=== PATIENT | female | born 1940 | race Caucasian/White ===

== ENCOUNTER 2019-03-14 08:18 | Inpatient (IN) | payer MEDICARE, OTHER ==
[2019-03-14] MEDS ORDERED: IPRATROPIUM-ALBUTEROL 3 ML NEB INHALATION STA (08:32)
[2019-03-14] MEDS ORDERED: HEPARIN SODIUM,PORCINE 5,000 UNIT/ML 1 ML VIAL IV PRN (08:53)
[2019-03-14] MEDS ORDERED: DILTIAZEM DRIP BOLUS FROM BAG 1 MG SOLN IV ONE (08:53)
[2019-03-14] MEDS ORDERED: HEPARIN SODIUM,PORCINE 5,000 UNIT/ML 1 ML VIAL IV ONE ×2 (08:53→16:54)
[2019-03-14] MEDS: HEPARIN SOD,PORK IN 0.45% NACL 25,000 UNIT in 0.45% NACL 1 250ML.BAG IV SCH (09:18)
--- NOTE | 2019-03-14 09:19 | XR ---
EXAMINATION TYPE: XR chest 2V DATE OF EXAM: 03/14/2019 HISTORY: difficulty breathing. REFERENCE: NONE. FINDINGS: There is a right lower lobe infiltrate. There is a left-sided effusion. Heart size upper li mits of normal. IMPRESSION: 1. RIGHT LOWER LOBE INFILTRATE, LIKELY REPRESENTING PNEUMONIA. 2. LEFT-SIDED EFFUSION. 3. BORDERLINE CARDIOMEGALY.
[2019-03-14 09:27] LABS: Basophils % (A) 1 %; Eosinophils # (A) 0.1 k/uL (0-0.7); Eosinophils % (A) 1 %; HCT 41.4 % (34.0-46.0); HGB 13.3 gm/dL (11.4-16.0); Lymphocytes # (A) 0.9 k/uL (1.0-4.8); Lymphocytes % (A) 10 %; MCH 27.6 pg (25.0-35.0); MCV 86.2 fL (80.0-100.0); Mean Platelet Volume 7.1; Monocytes # (A) 0.4 k/uL (0-1.0); Monocytes % (A) 4 %; Neutrophils # (A) 7.3 k/uL (1.3-7.7); Neutrophils % (A) 83 %; Platelet Count 274 k/uL (150-450); RBC 4.81 m/uL (3.80-5.40); RDW 13.5 % (11.5-15.5); WBC 8.7 k/uL (3.8-10.6)
[2019-03-14] MEDS ORDERED: cefTRIAXone IN SWFI 1,000 MG/10 ML SYRINGE IVP STA (09:32)
--- NOTE | 2019-03-14 09:35 | ED ---
SOB HPI - General Chief Complaint: Shortness of Breath Stated Complaint: SOB/Cough Time Seen by Provider: 03/14/19 08:25 Source: patient Mode of arrival: ambulatory Limitations: no limitations - History of Present Illness Initial Comments: 78-year-old female presents emergency Department chief complaint of increasing dyspnea. Patient states she sits increasing shortness breath over the 3-4 weeks. Patient has no significant cardiac or pulmonary history. Patient denies any current chest pain she does have some chest tightness, some noted wheezing. She denies being a smoker. Patient has no knee. Patient has fever or chills at this time but states that she has had some on-and-off symptoms. Denies any leg swelling out of the usual. Denies any abdominal pain including nausea vomiting diarrhea constipation. Patient does admit that she's been on several long plane flights recently. - Related Data Home Medications Medication Instructions Recorded Confirmed Montelukast [Singulair] 10 mg PO HS 03/14/19 03/14/19 Naproxen Sodium [Aleve] 440 mg PO DAILY PRN 03/14/19 03/14/19 Allergies Allergy/AdvReac Type Severity Reaction Status Date / Time No Known Allergies Allergy Verified 03/14/19 10:57 Review of Systems ROS Statement: Those systems with pertinent positive or pertinent negative responses have been documented in the HPI. ROS Other: All systems not noted in ROS Statement are negative. Past Medical History Past Medical History: No Reported History History of Any Multi-Drug Resistant Organisms: None Reported Past Surgical History: No Surgical Hx Reported Past Psychological History: No Psychological Hx Reported Smoking Status: Never smoker Past Alcohol Use History: None Reported Past Drug Use History: None Reported General Exam Limitations: no limitations General appearance: alert, in no apparent distress Head exam: Present: atraumatic, normocephalic, normal inspection Eye exam: Present: normal appearance, PERRL, EOMI. Absent: scleral icterus, conjunctival injection, periorbital swelling ENT exam: Present: normal exam, normal oropharynx, mucous membranes moist, TM's normal bilaterally Neck exam: Present: normal inspection. Absent: tenderness, meningismus, lymphadenopathy Respiratory exam: Present: respiratory distress (Mild), wheezes (Primarily right-sided), rhonchi. Absent: normal lung sounds bilaterally Cardiovascular Exam: Present: tachycardia, irregular rhythm, normal heart sounds. Absent: regular rate, normal rhythm, systolic murmur, diastolic murmur, rubs, gallop, clicks GI/Abdominal exam: Present: soft, normal bowel sounds. Absent: distended, tenderness, guarding, rebound, rigid Neurological exam: Present: alert, oriented X3 Course Vital Signs 03/14/19 03/14/19 03/14/19 08:19 08:28 08:56 Temperature 98.2 F Pulse Rate 89 137 H Respiratory 18 24 Rate Blood Pressure 164/112 O2 Sat by Pulse 97 Oximetry 03/14/19 03/14/19 09:10 11:44 Temperature Pulse Rate 132 H 102 H Respiratory 18 Rate Blood Pressure 142/92 O2 Sat by Pulse 98 Oximetry Medical Decision Making - Medical Decision Making Patient's found to be in A. fib RVR patient was treated with Cardizem chest x- ray shows evidence of pneumonia in which she has had a persistent cough. Patient given a dose of Rocephin was started on azithromycin edition. Patient will continue treatments. Patient's case discussed with hospitalist - Lab Data Result diagrams: 03/14/19 08:32 03/14/19 08:32 Lab Results 03/14/19 03/14/19 03/14/19 Range/Units 08:32 08:32 08:32 WBC 8.7 (3.8-10.6) k/uL RBC 4.81 (3.80-5.40) m/uL Hgb 13.3 (11.4-16.0) gm/dL Hct 41.4 (34.0-46.0) % MCV 86.2 (80.0-100.0) fL MCH 27.6 (25.0-35.0) pg MCHC 32.0 (31.0-37.0) g/dL RDW 13.5 (11.5-15.5) % Plt Count 274 (150-450) k/uL Neutrophils % 83 % Lymphocytes % 10 % Monocytes % 4 % Eosinophils % 1 % Basophils % 1 % Neutrophils # 7.3 (1.3-7.7) k/uL Lymphocytes # 0.9 L (1.0-4.8) k/uL Monocytes # 0.4 (0-1.0) k/uL Eosinophils # 0.1 (0-0.7) k/uL Basophils # 0.0 (0-0.2) k/uL PT 10.5 (9.0-12.0) sec INR 1.0 (<1.2) APTT 22.2 (22.0-30.0) sec D-Dimer 1.30 H (<0.60) mg/L FEU Sodium 130 L (137-145) mmol/L Potassium 4.4 (3.5-5.1) mmol/L Chloride 95 L (98-107) mmol/L Carbon Dioxide 23 (22-30) mmol/L Anion Gap 12 mmol/L BUN 17 (7-17) mg/dL Creatinine 0.63 (0.52-1.04) mg/dL Est GFR (CKD-EPI)AfAm >90 (>60 ml/min/1.73 sqM) Est GFR (CKD-EPI)NonAf 86 (>60 ml/min/1.73 sqM) Glucose 138 H (74-99) mg/dL Calcium 9.0 (8.4-10.2) mg/dL Magnesium 1.8 (1.6-2.3) mg/dL Total Bilirubin 1.1 (0.2-1.3) mg/dL AST 86 H (14-36) U/L ALT 117 H (4-34) U/L Alkaline Phosphatase 139 H (38-126) U/L Troponin I (0.000-0.034) ng/mL NT-Pro-B Natriuret Pep pg/mL Total Protein 6.6 (6.3-8.2) g/dL Albumin 4.0 (3.5-5.0) g/dL 03/14/19 03/14/19 Range/Units 08:32 08:32 WBC (3.8-10.6) k/uL RBC (3.80-5.40) m/uL Hgb (11.4-16.0) gm/dL Hct (34.0-46.0) % MCV (80.0-100.0) fL MCH (25.0-35.0) pg MCHC (31.0-37.0) g/dL RDW (11.5-15.5) % Plt Count (150-450) k/uL Neutrophils % % Lymphocytes % % Monocytes % % Eosinophils % % Basophils % % Neutrophils # (1.3-7.7) k/uL Lymphocytes # (1.0-4.8) k/uL Monocytes # (0-1.0) k/uL Eosinophils # (0-0.7) k/uL Basophils # (0-0.2) k/uL PT (9.0-12.0) sec INR (<1.2) APTT (22.0-30.0) sec D-Dimer (<0.60) mg/L FEU Sodium (137-145) mmol/L Potassium (3.5-5.1) mmol/L Chloride (98-107) mmol/L Carbon Dioxide (22-30) mmol/L Anion Gap mmol/L BUN (7-17) mg/dL Creatinine (0.52-1.04) mg/dL Est GFR (CKD-EPI)AfAm (>60 ml/min/1.73 sqM) Est GFR (CKD-EPI)NonAf (>60 ml/min/1.73 sqM) Glucose (74-99) mg/dL Calcium (8.4-10.2) mg/dL Magnesium (1.6-2.3) mg/dL Total Bilirubin (0.2-1.3) mg/dL AST (14-36) U/L ALT (4-34) U/L Alkaline Phosphatase (38-126) U/L Troponin I <0.012 (0.000-0.034) ng/mL NT-Pro-B Natriuret Pep 2420 pg/mL Total Protein (6.3-8.2) g/dL Albumin (3.5-5.0) g/dL 03/14/19 11:58 EKG 20:39 DC with RVR rate of 135 QRS 76 QT status QTC 326/49 Critical Care Time Critical Care Time: Yes Total Critical Care Time: 35 Critical Care Time: Total 35 minutes of critical care time were used initially evaluated the patient, reviewed past medical history or labs, EKG and chest x-ray. Patient's EKG shows A. fib RVR with a rate of 135 patient was given a bolus of Cardizem 5, started on drip of 5 per hour, patient's heart rate is improving. Chest x-ray shows evidence of pneumonia started on she required pneumonia antibiotics Rocephin and azithromycin. D-dimer was elevated CT was obtained which shows no evidence of PE. Patient will be admitted to with consult to cardiology Disposition Clinical Impression: Atrial fibrillation with RVR, Pneumonia Disposition: ADMITTED IP TO THIS HOSP Condition: Fair Referrals: Nonstaff,Physician [Primary Care Provider] - 1-2 days Time of Disposition: 11:58
[2019-03-14 09:38] LABS: ALT 117 U/L (4-34); AST 86 U/L (14-36); African American GFR (CKD) >90 (>60 ml/min/1.73 sqM); Alkaline Phosphatase 139 U/L (38-126); Anion Gap 12 mmol/L; Blood Urea Nitrogen 17 mg/dL (7-17); Carbon Dioxide 23 mmol/L (22-30); Chloride 95 mmol/L (98-107); Glucose 138 mg/dL (74-99); Magnesium 1.8 mg/dL (1.6-2.3); Non-African American GFR(CKD) 86 (>60 ml/min/1.73 sqM); Potassium 4.4 mmol/L (3.5-5.1); Sodium 130 mmol/L (137-145); Total Bilirubin 1.1 mg/dL (0.2-1.3); Total Protein 6.6 g/dL (6.3-8.2)
[2019-03-14] MEDS: DILTIAZEM 125 MG in SODIUM CHLORIDE 0.9% 100 ML IV SCH (09:40)
[2019-03-14 10:04] LABS: Partial Thromboplastin Time 22.2 sec (22.0-30.0); Prothrombin Time 10.5 sec (9.0-12.0)
[2019-03-14 10:09] LABS: D-Dimer 1.3 mg/L FEU (<0.60)
--- NOTE | 2019-03-14 11:31 | CT ---
EXAMINATION TYPE: CT chest angio for PE DATE OF EXAM: 03/14/2019 COMPARISON: None. HISTORY: SOB/Cough CT DLP: 588.5 mGycm Automated exposure control for dose reduction was used. CONTRAST: CT Chest for pulmonary embolism performed with with IV Contrast, patient injected with 81 mL of Isovu e 370. FINDINGS: There are bilateral pleural effusions. There are mild, diffuse changes of emphysema. There is no significant axillary, mediastinal or hilar adenopathy. There is no evidence of pulmonary embolus. The aorta is normal in caliber without evidence of dissection. There is no pericardial fluid seen. Th e heart is mildly enlarged. Visualized portions of the upper abdomen are unremarkable. There is hypertrophic spondylosis involving the dorsal spine. IMPRESSION: 1. This examination is negative for pulmonary embolus. 2. COPD. 3. Bilateral effusions.
[2019-03-14] MEDS ORDERED: NALOXONE 0.4 MG/ML 1 ML VIAL IV PRN (11:59)
[2019-03-14] MEDS ORDERED: AZITHROMYCIN 500 MG in SODIUM CHLORIDE 0.9% 250 ML IVPB STA (12:00)
[2019-03-14 12:43] LABS: Appearance,Urine Cloudy (Clear); Bacteria,Urine Occasional /hpf; Bilirubin,Urine Negative (Negative); Blood,Urine Trace (Negative); Color,Urine Light Yellow; Glucose,Urine (UA) Negative (Negative); Hyaline Casts,Urine 1 /lpf (0-2); Ketones,Urine Trace (Negative); Leukocyte Esterase,Urine Large (Negative); Nitrite,Urine Positive (Negative); PH, Urine 6.5 (5.0-8.0); Protein,Urine Negative (Negative); RBC,Urine 3 /hpf (0-5); Specific Gravity,Urine 1.023 (1.001-1.035); Squamous Epithelial Cell,Urine <1 /hpf (0-4); Urobilinogen,Urine <2.0 mg/dL (<2.0); WBC,Urine 42 /hpf (0-5)
--- NOTE | 2019-03-14 14:13 | P.HPIM ---
History of Present Illness H&P Date: 03/14/19 The patient is a 78-year-old female, never smoker with a past medical history of osteoarthritis who presented to the ED with complaints of gradually worsening shortness of breath. The patient reports that her breathing has been giving her trouble for the last 3-4 weeks, but has really worsened since she flew back from [place] yesterday. She reports that during her trip, she gradually became more dyspneic and she had to take a wheelchair to get around the airport. She also reports some chest congestion along with a nonproductive cough ongoing for the past 1-2 weeks. The patient also states that she has had multiple UTIs in the past 1 year and has been on 3 different antibiotics for this. She is currently denying dysuria, hematuria, increased frequency, or urgency. She lives primarily in [place], though travels quite a bit to [place] in [place] since her children live in the states. She denied leg pain, chest pain, nausea, vomiting, dizziness, or diaphoresis. She also denied fever or chills. She underwent an extensive evaluation in the emergency room with an EKG that revealed A. fib with RVR at 1 35 bpm, chest x-ray that revealed a right lower lobe infiltrate suspicious for pneumonia along with a left-sided pleural effusion. Her d-dimer was elevated at 1.3 with a subsequent chest CTA which revealed no PE and showed hyperinflation along with bilateral pleural effusions. Laboratory evaluation revealed a troponin of less than 0.012, alk phos 139, AST 86, ALT 117, BNP 2420, WBC count 8.7, hemoglobin 13.3, platelets 274, sodium 1:30, potassium 4.4, BUN 17, creatinine 0.63, and a glucose of 138. Review of Systems Pertinent positives and negatives as discussed in HPI, a complete review of systems was performed and all other systems are negative. Past Medical History Past Medical History: No Reported History History of Any Multi-Drug Resistant Organisms: None Reported Past Surgical History: No Surgical Hx Reported Past Psychological History: No Psychological Hx Reported Smoking Status: Never smoker Past Alcohol Use History: None Reported Past Drug Use History: None Reported Medications and Allergies Home Medications Medication Instructions Recorded Confirmed Type Montelukast [Singulair] 10 mg PO HS 03/14/19 03/14/19 History Naproxen Sodium [Aleve] 440 mg PO DAILY PRN 03/14/19 03/14/19 History Allergies Allergy/AdvReac Type Severity Reaction Status Date / Time No Known Allergies Allergy Verified 03/14/19 10:57 Physical Exam Vitals: Vital Signs Temp Pulse Resp BP Pulse Ox 03/14/19 12:28 108 H 18 117/82 97 03/14/19 12:00 98.2 F 112 H 18 117/82 97 03/14/19 11:44 102 H 18 142/92 98 03/14/19 11:00 112 H 18 97 03/14/19 10:00 126 H 18 97 03/14/19 09:10 132 H 03/14/19 09:00 120 H 18 114/101 97 03/14/19 08:56 137 H 03/14/19 08:42 123 H 18 97 03/14/19 08:28 24 03/14/19 08:19 98.2 F 89 18 164/112 97 Intake and Output 03/13/19 03/14/19 03/14/19 22:59 06:59 14:59 Other: Weight 108.862 kg General: non toxic, no distress, appears at stated age, obese Derm: no unusual rashes/lesions no unusual ecchymoses, warm, dry Head: atraumatic, normocephalic, symmetric Eyes: EOMI, no lid lag, anicteric sclera, pupils equal round reactive to light ENT: Nose and ears atraumatic, no thrush, no pharyngeal erythema Neck: No thyromegaly, no cervical lymphadenopathy, trachea midline, supple Mouth: no lip lesion, mucus membranes moist Cardiovascular: S1S2 reg, no murmur, positive posterior tibial pulse bilateral, 1+ bilateral lower extremity edema, capillary refill less than 2 seconds Lungs: Mild scattered rhonchi with minimal expiratory wheezing and some bibasilar rales, no accessory muscle use Abdominal: soft, nontender to palpation, no guarding, no appreciable organomega ly, normal bowel sounds Ext: no gross muscle atrophy, muscle strength 5 out of 5 in all 4 extremities grossly, no contractures, no calf tenderness bilaterally Neuro: CN II-XI grossly intact, light touch intact all 4 extremities, finger to nose within normal limits, Psych: Alert, oriented, appropriate affect Results CBC & Chem 7: 03/14/19 08:32 03/14/19 08:32 Labs: Abnormal Lab Results - Last 24 Hours (Table) 03/14/19 03/14/19 03/14/19 Range/Units 08:32 08:32 08:32 Lymphocytes # 0.9 L (1.0-4.8) k/uL D-Dimer 1.30 H (<0.60) mg/L FEU Sodium 130 L (137-145) mmol/L Chloride 95 L (98-107) mmol/L Glucose 138 H (74-99) mg/dL AST 86 H (14-36) U/L ALT 117 H (4-34) U/L Alkaline Phosphatase 139 H (38-126) U/L Urine Appearance (Clear) Urine Ketones (Negative) Urine Blood (Negative) Urine Nitrite (Negative) Ur Leukocyte Esterase (Negative) Urine WBC (0-5) /hpf Urine WBC Clumps (None) /hpf Urine Bacteria (None) /hpf 03/14/19 Range/Units 12:12 Lymphocytes # (1.0-4.8) k/uL D-Dimer (<0.60) mg/L FEU Sodium (137-145) mmol/L Chloride (98-107) mmol/L Glucose (74-99) mg/dL AST (14-36) U/L ALT (4-34) U/L Alkaline Phosphatase (38-126) U/L Urine Appearance Cloudy H (Clear) Urine Ketones Trace H (Negative) Urine Blood Trace H (Negative) Urine Nitrite Positive H (Negative) Ur Leukocyte Esterase Large H (Negative) Urine WBC 42 H (0-5) /hpf Urine WBC Clumps Few H (None) /hpf Urine Bacteria Occasional H (None) /hpf Assessment and Plan Plan: Newly diagnosed A. fib -Echocardiogram -Patient received Cardizem IV push in the emergency room -Continue with Cardizem infusion -Cardiology consult -Heparin infusion for now -Cardiac monitoring Community acquired pneumonia -Continue with azithromycin and ceftriaxone -Supplemental oxygen Abnormal LFTs -Possibly due to acute illness -Monitor for now Hyponatremia -Monitor BMP for now Fluid overload, elevated BNP, LE edema -Obtain Echocardiogram DVT prophylaxis -Heparin The patient is admitted with an anticipated less than 2 midnight stay for evaluation of shortness of breath CODE STATUS: No Code Discussed with: Patient Anticipated discharge date: 1-[address]: Home A total of 40 minutes was spent on the care of this complex patient more than 50% of the time was spent in counseling and care coordination.
[2019-03-14] MEDS: IPRATROPIUM-ALBUTEROL 3 ML NEB INHALATION SCH (19:27)
[2019-03-14] MEDS: MONTELUKAST 10 MG TAB PO SCH (20:33)
[2019-03-15 06:19] LABS: HGB 12.1 gm/dL (11.4-16.0); MCH 27.9 pg (25.0-35.0); MCHC 32.7 g/dL (31.0-37.0); MCV 85.2 fL (80.0-100.0); Mean Platelet Volume 7.1; Platelet Count 235 k/uL (150-450); RBC 4.34 m/uL (3.80-5.40); RDW 13.4 % (11.5-15.5); WBC 8.8 k/uL (3.8-10.6)
[2019-03-15 06:54] LABS: ALT 98 U/L (4-34); AST 69 U/L (14-36); African American GFR (CKD) >90 (>60 ml/min/1.73 sqM); Albumin 3.7 g/dL (3.5-5.0); Alkaline Phosphatase 124 U/L (38-126); Anion Gap 12 mmol/L; Blood Urea Nitrogen 14 mg/dL (7-17); Calcium 8.5 mg/dL (8.4-10.2); Carbon Dioxide 22 mmol/L (22-30); Chloride 97 mmol/L (98-107); Glucose 117 mg/dL (74-99); Non-African American GFR(CKD) 88 (>60 ml/min/1.73 sqM); Potassium 3.8 mmol/L (3.5-5.1); Sodium 131 mmol/L (137-145); Total Bilirubin 1.1 mg/dL (0.2-1.3); Total Protein 6.4 g/dL (6.3-8.2)
[2019-03-15] MEDS: IPRATROPIUM-ALBUTEROL 3 ML NEB INHALATION SCH ×4 (08:32→18:53)
[2019-03-15] MEDS: AZITHROMYCIN 250 MG TAB PO SCH (08:36)
[2019-03-15] MEDS: METOPROLOL TARTRATE 50 MG TAB PO SCH ×2 (10:30→20:20)
--- NOTE | 2019-03-15 14:02 | P.CRDCN ---
History of Present Illness Consult date: 03/15/19 Reason for Consult (text): afib rvr Consult reason: atrial fibrillation Chief complaint: Afib RVR History of present illness: HISTORY OF PRESENT ILLNESS AND PLAN: This is a 78-year-old female with history of stress incontinence, chronic bladder infection x 1 year, RIGHT hip OA and asthma. Patient presents to the emergency room on 03/14/2019 with complaints of increasing shortness of breath and chest tightness over the past 3-4 weeks. Patient states she has been traveling often since January to visit her family. Patient states she went to [place] on for a few weeks in January and then to [place] for a few weeks in February. Patient states she used to work here at [employer] [facility] [employer]. Patient has no smoking history. Patient states her weight is up approximately 20 pounds in the past month or so. Patient states she's had increasing shortness of breath, productive hacking cough and fatigue over the past few weeks. Patient has not had a fever at home. Patient also states she has having palpitations at home the past day or 2 and decided to come to the ER. Patient presents with atrial fibrillation with rapid ventricular rate on monitors heart rate currently 124. BP 159/78. 93% on room air. Afebrile. CBC WNL. BNP 2420. D dimer elevated at 1.30. CTA of chest negative for PE but does show COPD and bilateral effusions. Patient states she is also supposed to go for a bladder stimulator for stress incontinence at the end of the month. She continues with hacking productive cough and audible wheeze. No smoking. No diabetes. No history of significant cardiac or pulmonary history. Patient has never followed cardiology. Pt has had pneumonia vaccines but no influenza shot this season. SIGNIFICANT PAST MEDICAL HISTORY: Stress incontinence, chronic bladder infection x 1 year, RIGHT hip OA and asthma. PAST SURGICAL HISTORY: See list. EKG = Afib RVR, with PVC's HR 135. Troponins negative x 1 SIGNIFICANT LABORATORY VALUES: Chest x-ray 03/14/18 = RIGHT lower lobe possible developing pneumonia. LEFT lower lobe effusion. Borderline cardiomegaly. CTA of chest 03/14/18 = Negative for PE. Positive for COPD with bilateral effusions. REVIEW OF SYSTEMS: CONSTITUTIONAL: Denies fever. Denies chills. EYES: Denies blurred vision. Denies blurred vision or vision changes. Denies eye pain. EARS, NOSE, MOUTH & THROAT: Denies headache. Denies sore throat. Denies ear pain Denies hemoptysis. CARDIOVASCULAR: Denies chest pain. C/O shortness of breath. Denies orthopnea. Denies PND. C/O palpitations. RESPIRATORY: C/O cough, sputum, wheezing and shortness of breath. GASTROINTESTINAL: Denies abdominal pain or distention. Denies diarrhea. Denies constipation. Denies nausea. Denies vomiting. MUSCULOSKELETAL: C/O myalgias. INTEGUMENTARY: Denies pruitis. Denies rash. ENDOCRINE: C/O fatigue. Denies weight change. Denies polydipsia. Denies polyurina Denies heat/cold intolerance. GENITOURINARY: C/O incontinence of urine. Denies burning, hematuria or urgency with micturation. HEMATOLOGIC: Denies history of anemia. Denies bleeding. NEUROLOGIC: Denies numbness. Denies tingling. C/O weakness. PSYCHIATRIC: Denies anxiety. Denies depression. PHYSICAL EXAM: VITAL SIGNS: BP 159/78. 93% on room air. Afebrile. GENERAL: Well developed, in no acute distress. HEENT: Head is atraumatic, normocephalic. Pupils are equal, round. Extra ocular movements intact. Mucous membranes moist. Neck supple. No JVD. No carotid bruit. No thyromegaly. LUNGS: Bilateral wheeze and course rhonchi in upper/lower lung barton. No chest wall tenderness on palpation or with deep breathing. HEART: Tachycardic rate and irregular rhythm, no rubs or gallops. S1 and S2 heard. No murmur. ABDOMEN: Abdominal exam, WNL. Bowel sounds x4 quads. Soft, non-tender, without masses, organomegaly, or abdominal aorta enlargement. EXTREMITIES/VASCULAR: Extremities have easily palpable radial, femoral, dorsalis pedis and posterior tibial pulses. No cyanosis, calf tenderness. Scant BLE edema. NEUROLOGIC: Patient is awake, alert and oriented x3. No focal neurologic abnormalities. FINAL IMPRESSION: 1. Pneumonia 2. Acute Bronchitis 3. Ashtma 4. New onset Atrial fibrillation with RVR 5. Bilateral Pleural effusions. PLAN: Discontinue IV heparin. Discontinue Cardizem drip. START Metoprolol Tartrate 50mg twice daily, first dose NOW. Start Eliquis 5 mg twice daily. Continue same all other medical/medication regime. Continue with antibiotic/updraft treatments. Heart healthy diet. Nurse Practitioner note has been reviewed by the Physician. Signing provider agrees with the documented findings, assessment and plan of care. Past Medical History Past Medical History: No Reported History History of Any Multi-Drug Resistant Organisms: None Reported Past Surgical History: No Surgical Hx Reported Additional Past Surgical History / Comment(s): THBSO, Rhinoplasty Past Anesthesia/Blood Transfusion Reactions: No Reported Reaction Past Psychological History: No Psychological Hx Reported Smoking Status: Never smoker Past Alcohol Use History: None Reported Past Drug Use History: None Reported - Past Family History Father Additional Family Medical History / Comment(s): Alcoholism Mother Family Medical History: CVA/TIA Additional Family Medical History / Comment(s): Questionable CVA Medications and Allergies Home Medications Medication Instructions Recorded Confirmed Type Montelukast [Singulair] 10 mg PO HS 03/14/19 03/14/19 History Naproxen Sodium [Aleve] 440 mg PO DAILY PRN 03/14/19 03/14/19 History Allergies Allergy/AdvReac Type Severity Reaction Status Date / Time No Known Allergies Allergy Verified 03/14/19 10:57 Physical Exam Vitals: Vital Signs Temp Pulse Pulse Resp BP Pulse Ox 03/15/19 12:37 97.8 F 76 16 110/78 94 L 03/15/19 12:05 76 03/15/19 11:56 72 03/15/19 09:00 66 03/15/19 08:47 62 94 L 03/15/19 08:00 98.2 F 124 H 16 159/78 93 L 03/15/19 05:16 97.8 F 108 H 18 111/78 95 03/15/19 00:03 97.9 F 111 H 16 135/79 95 03/14/19 21:24 100 03/14/19 20:30 53 L 18 03/14/19 19:45 98.2 F 52 L 18 132/89 93 L 03/14/19 19:38 109 H 03/14/19 19:27 109 H 03/14/19 16:00 116 H 20 140/89 95 03/14/19 15:46 93 L Intake and Output 03/14/19 03/15/19 03/15/19 22:59 06:59 14:59 Intake Total 610.209 174.333 720 Balance 610.209 174.333 720 Intake: Intake, IV Titration 130.209 174.333 Amount Diltiazem 125 mg In 54.542 Sodium Chloride 0.9% 100 ml @ 5 MG/HR 5 mls/hr IV .Q24H [facility] Rx#:[id number] Heparin Sod,Pork in 0.45% 75.667 174.333 NaCl 25,000 unit In 0.45 % NaCl 1 250ml.bag @ 9. 186 UNITS/KG/HR 10 mls/hr IV .Q24H [facility] Rx#: [id number] Oral 480 720 Other: Voiding Method Toilet Toilet Toilet # Voids 1 Weight 109.3 kg Results 03/15/19 05:58 03/15/19 05:58 Cardiac Enzymes 03/15/19 Range/Units 05:58 AST 69 H (14-36) U/L Coagulation 03/14/19 03/14/19 03/15/19 Range/Units 15:55 22:55 05:58 APTT 28.1 35.5 H 46.8 H (22.0-30.0) sec CBC 03/15/19 Range/Units 05:58 WBC 8.8 (3.8-10.6) k/uL RBC 4.34 (3.80-5.40) m/uL Hgb 12.1 (11.4-16.0) gm/dL Hct 37.0 (34.0-46.0) % Plt Count 235 (150-450) k/uL Comprehensive Metabolic Panel 03/15/19 Range/Units 05:58 Sodium 131 L (137-145) mmol/L Potassium 3.8 (3.5-5.1) mmol/L Chloride 97 L (98-107) mmol/L Carbon Dioxide 22 (22-30) mmol/L BUN 14 (7-17) mg/dL Creatinine 0.59 (0.52-1.04) mg/dL Glucose 117 H (74-99) mg/dL Calcium 8.5 (8.4-10.2) mg/dL AST 69 H (14-36) U/L ALT 98 H (4-34) U/L Alkaline Phosphatase 124 (38-126) U/L Total Protein 6.4 (6.3-8.2) g/dL Albumin 3.7 (3.5-5.0) g/dL Current Medications Generic Name Dose Route Start Last Admin Trade Name Freq PRN Reason Stop Dose Admin Albuterol/Ipratropium 3 ml 03/14/19 20:00 03/15/19 11:55 Duoneb 0.5 Mg-3 Mg/3 Ml Soln INHALATION 3 ml RT-QID [facility] Administration Apixaban 5 mg 03/15/19 13:45 Eliquis PO BID [facility] Azithromycin 250 mg 03/15/19 09:00 03/15/19 08:36 Zithromax PO 250 mg DAILY [facility] Administration Diltiazem HCl 125 mg/ Sodium 125 mls @ 5 mls/hr 03/14/19 09:15 03/14/19 21:23 Chloride IV 5 mg/hr .Q24H [facility] 5 mls/hr Infusion 5 MG/HR Ceftriaxone Sodium 1 gm/ 50 mls @ 100 mls/hr 03/15/19 09:00 03/15/19 09:15 Sodium Chloride IVPB 100 mls/hr Q24HR [facility] Administration Metoprolol Tartrate 50 mg 03/15/19 10:15 03/15/19 10:30 Lopressor PO 50 mg BID [facility] Administration Montelukast Sodium 10 mg 03/14/19 21:00 03/14/19 20:33 Singulair PO 10 mg HS [facility] Administration Naloxone HCl 0.2 mg 03/14/19 11:59 Narcan IV Q2M PRN Opioid Reversal Intake and Output 03/14/19 03/15/19 03/15/19 22:59 06:59 14:59 Intake Total 610.209 174.333 720 Balance 610.209 174.333 720 Intake: Intake, IV Titration 130.209 174.333 Amount Diltiazem 125 mg In 54.542 Sodium Chloride 0.9% 100 ml @ 5 MG/HR 5 mls/hr IV .Q24H [facility] Rx#:[id number] Heparin Sod,Pork in 0.45% 75.667 174.333 NaCl 25,000 unit In 0.45 % NaCl 1 250ml.bag @ 9. 186 UNITS/KG/HR 10 mls/hr IV .Q24H [facility] Rx#: [id number] Oral 480 720 Other: Voiding Method Toilet Toilet Toilet # Voids 1 Weight 109.3 kg 03/15/19 05:58 03/15/19 05:58 - EKG Interpretation EKG shows: atrial fibrillation
[2019-03-15] MEDS: APIXABAN 5 MG TAB PO SCH ×2 (14:14→20:20)
--- NOTE | 2019-03-15 15:17 | P.PN ---
Subjective Progress Note Date: 03/15/19 The patient is a 78-year-old female, never smoker with a PMH of stress incontinence and osteoarthritis who presented to the ED with complaints of gradually worsening shortness of breath. The patient reported that her breathing has been giving her trouble for the previous 3-4 weeks, but had really worsened since she flew back from [place] the day prior. She reported that during her trip, she gradually became more dyspneic and she had to take a wheelchair to get around the airport. She also reported some chest congestion along with a nonproductive cough ongoing for the past 1-2 weeks. The patient a lso stated that she had multiple UTIs in the past 1 year and has been on 3 different antibiotics for this. She denied dysuria, hematuria, increased frequency, or urgency. She lives primarily in [place], though travels quite a bit to [place] in [place] since her children live in the states. She denied leg pain, chest pain, nausea, vomiting, dizziness, or diaphoresis. She also denied fever or chills. She underwent an extensive evaluation in the emergency room with an EKG that revealed A. fib with RVR at 1 35 bpm, chest x-ray that revealed a right lower lobe infiltrate suspicious for pneumonia along with a left-sided pleural effusion. Her d-dimer was elevated at 1.3 with a subsequent chest CTA which revealed no PE and showed hyperinflation along with bilateral pleural effusions. Laboratory evaluation revealed a troponin of less than 0.012, alk phos 139, AST 86, ALT 117, BNP 2420, WBC count 8.7, hemoglobin 13.3, platelets 274, sodium 1:30, potassium 4.4, BUN 17, creatinine 0.63, and a glucose of 138. The patient was admitted for further management of newly diagnosed Afib with RVR. Cardiology evaluated the patient and recommended discontinuing the heparin infusion and start the patient on Eliquis orally. The patient's Cardizem infusion was also discontinued in lieu of metoprolol. Patient was seen and examined at the bedside on 03/15. She reported that her shortness of breath had improved significantly since admission. She denied chest pain, nausea, vomiting, or diaphoresis. She also denied abdominal pain, fever, chills, or neck pain. Objective - Vital Signs Vital signs: Vital Signs Temp 97.8 F 03/15/19 12:37 Pulse 94 03/15/19 15:05 Resp 16 03/15/19 12:37 BP 110/78 03/15/19 12:37 Pulse Ox 92 L 03/15/19 14:55 Intake & Output 03/14/19 03/15/19 03/15/19 18:59 06:59 18:59 Intake Total 75.667 708.875 720 Balance 75.667 708.875 720 Weight 108.862 kg 109.3 kg Intake: Intake, IV Titration 75.667 228.875 Amount Diltiazem 125 mg In 54.542 Sodium Chloride 0.9% 100 ml @ 5 MG/HR 5 mls/hr IV .Q24H [facility] Rx#:[id number] Heparin Sod,Pork in 0.45% 75.667 174.333 NaCl 25,000 unit In 0.45 % NaCl 1 250ml.bag @ 9. 186 UNITS/KG/HR 10 mls/hr IV .Q24H [facility] Rx#: [id number] Oral 480 720 Other: Voiding Method Toilet Toilet # Voids 1 - Exam General: Non-toxic, in no acute distress, appears stated age, obese HEENT: NC/AT, anicteric sclerae, moist conjunctiva, no lid-lag, PERRLA Cardiovascular: S1/S2 wnl, no murmurs, rubs, or gallops Lungs: Clear to auscultation, normal respiratory effort, no accessory muscle use Abdominal: Soft, non-tender, non-distended, no guarding, rebound, or rigidity Skin: Warm, dry Extremities: 1+ bilateral lower extremity edema, no contractures Psychiatric: Alert and oriented to person, place and time, appropriate affect Neuro: CN II-XII grossly intact, Strength 5/5 in all 4 extremities, Speech intact, Sensation to light touch grossly intact throughout - Labs CBC & Chem 7: 03/15/19 05:58 03/15/19 05:58 Labs: Abnormal Lab Results - Last 24 Hours (Table) 03/14/19 03/15/19 03/15/19 Range/Units 22:55 05:58 05:58 APTT 35.5 H 46.8 H (22.0-30.0) sec Sodium 131 L (137-145) mmol/L Chloride 97 L (98-107) mmol/L Glucose 117 H (74-99) mg/dL AST 69 H (14-36) U/L ALT 98 H (4-34) U/L Microbiology - Last 24 Hours (Table) 03/14/19 11:39 Blood Culture - Preliminary Blood No Growth after 24 hours 03/14/19 12:12 Urine Culture - Final Urine,Voided Assessment and Plan Plan: Newly diagnosed A. fib -Echocardiogram pending -Cardiology recommendations appreciated -Continue with Eliquis and metoprolol -Cardiac monitoring Community acquired pneumonia -Continue with azithromycin and ceftriaxone -Supplemental oxygen Abnormal LFTs, improved -Possibly due to acute illness -Monitor for now Hyponatremia -Monitor BMP for now Fluid overload, elevated BNP, LE edema -Echocardiogram pending DVT prophylaxis -Eliquis Discussed with: Patient Anticipated discharge date: 03/[address]: Home A total of 30 minutes was spent on the care of this complex patient more than 50% of the time was spent in counseling and care coordination.
[2019-03-15] MEDS ORDERED: FUROSEMIDE 10 MG/ML 4 ML VIAL IV STA ×2 (16:26→17:32)
[2019-03-15] MEDS ORDERED: ACETAMINOPHEN TAB 325 MG TAB PO PRN (16:27)
--- NOTE | 2019-03-15 16:51 | XR ---
EXAMINATION TYPE: XR chest 1V DATE OF EXAM: 03/15/2019 COMPARISON: 03/14/2019 HISTORY: Short of breath TECHNIQUE: FINDINGS: There is probably vascular congestion. There is blunting of the costophrenic angles. Heart is enlarged. There is some pulmonary interstitial edema. There are chest leads. IMPRESSION: Congestive heart failure with pleural effusions. Chest appears slightly worse than yester day.
[2019-03-15] MEDS: DILTIAZEM 125 MG in SODIUM CHLORIDE 0.9% 100 ML IV SCH (19:53)
[2019-03-15] MEDS: HEPARIN SOD,PORK IN 0.45% NACL 25,000 UNIT in 0.45% NACL 1 250ML.BAG IV SCH (19:53)
[2019-03-15] MEDS: MONTELUKAST 10 MG TAB PO SCH (20:20)
[2019-03-15] MEDS: FUROSEMIDE 10 MG/ML 4 ML VIAL IV SCH (20:20)
[2019-03-16 06:45] LABS: HGB 11.6 gm/dL (11.4-16.0); MCH 27.7 pg (25.0-35.0); MCHC 33.1 g/dL (31.0-37.0); MCV 83.6 fL (80.0-100.0); Mean Platelet Volume 7.2; Platelet Count 194 k/uL (150-450); RBC 4.18 m/uL (3.80-5.40); RDW 13.3 % (11.5-15.5); WBC 9.3 k/uL (3.8-10.6)
[2019-03-16 07:01] LABS: Calcium 8.3 mg/dL (8.4-10.2); Potassium 3.6 mmol/L (3.5-5.1)
[2019-03-16] MEDS: IPRATROPIUM-ALBUTEROL 3 ML NEB INHALATION SCH ×4 (07:56→21:07)
[2019-03-16] MEDS: APIXABAN 5 MG TAB PO SCH ×2 (09:38→20:55)
[2019-03-16] MEDS: FUROSEMIDE 10 MG/ML 4 ML VIAL IV SCH ×2 (09:38→17:29)
[2019-03-16] MEDS: METOPROLOL TARTRATE 50 MG TAB PO SCH ×2 (09:38→20:55)
[2019-03-16] MEDS: AZITHROMYCIN 250 MG TAB PO SCH (09:38)
--- NOTE | 2019-03-16 12:01 | ECHOF ---
Referral Reason:Afib RVR MEASUREMENTS -------- HEIGHT: 167.6 cm WEIGHT: 108.9 kg BP: 130/84 RVIDd: 3.4 cm (< 3.3) IVSd: 1.4 cm (0.6 - 1.1) LVIDd: 4.6 cm (3.9 - 5.3) LVPWd: 1.3 cm (0.6 - 1.1) IVSs: 1.5 cm LVIDs: 4.1 cm LVPWs: 1.3 cm LA Diam: 3.5 cm (2.7 - 3.8) LAESV Index (A-L): 29.11 ml/m Ao Diam: 2.9 cm (2.0 - 3.7) AV Cusp: 2.1 cm (1.5 - 2.6) MV EXCURSION: 10.759 mm (> 18.000) MV EF SLOPE: 42 mm/s (70 - 150) EPSS: 1.2 cm RAP: 15.00 mmHg RVSP: 48.03 mmHg TAPSE: 12.49 mm FINDINGS -------- Atrial fibrillation. This was a technically adequate study. The left ventricular size is normal. There is moderate concentric left ventricular hypertrophy. O verall left ventricular systolic function is severely impaired with, an EF between 20 - 25 %. The right ventricle is mildly enlarged. LA is midly dilated 29-33ml/m2. The right atrium is normal in size. Interatrial and interventricular septum intact. The aortic valve is trileaflet and appears structurally normal. Mild mitral annular calcification present. Moderate mitral regurgitation is present. Mild tricuspid regurgitation present. There is moderate pulmonary hypertension. The right ventric ular systolic pressure, as measured by Doppler, is 48.03mmHg. Trace/mild (physiologic) pulmonic regurgitation. The aortic root size is normal. The inferior vena cava is dilated with no significant inspiratory collapse which is consistent estima rajendra right atrial pressure of >15 mmHg. There is no pericardial effusion. CONCLUSIONS -------- 1. Atrial fibrillation. 2. This was a technically adequate study. 3. The left ventricular size is normal. 4. There is moderate concentric left ventricular hypertrophy. 5. Overall left ventricular systolic function is severely impaired with, an EF between 20 - 25 %. 6. The right ventricle is mildly enlarged. 7. LA is midly dilated 29-33ml/m2. 8. The right atrium is normal in size. 9. Interatrial and interventricular septum intact. 10. The aortic valve is trileaflet and appears structurally normal. 11. Mild mitral annular calcification present. 12. Moderate mitral regurgitation is present. 13. Mild tricuspid regurgitation present. 14. There is moderate pulmonary hypertension. 15. The right ventricular systolic pressure, as measured by Doppler, is 48.03mmHg. 16. Trace/mild (physiologic) pulmonic regurgitation. 17. The aortic root size is normal. 18. The inferior vena cava is dilated with no significant inspiratory collapse which is consistent es timated right atrial pressure of >15 mmHg. 19. There is no pericardial effusion. ARTIST [employer]NE[employer]IN COLORING: Ciarra Do RDCS
[2019-03-16] MEDS: SPIRONOLACTONE 25 MG TAB PO SCH (12:49)
[2019-03-16] MEDS: LISINOPRIL 5 MG TAB PO SCH (12:49)
--- NOTE | 2019-03-16 15:19 | P.PN ---
Subjective Progress Note Date: 03/16/19 Principal diagnosis: A. fib, new onset CHF Patient was seen and examined. No acute events overnight. Patient reports improvement in her breathing since admission. She denies any chest pain or palpitations. No nausea or vomiting. No fever or chills. Currently rate controlled with heart rate in the 70s on telemetry. Objective - Vital Signs Vital signs: Vital Signs Temp 97.8 F 03/16/19 12:00 Pulse 74 03/16/19 12:00 Resp 20 03/16/19 12:00 BP 122/59 03/16/19 12:00 Pulse Ox 96 03/16/19 12:00 Intake & Output 03/15/19 03/16/19 03/16/19 18:59 06:59 18:59 Intake Total 720 340 360 Output Total 250 Balance 720 90 360 Weight 110 kg Intake: Intake, IV Titration 100 Amount cefTRIAXone 1 gm In 100 Sodium Chloride 0.9% 50 ml @ 100 mls/hr IVPB Q24HR [facility] Rx#:[id number] Oral 720 240 360 Output: Urine 250 Other: Voiding Method Toilet Toilet Toilet # Voids 1 2 - Exam General: [non toxic], [no distress], [appears at stated age] Derm: [warm], [dry] Head: [atraumatic], [normocephalic], [symmetric] Eyes: [EOMI], [no lid lag], [anicteric sclera] Mouth: [no lip lesion], [mucus membranes moist] Cardiovascular: [S1S2 reg], [no murmur], [positive DP pulse bilateral], Lungs: [Decreased breath sounds bilateral], [scattered rhonchi] , [no accessory muscle use] Abdominal: [soft], [ nontender to palpation], [no guarding], [no appreciable organomegaly] Ext: [no gross muscle atrophy], [no edema], [no contractures] Neuro: [no focal neuro deficits] Psych: [Alert], [oriented], [appropriate affect] - Labs CBC & Chem 7: 03/16/19 06:09 03/16/19 06:09 Labs: Abnormal Lab Results - Last 24 Hours (Table) 03/16/19 Range/Units 06:09 Sodium 125 L (137-145) mmol/L Chloride 89 L (98-107) mmol/L Calcium 8.3 L (8.4-10.2) mg/dL Microbiology - Last 24 Hours (Table) 03/14/19 11:39 Blood Culture - Preliminary Blood No Growth after 48 hours 03/14/19 12:12 Urine Culture - Final Urine,Voided Assessment and Plan Assessment: Newly diagnosed atrial fibrillation Acute systolic CHF exacerbation, new diagnosis Hyponatremia Abnormal UA Morbid obesity Patient is currently rate controlled with heart rate in the 70s. She is on Eliquis for anticoagulation and metoprolol for rate control. Case was discussed with cardiology, plans on cardiac catheterization in the outpatient setting. Echocardiogram showing EF 20-25%. Patient has been started on ANKUR inhibitor and beta juan c. Aldactone has been added as well. She is currently being diuresed with Lasix 40 mg IV twice a day. Strict intake and output intake has been ordered along with daily weights. Cardiology is on board. Patient's sodium has worsened from 131-125. She is also on IV diuresis. Will obtain urine electrolytes and osmolality for further workup of her hyponatremia. I would discontinue azithromycin as I do not think that patient has pneumonia. We'll continue ceftriaxone for 1 more day given her abnormal UA with positive nitrite and leukocyte esterase. Blood cultures and urine culture has been negative thus far. [Discussed with cardiology, continue IV diuresis. Plans for outpatient cardiac catheterization. She is pending clinical improvement. Likely DC in 1-3 days.]
--- NOTE | 2019-03-16 15:37 | P.PN ---
Subjective Progress Note Date: 03/16/19 This is a 78-year-old female with history of stress incontinence, chronic bladder infection x 1 year, RIGHT hip OA and asthma. Patient presents to the emergency room on 03/14/2019 with complaints of increasing shortness of breath and chest tightness over the past 3-4 weeks. Patient states she has been traveling often since January to visit her family. Patient states she went to [place] on for a few weeks in January and then to [place] for a few weeks in February. Patient used to work here at [employer]. Patient has no smoking history. Patient states her weight is up approximately 20 pounds in the past month or so. Patient states she's had increasing shortness of breath, productive hacking cough and fatigue over the past few weeks. Patient has not had a fever at home. Patient also states she has having palpitations at home the past day or 2 and decided to come to the ER. Patient presents with atrial fibrillation with rapid ventricular rate . She was seen in consultation yesterday by Dr. Sean Eng. Patient had been initiated on Eliquis for anticoagulation as well as metoprolol. She was also initiated on IV Lasix and has been overall diuresing well. She does state that her breathing is mildly improved today, continues to have some shortness of breath .Echocardiogram with Doppler study was performed which revealed an ejection fraction of 20-25%. Moderate mitral regurgitation noted. I did have a lengthy discussion with the patient and family member regarding the low ejection fraction, we will add an ANKUR inhibitor and Aldactone to her medication regime today continue to diurese the patient with IV Lasix. Objective - Vital Signs Vital signs: Vital Signs Temp 97.8 F 03/16/19 12:00 Pulse 74 03/16/19 12:00 Resp 20 03/16/19 12:00 BP 122/59 03/16/19 12:00 Pulse Ox 96 03/16/19 12:00 Intake & Output 03/15/19 03/16/19 03/16/19 18:59 06:59 18:59 Intake Total 720 340 360 Output Total 250 Balance 720 90 360 Weight 110 kg Intake: Intake, IV Titration 100 Amount cefTRIAXone 1 gm In 100 Sodium Chloride 0.9% 50 ml @ 100 mls/hr IVPB Q24HR [facility] Rx#:[id number] Oral 720 240 360 Output: Urine 250 Other: Voiding Method Toilet Toilet Toilet # Voids 1 2 - Exam PHYSICAL EXAMINATION: GENERAL: 89-year-old female in no acute distress at the time of my examination HEENT: Head is atraumatic, normocephalic. Pupils equal, round. Sclera anicteric. Conjunctiva are clear. Mucous membranes of the mouth are moist. Neck is supple. There is elevated jugular venous pressure. No carotid bruit is heard. HEART EXAMINATION: S1 and S2 irregularly irregular a systolic murmur is heard CHEST EXAMINATION: Reveal rales to bilateral bases ABDOMEN: Soft, nontender. Bowel sounds are heard. No organomegaly noted. EXTREMITIES: 2+ peripheral pulses with trace evidence of peripheral edema and no calf tenderness noted. NEUROLOGIC patient is awake, alert and oriented 3 . - Labs CBC & Chem 7: 03/16/19 06:09 03/16/19 06:09 Labs: Abnormal Lab Results - Last 24 Hours (Table) 03/16/19 Range/Units 06:09 Sodium 125 L (137-145) mmol/L Chloride 89 L (98-107) mmol/L Calcium 8.3 L (8.4-10.2) mg/dL Microbiology - Last 24 Hours (Table) 03/14/19 11:39 Blood Culture - Preliminary Blood No Growth after 48 hours 03/14/19 12:12 Urine Culture - Final Urine,Voided Assessment and Plan Plan: Assessment and plan #1 systolic congestive heart failure acute on chronic #2 new onset atrial fibrillation, persistent #3 pneumonia with acute bronchitis #4 cardiomyopathy Plan We will continue current dose of IV Lasix, we will also add an ANKUR inhibitor and Aldactone to the patient's medication regime. Continue to monitor the intake and output along with daily weights and daily lytes BUN and creatinine. The IV Lasix dose will be increased to daily hourly today. We will also repeat a chest x-ray tomorrow. Once the patient is stable from a heart failure perspective, the plan is for her to be discharged home and returned back for cardiac catheterization as an outpatient. DNP note has been reviewed, I agree with a documented findings and plan of care. Patient was seen and examined.
[2019-03-16] MEDS: MONTELUKAST 10 MG TAB PO SCH (20:55)
[2019-03-17] MEDS: FUROSEMIDE 10 MG/ML 4 ML VIAL IV SCH ×5 (00:08→23:29)
[2019-03-17 06:39] LABS: African American GFR (CKD) >90 (>60 ml/min/1.73 sqM); Anion Gap 7 mmol/L; Blood Urea Nitrogen 15 mg/dL (7-17); Calcium 8.4 mg/dL (8.4-10.2); Carbon Dioxide 33 mmol/L (22-30); Chloride 94 mmol/L (98-107); Glucose 86 mg/dL (74-99); Non-African American GFR(CKD) 82 (>60 ml/min/1.73 sqM); Sodium 134 mmol/L (137-145)
[2019-03-17] MEDS: IPRATROPIUM-ALBUTEROL 3 ML NEB INHALATION SCH ×4 (07:54→18:51)
[2019-03-17] MEDS ORDERED: Potassium Replacement Protocol 1 EACH MISC MISCELLANE PRN (07:58)
--- NOTE | 2019-03-17 08:59 | XR ---
EXAMINATION TYPE: XR chest 2V DATE OF EXAM: 03/17/2019 COMPARISON: 03/15/2019 HISTORY: Shortness of breath. Follow-up for congestive heart failure TECHNIQUE: Frontal and lateral views of the chest are obtained. FINDINGS: Degeneration of the lung bases. Very trace pleural effusion blunts the left costophrenic a ngle. Interstitial prominence remains throughout her upper. Cardiomediastinal silhouette is enlarged as seen on the prior. Prominence of the katya may relate to pulmonary arterial hypertension. No hilar mass seen on the recent CT dated 03/14/2019. IMPRESSION: Improved pleural effusions, now trace on the left and improved aeration of the lung base s. Mild interstitial pulmonary edema remains throughout.
[2019-03-17] MEDS: METOPROLOL TARTRATE 50 MG TAB PO SCH ×2 (09:00→21:16)
[2019-03-17] MEDS: LISINOPRIL 5 MG TAB PO SCH (09:01)
[2019-03-17] MEDS: SPIRONOLACTONE 25 MG TAB PO SCH (09:01)
[2019-03-17] MEDS: POTASSIUM CHLORIDE ER 20 MEQ TAB.ER PO SCH ×5 (09:01→15:51)
[2019-03-17] MEDS: APIXABAN 5 MG TAB PO SCH ×2 (09:01→21:16)
--- NOTE | 2019-03-17 14:24 | P.PN ---
Subjective Progress Note Date: 03/17/19 This is a 78-year-old female with history of stress incontinence, chronic bladder infection x 1 year, RIGHT hip OA and asthma. Patient presents to the emergency room on 03/14/2019 with complaints of increasing shortness of breath and chest tightness over the past 3-4 weeks. Patient states she has been traveling often since January to visit her family. Patient states she went to [place] on for a few weeks in January and then to [place] for a few weeks in February. Patient used to work here at [employer]. Patient has no smoking history. Patient states her weight is up approximately 20 pounds in the past month or so. Patient states she's had increasing shortness of breath, productive hacking cough and fatigue over the past few weeks. Patient has not had a fever at home. Patient also states she has having palpitations at home the past day or 2 and decided to come to the ER. Patient presents with atrial fibrillation with rapid ventricular rate . She was seen in consultation yesterday by Dr. Sean Eng. Patient had been initiated on Eliquis for anticoagulation as well as metoprolol. She was also initiated on IV Lasix and has been overall diuresing well. She does state that her breathing is mildly improved today, continues to have some shortness of breath .Echocardiogram with Doppler study was performed which revealed an ejection fraction of 20-25%. Moderate mitral regurgitation noted. I did have a lengthy discussion with the patient and family member regarding the low ejection fraction, we will add an ANKUR inhibitor and Aldactone to her medication regime today continue to diurese the patient with IV Lasix. 03/17/2019 Patient was seen and examined this morning, she diuresed well over night last night.weight is down significantly today. Sodium 134, potassium 3.0, BUN 15, creatinine 0.7.chest x-ray today does show some improvement as well. She co ntinues to be in atrial fibrillation but her rate is under much better control. Objective - Vital Signs Vital signs: Vital Signs Temp 98.1 F 03/17/19 12:00 Pulse 66 03/17/19 12:00 Resp 18 03/17/19 12:00 BP 126/76 03/17/19 12:00 Pulse Ox 97 03/17/19 12:00 Intake & Output 03/16/19 03/17/19 03/17/19 18:59 06:59 18:59 Intake Total 360 462 Balance 360 462 Weight 104.6 kg Intake: Oral 360 462 Other: Voiding Method Toilet Toilet # Voids 1 - Exam PHYSICAL EXAMINATION: GENERAL: 89-year-old female in no acute distress at the time of my examination HEENT: Head is atraumatic, normocephalic. Pupils equal, round. Sclera an icteric. Conjunctiva are clear. Mucous membranes of the mouth are moist. Neck is supple. There is elevated jugular venous pressure. No carotid bruit is heard. HEART EXAMINATION: S1 and S2 irregularly irregular a systolic murmur is heard CHEST EXAMINATION: Reveal rales to bilateral bases ABDOMEN: Soft, nontender. Bowel sounds are heard. No organomegaly noted. EXTREMITIES: 2+ peripheral pulses with trace evidence of peripheral edema and no calf tenderness noted. NEUROLOGIC patient is awake, alert and oriented 3 . - Labs CBC & Chem 7: 03/16/19 06:09 03/17/19 05:59 Labs: Abnormal Lab Results - Last 24 Hours (Table) 03/17/19 Range/Units 05:59 Sodium 134 L (137-145) mmol/L Potassium 3.0 L (3.5-5.1) mmol/L Chloride 94 L (98-107) mmol/L Carbon Dioxide 33 H (22-30) mmol/L Osmolality 275 L (280-301) mosm/kg Microbiology - Last 24 Hours (Table) 03/14/19 11:39 Blood Culture - Preliminary Blood No Growth after 72 hours Assessment and Plan Plan: Assessment and plan #1 systolic congestive heart failure acute on chronic #2 new onset atrial fibrillation, persistent #3 pneumonia with acute bronchitis #4 cardiomyopathy Plan we will continue current dose of IV Lasix for 24 hours and changed to oral diuretics from tomorrow. Replace potassium. Check lytes BUN and creatinine in the morning. The plan is that the patient be discharged home, cardiac catheterization as an outpatient with subsequent cardioversion down the road. DNP note has been reviewed, I agree with a documented findings and plan of care. Patient was seen and examined.
--- NOTE | 2019-03-17 16:37 | P.PN ---
Subjective Progress Note Date: 03/17/19 Principal diagnosis: A. fib, new onset CHF Patient was seen and examined. No acute events overnight. Patient reports improvement in her breathing since admission. She denies any chest pain, dizziness or palpitations. No nausea or vomiting. No fever or chills. Currently rate controlled with heart rate in the 70-80s on telemetry. Objective - Vital Signs Vital signs: Vital Signs Temp 98.1 F 03/17/19 12:00 Pulse 62 03/17/19 15:41 Resp 18 03/17/19 15:29 BP 126/76 03/17/19 12:00 Pulse Ox 97 03/17/19 15:29 Intake & Output 03/16/19 03/17/19 03/17/19 18:59 06:59 18:59 Intake Total 360 462 Balance 360 462 Weight 104.6 kg Intake: Oral 360 462 Other: Voiding Method Toilet Toilet # Voids 1 - Exam General: [non toxic], [no distress], [appears at stated age] Derm: [warm], [dry] Head: [atraumatic], [normocephalic], [symmetric] Eyes: [EOMI], [no lid lag], [anicteric sclera] Mouth: [no lip lesion], [mucus membranes moist] Cardiovascular: [S1S2 reg], [irregularly irregular], [positive DP pulse bilateral], Lungs: [Decreased breath sounds bilateral], [ronchi at the bases] , [no accessory muscle use] Abdominal: [soft], [ nontender to palpation], [no guarding], [no appreciable organomegaly] Ext: [no gross muscle atrophy], [1+ bilateral lower extremity edema], [no contractures] Neuro: [no focal neuro deficits] Psych: [Alert], [oriented], [appropriate affect] - Labs CBC & Chem 7: 03/16/19 06:09 03/17/19 05:59 Labs: Abnormal Lab Results - Last 24 Hours (Table) 03/17/19 Range/Units 05:59 Sodium 134 L (137-145) mmol/L Potassium 3.0 L (3.5-5.1) mmol/L Chloride 94 L (98-107) mmol/L Carbon Dioxide 33 H (22-30) mmol/L Osmolality 275 L (280-301) mosm/kg Microbiology - Last 24 Hours (Table) 03/14/19 11:39 Blood Culture - Preliminary Blood No Growth after 72 hours Assessment and Plan Assessment: Newly diagnosed atrial fibrillation Acute systolic CHF exacerbation, new diagnosis Hypokalemia Hyponatremia Abnormal UA Morbid obesity Patient is currently rate controlled with heart rate in the 80-70s. She is on Eliquis for anticoagulation and metoprolol for rate control. Case was discussed with cardiology, plans on cardiac catheterization in the outpatient setting. Echocardiogram showing EF 20-25%. Patient has been started on ANKUR inhibitor and beta juan c. Aldactone has been added as well. She is currently being diuresed with Lasix 40 mg IV twice a day with plans on transitioning to oral tomorrow. Strict intake and output intake has been ordered along with daily weights. Cardiology is on board. Patients potassium was 3 this morning. This has been replaced by protocol. We will re-check BMP tomorrow morning. Patient's sodium has worsened from 131-125-134. She is also on IV diuresis. Urine electrolytes and osmolality shows hypotonic hyponatremia. She would benefit from fluid restriction. I would discontinue azithromycin as I do not think that patient has pneumonia. She has completed 3 days of Rocephin for UTI. Blood cultures and urine culture has been negative thus far. [Discussed with cardiology, continue IV diuresis. Plans for outpatient cardiac catheterization. She is pending clinical improvement. Likely DC tomorrow.]
[2019-03-17] MEDS: MONTELUKAST 10 MG TAB PO SCH (21:16)
[2019-03-18 04:01] VITALS: TEMP 97.7
[2019-03-18] MEDS: IPRATROPIUM-ALBUTEROL 3 ML NEB INHALATION SCH ×2 (08:04→11:19)
[2019-03-18 08:35] LABS: Calcium 9.1 mg/dL (8.4-10.2); Potassium 3.9 mmol/L (3.5-5.1)
[2019-03-18] MEDS: FUROSEMIDE 10 MG/ML 4 ML VIAL IV SCH (08:54)
[2019-03-18] MEDS: METOPROLOL TARTRATE 50 MG TAB PO SCH (08:55)
[2019-03-18] MEDS: APIXABAN 5 MG TAB PO SCH (08:55)
[2019-03-18] MEDS: SPIRONOLACTONE 25 MG TAB PO SCH (08:55)
[2019-03-18] MEDS: LISINOPRIL 5 MG TAB PO SCH (08:55)
[2019-03-18 11:34] VITALS: BP 123/61; PULSE 52; RESP 18
--- NOTE | 2019-03-18 11:58 | P.DS ---
Providers Date of admission: 03/16/19 08:31 Expected date of discharge: 03/18/19 Attending physician: Giuliana Larios DO Consults: 03/14/19 12:00 Consult Physician Urgent Consulting Provider: Gerald Eng Consult Reason/Comments: afib rvr Do you want consulting provider notified?: Yes Primary care physician: Physician Nonstaff Hospital Course: The patient is a 78-year-old female, never smoker with a PMH of stress incontinence and osteoarthritis who presented to the ED with complaints of gradually worsening shortness of breath. The patient reported that her breathing has been giving her trouble for the previous 3-4 weeks, but had really worsened since she flew back from [place] the day prior. She reported that during her trip, she gradually became more dyspneic and she had to take a wheelchair to get around the airport. She also reported some chest congestion along with a nonproductive cough ongoing for the past 1-2 weeks. The patient also stated that she had multiple UTIs in the past 1 year and has been on 3 different antibiotics for this. She denied dysuria, hematuria, increased frequency, or urgency. She lives primarily in [place], though travels quite a bit to [place] in [place] since her children live in the states. She denied leg pain, chest pain, nausea, vomiting, dizziness, or diaphoresis. She also denied fever or chills. She underwent an extensive evaluation in the emergency room with an EKG that revealed A. fib with RVR at 1 35 bpm, chest x-ray that revealed a right lower lobe infiltrate suspicious for pneumonia along with a left-sided pleural effusion. Her d-dimer was elevated at 1.3 with a subsequent chest CTA which revealed no PE and showed hyperinflation along with bilateral pleural effusions. Laboratory evaluation revealed a troponin of less than 0.012, alk phos 139, AST 86, ALT 117, BNP 2420, WBC count 8.7, hemoglobin 13.3, platelets 274, sodium 1:30, potassium 4.4, BUN 17, creatinine 0.63, and a glucose of 138. The patient was admitted for further management of newly diagnosed Afib with RVR. Cardiology evaluated the patient and recommended discontinuing the heparin infusion and start the patient on Eliquis orally. The patient's Cardizem infusion was also discontinued in lieu of metoprolol. Echocardiogram came back with EF 20-25%. Patient was started on lisinopril and metoprolol. Aldactone was added. She was initially diuresed with Lasix 40 mg IV twice a day which were transitioned to oral on discharge. Her hypokalemia was replaced and her potassium was within normal limits on discharge. Patient initially had a sodium of 131 with that went down to 125. Urine electrolytes indicated hypotonic hyponatremia. Her sodium improved and was within normal limits on discharge. Patient was seen and examined. No acute events overnight. Patient with no complaints. She denies any chest pain, shortness breath or palpitations. No nausea or vomiting. No fever or chills. General: [non toxic], [no distress], [appears at stated age] Derm: [warm], [dry] Head: [atraumatic], [normocephalic], [symmetric] Eyes: [EOMI], [no lid lag], [anicteric sclera] Mouth: [no lip lesion], [mucus membranes moist] Cardiovascular: [S1S2 reg], [irregularly irregular], [positive DP pulse bilateral], Lungs: [Decreased breath sounds bilateral], [ronchi at the bases] , [no accessory muscle use] Abdominal: [soft], [ nontender to palpation], [no guarding], [no appreciable organomegaly] Ext: [no gross muscle atrophy], [1+ bilateral lower extremity edema], [no contractures] Neuro: [no focal neuro deficits] Psych: [Alert], [oriented], [appropriate affect] Newly diagnosed atrial fibrillation Acute systolic CHF exacerbation, new diagnosis Hypokalemia Hyponatremia Abnormal UA Morbid obesity Patient is currently rate controlled with heart rate in the 80-70s. She is on Eliquis for anticoagulation and metoprolol for rate control. Case was discussed with cardiology, plans on cardiac catheterization in the outpatient setting. Echocardiogram showing EF 20-25%. Patient has been started on ANKUR inhibitor and beta juan c. Aldactone has been added as well. She is currently being diuresed with Lasix 40 mg twice a day which has been changed from IV to oral. Strict intake and output intake has been ordered along with daily weights. Cardiology is on board. Patients potassium was within normal limits this morning. Patient's sodium has worsened from [phone]-within normal limits. She is also on IV diuresis. Urine electrolytes and osmolality shows hypotonic hyponatremia. Nothing further to do. I would discontinue azithromycin as I do not think that patient has pneumonia. She has completed 3 days of Rocephin for UTI. Blood cultures and urine culture has been negative thus far. [ Plans for outpatient cardiac catheterization. We will get the dietitian to see the patient regarding low salt and fluid restriction. Discussed with RN, 6 minute walk test pending. DC today. Follow-up cardiology outpatient for cardiac catheterization] Pertinent Studies: Chest x-ray, chest CTA, echocardiogram Patient Condition at Discharge: Stable Plan - Discharge Summary Discharge Rx Participant: Yes New Discharge Prescriptions: New Spironolactone [Aldactone] 25 mg PO DAILY #30 tab Apixaban [Eliquis] 5 mg PO BID #60 tab Furosemide [Lasix] 40 mg PO BID@0900,1600 #60 tab Metoprolol Tartrate [Lopressor] 50 mg PO BID #60 tab Lisinopril [Zestril] 10 mg PO DAILY #30 tab Continue Naproxen Sodium [Aleve] 440 mg PO DAILY PRN PRN Reason: Pain Montelukast [Singulair] 10 mg PO HS Discharge Medication List Montelukast [Singulair] 10 mg PO HS 03/14/19 [History] Naproxen Sodium [Aleve] 440 mg PO DAILY PRN 03/14/19 [History] Apixaban [Eliquis] 5 mg PO BID #60 tab 03/18/19 [Rx] Furosemide [Lasix] 40 mg PO BID@0900,1600 #60 tab 03/18/19 [Rx] Lisinopril [Zestril] 10 mg PO DAILY #30 tab 03/18/19 [Rx] Metoprolol Tartrate [Lopressor] 50 mg PO BID #60 tab 03/18/19 [Rx] Spironolactone [Aldactone] 25 mg PO DAILY #30 tab 03/18/19 [Rx] Follow up Appointment(s)/Referral(s): Gerald Eng MD [STAFF PHYSICIAN] - 03/25/19 1:30 am Nonstaff,Physician [Primary Care Provider] - 1-2 days Activity/Diet/Wound Care/Special Instructions: Diet: Cardiac Follow-up PCP within 3 days of discharge. Follow-up cardiology within 1 week of discharge. Please take all medications as advised. Come back to the 911 for worsening chest pain, shortness of breath, palpitations or dizziness. Discharge Disposition: HOME SELF-CARE
--- NOTE | 2019-03-18 13:02 | PN ---
PROGRESS NOTE Mrs. Alonzo has what seems to be a cardiomyopathy with heart failure and atrial fibrillation. Her rate is much better controlled. She is feeling better. Weight is down. Vitals are stable. JVD 1 cm. No carotid bruit. S1, S2 heard normally, a short systolic murmur noted in the left lower sternal border. Lungs are clear. Abdomen and lower extremity exam are unchanged. The edema has almost completely resolved. Her blood pressure is good. I will continue the same medications, increase lisinopril. Discharge today. Will see her in the office in 7 to 10 days. She will require coronary angiography to rule out obstructive CAD and also electrical cardioversion if she remains in atrial fibrillation. I explained this to the patient at length. MMODL / IJN: [id number] /
[2019-03-18 14:21] VITALS: BMI 36.8
[2019-03-18] MEDS ORDERED: FUROSEMIDE 40 MG TAB PO SCH (16:00)
[2019-03-19] MEDS ORDERED: LISINOPRIL 10 MG TAB PO SCH (09:00)
== END 2019-03-18 15:35 | disposition home or self-care (01) | DRG 292 ==
LOC: EC 08:18 → 3SCARD 12:05 → OBSVTOIN 03-16 08:31
PROVIDERS: ADMIT Internal Medicine; ATTEND Internal Medicine
DX: I50.23 Acute on chronic systolic (congestive) heart failure (principal); E87.1 Hypo-osmolality and hyponatremia; I48.19 Other persistent atrial fibrillation; I42.9 Cardiomyopathy, unspecified; N39.0 Urinary tract infection, site not specified; Z66 Do not resuscitate; J44.9 Chronic obstructive pulmonary disease, unspecified; E87.6 Hypokalemia; I34.0 Nonrheumatic mitral (valve) insufficiency; M16.11 Unilateral primary osteoarthritis, right hip; N39.3 Stress incontinence (female) (male); E66.01 Morbid (severe) obesity due to excess calories; Z68.36 Body mass index [BMI] 36.0-36.9, adult; Z79.899 Other long term (current) drug therapy; Z87.440 Personal history of urinary (tract) infections; Z71.3 Dietary counseling and surveillance
CPT/HCPCS: 36415; 71045; 71046; 71275; 80048; 80053; 81001; 83735; 83880; 83930; 83935; 84300; 84484; 85025; 85027; 85379; 85610; 85730; 87040; 87086; 93005; 93306; 94640; 94760; 96365; 96366; 96368; 96375; 96376; 99291

== ENCOUNTER → 2019-03-24 | Outpatient (CLI) | payer MEDICARE, OTHER ==
[2019-03-24 11:39] LABS: HCT 50.1 % (34.0-46.0); MCH 27.1 pg (25.0-35.0); MCHC 31.5 g/dL (31.0-37.0); MCV 85.8 fL (80.0-100.0); Mean Platelet Volume 6.8; Platelet Count 336 k/uL (150-450); RBC 5.84 m/uL (3.80-5.40); RDW 13.4 % (11.5-15.5); WBC 9.6 k/uL (3.8-10.6)
[2019-03-24 11:44] LABS: Potassium 4.7 mmol/L (3.5-5.1)
[2019-03-24 11:46] LABS: HGB 15.8 gm/dL (11.4-16.0)
== END | disposition home or self-care (01) ==
LOC: LABPAT 10:57
PROVIDERS: ATTEND Internal Medicine Interventional Cardiology
DX: Z01.812 Encounter for preprocedural laboratory examination (principal); I50.22 Chronic systolic (congestive) heart failure
CPT/HCPCS: 36415; 80051; 82565; 84520; 85027

== ENCOUNTER 2019-03-27 10:58 | Day surgery (SDC) | payer MEDICARE, OTHER ==
[2019-03-24 12:31] VITALS: BMI 34.5
[~2019-03-27 10:58] MED LIST: ALPRAZolam 0.25 MG TAB PO PRN; ALPRAZolam 0.5 MG TAB PO PRN; ASPIRIN 325 MG TAB PO ONE; ATORVASTATIN 80 MG TAB PO ONE; NITROGLYCERIN SL TABS 0.4 MG TAB SUBLINGUAL PRN; SODIUM CHLORIDE 0.9% 1,000 ML in EMPTY BAG 1 BAG IV ONE
[2019-03-27] MEDS ORDERED: SODIUM CHLORIDE 0.9% 1,000 ML IV ONE (12:00)
[2019-03-27 12:11] VITALS: RESP 16; TEMP 97.8
[2019-03-27] MEDS ORDERED: LIDOCAINE 1% INJ 10MG/ML (20 ML MDV) ONE (13:48)
[2019-03-27] MEDS ORDERED: VERAPAMIL 2.5 MG/ML 2 ML AMP ONE (13:48)
[2019-03-27] MEDS ORDERED: HEPARIN SODIUM 1,000 UN/ML (10ML VL) ONE (13:59)
[2019-03-27] MEDS ORDERED: MIDAZOLAM 2 MG/2 ML VIAL IV ONE (14:00)
[2019-03-27] MEDS ORDERED: LIDOCAINE 1% INJ 10MG/ML (20 ML MDV) SQ ONE (14:00)
[2019-03-27] MEDS: VERAPAMIL SYRINGE (5 MG/10 ML) INTRAARTER ONE ×2 (14:02→14:14)
[2019-03-27] MEDS ORDERED: IOPAMIDOL-370 100ML BTL INJ ONE (14:15)
[2019-03-27] MEDS ORDERED: SODIUM CHLORIDE 0.9% 1,000 ML IV SCH (14:24)
--- NOTE | 2019-03-27 14:51 | CC ---
CARDIAC CATHETERIZATION REPORT DATE OF SERVICE: 03/27/2019 PROCEDURE: Left heart catheterization and coronary angiography. PERFORMED BY: Dr. Canelo Eng. Moderate conscious sedation time was 80 minutes. Patient was administered Versed. Oxygen saturation, hemodynamics and EKG were monitored closely. CLINICAL INFORMATION: Mrs. Stephanie Alonzo is a 78-year-old lady who was recently hospitalized with atrial fibribllation, rapid rate and cardiomyopathy, ejection fraction of about 25%. After stabilizing her, she was advised coronary angiography to rule out obstructive CAD. Her atrial fibrillation rate was controlled and she has been well anticoagulated. The rationale for the procedure, risks, benefits, options were explained to the patient and her family, specifically her son. Patient understood all details and wished to proceed. PROCEDURE NOTE: Under local anesthesia and strict aseptic precautions, a 6-Eritrean introducer was placed in the right radial artery. Using JL3.5 and JR4.0 catheters, I performed coronary angiography and the same right catheter was used to check LV pressures. LV gram was not performed. The sheath was taken out and TR band applied as per protocol with saturation of the fingers of the right hand of 94%. Patient tolerated procedure well without complications. She received 3000 units of heparin intravenously. CARDIAC CATHETERIZATION FINDINGS: The left end-diastolic pressure was about 8 mmHg. No gradient across the aortic valve. CORONARY ANGIOGRAPHY FINDINGS: RIGHT CORONARY ARTERY: Large dominant vessel. No significant disease. Bifurcates into a large PLV and large PDA which is tortuous, has minor irregularities. No significant disease noted in the RCA which is a very dominant vessel. LEFT MAIN CORONARY ARTERY: This is a long vessel. No significant disease and this vessel bifurcates into LAD and circumflex. Left main itself is long, disease-free and bifurcates into LAD and circumflex. LEFT ANTERIOR DESCENDING CORONARY ARTERY: Good caliber vessel, extends along the anterior wall, gives off a very high diagonal branch which is large in caliber and distribution and there is a good second diagonal, then it runs all the way to the apex supplying a sizable amount of myocardium. LAD has minor irregularities throughout, but no significant disease. The first large diagonal and second large diagonal are free of significant disease. LEFT POSTERIOR CIRCUMFLEX CORONARY ARTERY: Technically, a nondominant vessel that gives off a single obtuse marginal that runs laterally and another vessel with an AV groove. No significant disease in the nondominant circumflex system. There is a small vessel that seems to come off very high and it may almost looks like a ramus, but small in caliber and distribution, has no significant disease. Left ventriculogram was not performed. FINAL IMPRESSION: This patient has normal filling pressures. No gradient across aortic valve. A right- dominant system. Mild irregularities but no significant obstructive CAD. LAD is a large caliber, disease-free. RCA is a very large dominant disease-free vessel. Circumflex is nondominant and has a good-sized obtuse marginal, has no significant disease. RECOMMENDATION: Findings were discussed with the patient and her son. I am recommending continued medical therapy with risk factor modification. After a few more weeks, we will do electrical cardioversion to convert her to sinus rhythm. She has nonischemic cardiomyopathy. MMODL / IJN: [id number] /
[2019-03-27 18:28] VITALS: BP 123/59; PULSE 77
== END 2019-03-27 18:31 | disposition home or self-care (01) ==
LOC: CATHCVL 10:58
PROVIDERS: ATTEND Internal Medicine Interventional Cardiology
DX: I42.9 Cardiomyopathy, unspecified (principal); I48.91 Unspecified atrial fibrillation; I11.0 Hypertensive heart disease with heart failure; I50.23 Acute on chronic systolic (congestive) heart failure; Z79.01 Long term (current) use of anticoagulants; Z79.899 Other long term (current) drug therapy
CPT/HCPCS: 93458; C1769; C1894; J2250; J2001; J1644; Q9967

== ENCOUNTER → 2019-04-16 | Day surgery (SDC) | payer MEDICARE, OTHER ==
[2019-04-15 08:51] VITALS: BMI 34.5
[~2019-04-16] MED LIST changes: -ALPRAZolam 0.25 MG TAB PO PRN; -ALPRAZolam 0.5 MG TAB PO PRN; -ASPIRIN 325 MG TAB PO ONE; -ATORVASTATIN 80 MG TAB PO ONE; -NITROGLYCERIN SL TABS 0.4 MG TAB SUBLINGUAL PRN; +PROPOFOL 10 MG/ML 20 ML VIAL IV ONE; +SODIUM CHLORIDE 0.9% 1,000 ML IV SCH; -SODIUM CHLORIDE 0.9% 1,000 ML in EMPTY BAG 1 BAG IV ONE
[2019-04-16 06:49] VITALS: TEMP 97.8
[2019-04-16 07:45] VITALS: RESP 16
--- NOTE | 2019-04-16 07:45 | CE ---
CARDIAC ELECTROPHYSIOLOGY REPORT ELECTRICAL CARDIOVERSION REPORT: DATE OF SERVICE: 04/16/2019. PROCEDURE: Electrical cardioversion. INDICATION: Persistent atrial fibrillation with cardiomyopathy and systolic heart failure. CLINICAL INFORMATION: Mrs. Chanelle Alonzo is a 78-year-old lady with a recent onset atrial fibrillation that is persistent with congestive heart failure, systolic with ejection fraction in the 20% to 25% range. She does not have any significant obstructive CAD. After adequate anticoagulation and rate control, she was brought in for electrical cardioversion. Risks, benefits, options, rationale were explained to the patient and her son. PROCEDURE NOTE: Under the influence of ultra short-acting intravenous anesthetic agent with the attendance of the anesthesiologist, a single initial 200 joule shock was delivered. Patient had some 3 to 4 sinus beats, but then went back into atrial fib with moderate rate. A second shock of 250 joules was delivered with anterior and posterior patches, but patient did not convert to sinus rhythm. This is therefore an unsuccessful electrical cardioversion. The patient will be treated with rate control and we will bring her back after she is on amiodarone for 3 weeks or so. Results were discussed with the patient and family. Patient was neurologically intact, hemodynamically stable. MMODL / IJN: [id number] /
[2019-04-16 08:51] VITALS: BP 126/62; PULSE 92
== END ==
LOC: CATHCVL 06:12
PROVIDERS: ATTEND Internal Medicine Interventional Cardiology
DX: I48.19 Other persistent atrial fibrillation (principal); I25.10 Atherosclerotic heart disease of native coronary artery without angina pectoris; I11.0 Hypertensive heart disease with heart failure; I50.23 Acute on chronic systolic (congestive) heart failure; Z79.01 Long term (current) use of anticoagulants; Z79.899 Other long term (current) drug therapy
CPT/HCPCS: 92960; J2704

== ENCOUNTER → 2019-05-11 | Outpatient (CLI) | payer MEDICARE, OTHER ==
[2019-05-11 11:16] LABS: HCT 42.6 % (34.0-46.0); HGB 14.4 gm/dL (11.4-16.0); MCH 28.3 pg (25.0-35.0); MCHC 33.7 g/dL (31.0-37.0); MCV 83.8 fL (80.0-100.0); Mean Platelet Volume 6.4; Platelet Count 289 k/uL (150-450); RBC 5.08 m/uL (3.80-5.40); RDW 14.9 % (11.5-15.5); WBC 8.9 k/uL (3.8-10.6)
[2019-05-11 11:29] LABS: Potassium 4.4 mmol/L (3.5-5.1)
== END | disposition home or self-care (01) ==
LOC: LABPAT 10:01
PROVIDERS: ATTEND Internal Medicine Interventional Cardiology
DX: Z01.812 Encounter for preprocedural laboratory examination (principal); I42.8 Other cardiomyopathies; I50.23 Acute on chronic systolic (congestive) heart failure
CPT/HCPCS: 36415; 80051; 82565; 82947; 84520; 85027

== ENCOUNTER → 2019-05-12 | Day surgery (SDC) | payer MEDICARE, OTHER ==
[2019-05-11 11:31] VITALS: BMI 34.2
[2019-05-12 11:03] VITALS: TEMP 98.1
[2019-05-12 11:37] VITALS: RESP 16
--- NOTE | 2019-05-12 11:47 | CE ---
CARDIAC ELECTROPHYSIOLOGY REPORT DATE OF SERVICE: 05/12/2019. PROCEDURE: Electrical cardioversion. INDICATION: Persistent atrial fibrillation in spite of pharmacological therapy. CLINICAL INFORMATION: Mrs. Stephanie Alonzo is a 78-year-old lady with a history of nonischemic cardiomyopathy, new onset atrial fibrillation, who was brought in a few weeks ago for electrical cardioversion after achieving rate control and adequate anticoagulation. However electrical cardioversion was unsuccessful and since then, she was placed on amiodarone and after loading her for 2 to 3 weeks, she was brought in for the procedure again. The risks, benefits, options and rationale were explained. PROCEDURE NOTE: Under the influence of ultra short-acting intravenous anesthetic agent with the attendance of the anesthesiologist, Dr. Grant, a single 250-joule shock was delivered to the chest with anterior and posterior patches. Patient converted to sinus rhythm and had sinus bradycardia, remained hemodynamically stable and neurologically intact. This was a successful electrical cardioversion. I will decrease the amiodarone to 200 mg daily and metoprolol tartrate will be reduced to 25 mg daily and we will see her in about a week in the office. Results were discussed with the patient and her friend and a phone call will be made to her children. MMODL / IJN: [id number] /
[2019-05-12 14:19] VITALS: BP 111/57; PULSE 56
== END ==
LOC: CATHCVL 10:32
PROVIDERS: ATTEND Internal Medicine Interventional Cardiology
DX: I48.19 Other persistent atrial fibrillation (principal); I42.8 Other cardiomyopathies; I11.0 Hypertensive heart disease with heart failure; I50.23 Acute on chronic systolic (congestive) heart failure; M19.90 Unspecified osteoarthritis, unspecified site; N30.20 Other chronic cystitis without hematuria; R32 Unspecified urinary incontinence; I25.10 Atherosclerotic heart disease of native coronary artery without angina pectoris; E78.5 Hyperlipidemia, unspecified; E66.9 Obesity, unspecified; Z68.34 Body mass index [BMI] 34.0-34.9, adult; Z79.899 Other long term (current) drug therapy; Z79.01 Long term (current) use of anticoagulants; Z79.1 Long term (current) use of non-steroidal anti-inflammatories (NSAID); Z90.89 Acquired absence of other organs; Z90.710 Acquired absence of both cervix and uterus; Z98.890 Other specified postprocedural states
CPT/HCPCS: 92960; J2704

== ENCOUNTER → 2019-09-10 | Outpatient (CLI) | payer MEDICARE, OTHER | END | disposition home or self-care (01) | LOC: RADMAMWWP 12:16 | PROVIDERS: ATTEND Family Medicine | DX: Z12.31 Encounter for screening mammogram for malignant neoplasm of breast (principal) | CPT/HCPCS: 77063; 77067 ==

== ENCOUNTER → 2020-10-04 | Outpatient (CLI) | payer MEDICARE, OTHER ==
--- NOTE | 2020-10-10 12:20 | MM ---
Reason for exam: screening (asymptomatic). Last mammogram was performed 1 year and 1 month ago. History: Patient is postmenopausal. Took estrogen for 9 years beginning at age 48. Took progesterone for 9 years beginning at age 48. Physical Findings: A clinical breast exam by your physician is recommended on an annual basis and results should be correlated with mammographic findings. MG 3D Screening Mammo W/Cad Bilateral CC and MLO view(s) were taken. Prior study comparison: September 10, 2019, bilateral MG 3d screening mammo w/cad. May 09, 2018, mammogram. There are scattered fibroglandular densities. No significant changes when compared with prior studies. ASSESSMENT: Benign, BI-RAD 2 RECOMMENDATION: Routine screening mammogram of both breasts in 1 year.
== END | disposition home or self-care (01) ==
LOC: RADMAMWWP 11:00
PROVIDERS: ATTEND Family Medicine
DX: Z12.31 Encounter for screening mammogram for malignant neoplasm of breast (principal); Z78.0 Asymptomatic menopausal state; Z79.818 Long term (current) use of other agents affecting estrogen receptors and estrogen levels
CPT/HCPCS: 77063; 77067

== ENCOUNTER → 2020-12-15 | Outpatient (CLI) | payer MEDICARE, OTHER ==
[2020-12-15 10:55] LABS: HCT 41.6 % (34.0-46.0); HGB 13.8 gm/dL (11.4-16.0); MCH 28.6 pg (25.0-35.0); MCHC 33.2 g/dL (31.0-37.0); MCV 86.2 fL (80.0-100.0); Mean Platelet Volume 6.9; Platelet Count 310 k/uL (150-450); RBC 4.83 m/uL (3.80-5.40); RDW 13.6 % (11.5-15.5); WBC 9.7 k/uL (3.8-10.6)
[2020-12-15 11:08] LABS: Calcium 9.6 mg/dL (8.4-10.2); Potassium 4.4 mmol/L (3.5-5.1); Total Bilirubin 0.6 mg/dL (0.2-1.3); Total Protein 6.7 g/dL (6.3-8.2)
[2020-12-15 11:27] LABS: INR 0.9 (<1.2); Partial Thromboplastin Time 22.1 sec (22.0-30.0); Prothrombin Time 9.9 sec (9.0-12.0)
[2020-12-15 12:09] LABS: Appearance,Urine Cloudy (Clear); Bacteria,Urine Occasional /hpf; Bilirubin,Urine Negative (Negative); Blood,Urine Negative (Negative); Color,Urine Yellow; Glucose,Urine (UA) Negative (Negative); Ketones,Urine Negative (Negative); Leukocyte Esterase,Urine Large (Negative); Mucus,Urine Rare /hpf; Nitrite,Urine Negative (Negative); Protein,Urine Negative (Negative); RBC,Urine 4 /hpf (0-5); Specific Gravity,Urine 1.007 (1.001-1.035); Squamous Epithelial Cell,Urine 1 /hpf (0-4); Urobilinogen,Urine <2.0 mg/dL (<2.0); WBC,Urine 123 /hpf (0-5)
== END | disposition home or self-care (01) ==
LOC: LABPAT 09:37
PROVIDERS: ATTEND Orthopaedic Surgery
DX: Z01.812 Encounter for preprocedural laboratory examination (principal)
CPT/HCPCS: 36415; 80053; 81001; 85027; 85610; 85730; 87070

== ENCOUNTER 2020-12-20 09:32 | Day surgery (SDC) | payer MEDICARE, OTHER ==
[2020-12-16 18:29] VITALS: BMI 35.2
[~2020-12-20 09:32] MED LIST changes: +ACETAMINOPHEN TAB 500 MG TAB PO PRN; +GABAPENTIN 300 MG CAP PO PRN; +HYDROmorphone 0.5 MG/0.5 ML SYRINGE IVP PRN; +LIDOCAINE 1% (10MG/ML) FOR IV START INTRADERMA PRN; +MELOXICAM 7.5 MG TAB PO PRN; +ONDANSETRON 4 MG/2 ML VIAL IVP ONE; -PROPOFOL 10 MG/ML 20 ML VIAL IV ONE; -SODIUM CHLORIDE 0.9% 1,000 ML IV SCH; +TRANEXAMIC ACID 1,000 MG in SODIUM CHLORIDE 0.9% 100 ML IVPB PRN
[2020-12-20] MEDS: LACTATED RINGERS 1,000 ML IV SCH (09:54)
[2020-12-20] MEDS ORDERED: ONDANSETRON 4 MG/2 ML VIAL IVP PRN (10:45)
[2020-12-20] MEDS ORDERED: NALOXONE 0.4 MG/ML 1 ML VIAL IV PRN (10:45)
[2020-12-20] MEDS ORDERED: HYDROmorphone 0.5 MG/0.5 ML SYRINGE IVP PRN ×2 (10:45)
[2020-12-20] MEDS ORDERED: HYDROmorphone 0.2 MG/1 ML SYRINGE IVP PRN (10:45)
[2020-12-20] MEDS ORDERED: HYDROcodone/APAP 7.5-325MG 1 EACH TAB PO PRN ×2 (10:47)
[2020-12-20] MEDS ORDERED: KETAMINE 10 MG/ML 20 ML VIAL ONE (10:59)
[2020-12-20] MEDS ORDERED: HYDROmorphone (PF) 1 MG/ML ONE (10:59)
[2020-12-20] MEDS ORDERED: TRANEXAMIC ACID 1,000 MG/10 ML VIAL ONE (10:59)
[2020-12-20] MEDS ORDERED: SODIUM CHLORIDE 0.9% IRRIG 1,000 ML BTL IRRIGATION ONE (10:59)
[2020-12-20] MEDS ORDERED: fentaNYL (PF) 50 MCG/ML 2 ML AMP ONE (10:59)
[2020-12-20] MEDS ORDERED: HEPARIN SODIUM,PORCINE 10,000 UNIT/ML 1 ML VIAL ONE (10:59)
[2020-12-20] MEDS ORDERED: LIDOCAINE 1% INJ 10MG/ML (20 ML MDV) ONE (10:59)
[2020-12-20] MEDS ORDERED: SUCCINYLCHOLINE CHLORIDE 100 MG/5 ML SYR IV ONE (10:59)
[2020-12-20] MEDS ORDERED: NEOSTIGMINE 1 MG/ML 10 ML VIAL ONE (10:59)
[2020-12-20] MEDS ORDERED: ROCURONIUM 10 MG/ML (5 ML VIAL) IV ONE (10:59)
[2020-12-20] MEDS ORDERED: GLYCOPYRROLATE 0.2 MG/ML 2 ML VIAL ONE (10:59)
[2020-12-20] MEDS ORDERED: SODIUM CHLORIDE 0.9% 100 ML BAG ONE (10:59)
[2020-12-20] MEDS ORDERED: PROPOFOL 10 MG/ML 20 ML VIAL IV ONE (10:59)
[2020-12-20] MEDS ORDERED: ETOMIDATE 2 MG/ML 10 ML VIAL ONE (10:59)
[2020-12-20] MEDS: ROPIVACAINE 246.25 MG, EPINEPHrine 0.5 MG, KETOROLAC 30 MG, cloNIDine HCL/PF 80 MCG, WA... MISCELLANE PRN ×10 (11:35→12:18)
[2020-12-20] MEDS ORDERED: ceFAZolin 1,000 MG in SODIUM CHLORIDE 0.9% 1,000 ML IRRIGATION ONE (11:35)
--- NOTE | 2020-12-20 11:45 | P.ANPRN ---
Procedure Note - Anesthesia - Nerve Block Performed Right Interscalene Single Time Out Performed: Yes (11:20) Date of Procedure: 12/20/20 Procedure Start Time: Procedure Stop Time: Location of Patient: PreOp Indication: Acute Post-Operative Pain, Dx/Pain Location (Right Shoulder), Requested by Surgeon Specifically requested for management of pain by : Ascencion Arreola Sedation Type: Sedate with meaningful contact maintained Preparation: Sterile Prep Position: Supine Needle Types: Facet Needle Gauge: 21 Ultrasound used to visualize needle placement: Yes Ultrasound used to observe medication spread: Yes Injectate: 0.5% Ropivacaine (see comment for volume) (23cc of Ropivicaine 0.375%) Blood Aspirated: No Pain Paresthesia on Injection Noted: No Resistance on Injection: Normal Image Stored and Saved: Yes Events: Uneventful and Well Tolerated
--- NOTE | 2020-12-20 12:29 | P.OP ---
Date of Procedure: 12/20/20 Preoperative Diagnosis: Severe osteoarthritis right hip Postoperative Diagnosis: Severe osteoarthritis right hip Procedure(s) Performed: Right total hip arthroplasty with a direct anterior approach Implants: [employer] Polarstem standard size 6 [employer] R3, 3 hole hemispherical acetabular shell, 52 mm [employer] Reflection 6.5 mm cancellus screw, 20 mm, 25 mm [employer] R3, XLPE 20 acetabular liner [employer] Oxinium femoral head 36 m, +0 All components were press-fit. The articulation is Oxinium on polyethylene. Anesthesia: GETA Surgeon: Alejandro Nugent Risk Management Internship #1: Janae Ward Estimated Blood Loss (ml): 200 (58 mL returned with Cell Saver) Pathology: other (Femoral head) Condition: stable Disposition: PACU Indications for Procedure: After failure of conservative treatment we discussed the surgical and nonsurgical treatment options at length. Patient wishes to proceed with a total hip arthroplasty with a direct anterior approach. Complications specific to this procedure were discussed at length, including but not limited to infection, leg length discrepancy, dislocation, nerve injury, and fracture. Covid-19 was also discussed at length with the patient, and they are aware of the current policies and procedures. The patient was given the option of delaying surgery, but they elect to proceed knowing these risks. Patient is aware of all these complications and informed consent was obtained Operative Findings: The operative findings are consistent with severe osteoarthritis of the right hip Description of Procedure: Patient was seen and evaluated in the preoperative area and the consent was reviewed. The operative site was marked with a skin marker. The patient was then brought to the operating room and given preoperative antibiotics intravenously. 1 g of Tranexamic acid was also given intravenously. A general anesthetic was administered by the anesthesia department. The patient was then placed on the [place] table with the bony prominences well-padded. The hip area was then prepped with a ChloraPrep solution and draped in the usual sterile fashion. A universal timeout was then performed, which confirmed the patient's name, surgical site, ALLERGIES, and procedure being performed on the consent. Next the incision site was located at 1 cm distal and 2 cm lateral to the anterior superior iliac spine. The skin and subcutaneous tissues were sharply incised. Incision was carefully dissected down to the fascia overlying the tensor fascia demar muscle. This fascia was then incised in line with the incision. Care was taken to stay laterally in order to avoid injuring the lateral femoral cutaneous nerve. Next, using blunt finger dissection, the tensor fascia demar muscle was dissected off its investing fascia. The muscle was then carefully retracted laterally with a cobra retractor over the lateral neck of the femur. Next, the circumflex vessels were identified and cauterized using the AquaMantis device. The anterior hip capsule was then exposed. The capsule was then opened and an inverted T fashion. Cobra retractors were then placed intracapsularly. The retractors were maintained intracapsular throughout the procedure. The proximal femur was then visualized. A small amount of traction was placed on the leg. The femoral neck was then osteotomized appropriate level above the lesser trochanter. A small wedge of bone was then removed from the remaining femoral head. Next, using a corkscrew the femoral head was removed from the acetabulum. On gross visual inspection, the femoral head had complete loss of articular cartilage and multiple periarticular osteophytes. The femoral head was then measured. Attention was then turned to the acetabulum. The acetabulum was exposed and any remaining labrum was excised. Sequential reaming of the acetabulum was performed using fluoroscopic guidance until there was a good bed of bleeding cancellus bone. When the appropriate size was reached, a trial was then placed. The position and fit of the trial was checked with fluoroscopy. The trial was then removed. Then, using fluoroscopic guidance, the final implant was impacted at 20 of anteversion and 40 of abduction, and fully seated in the acetabulum. 2 screws were then placed in the acetabulum. Again fluoroscopy was used to check position of the screws. Next, the liner was then impacted, with a 20 elevated liner located in the anterior superior quadrant. Component locking was confirmed. Attention was then directed to the femur. With the aid of the [place] table, the femur was externally rotated to approximately 130, extended, and adducted under the opposite leg. A side hook was then placed under the proximal femur, and the side hook elevator was used to elevate the proximal femur while releasing the capsule. Retractors were then placed. A capsular release was performed, as well as a release of the conjoined tendon, which afforded excellent visualization of the proximal femur. Next, a box osteotome was used to lateralize the proximal femur. A washhouse hand was then used to locate the femoral canal. Sequential broaching was then performed with appropriate size which afforded excellent fixation in the proximal femur. A trial was then placed with appropriate head and neck, and the hip was gently reduced with the aid of the [place] table. Fluoroscopy was then used to check position of the components, as well as to ensure equal leg lengths. The hip was then gently dislocated and the trials were then removed. Final implants were then impacted and the hip was again reduced. Final fluoroscopic x-rays confirmed that the components were in anatomic position, as well as equal leg lengths. The hip was also taken through range of motion, and found to be stable. The hip was then copiously irrigated with antibiotic solution with pulsatile lavage. The hip was then irrigated with Irrisept solution. The soft tissues were then injected with a ropivacaine solution, which consisted of 246.25 mg of ropivacaine, 0.5 mg of epinephrine, 30 mg of Toradol, 80 g of clonidine, and 48.45 mL of sterile water, for a total of 100 mL of fluid injected. A second dose of 1 g of Tranexamic acid was also given intravenously. Any blood collected by Cell Saver was then returned to the patient at this time. The fascia was then closed with 2-0 strata fix suture. The subcutaneous tissue was closed with 3-0 Vicryl. The subcuticular tissue was closed with 3-0 strata fix suture. The skin was then closed with Exofin skin glue. After the glue and dried, and Optifoam silver impregnated dressing was applied. The patient was then transferred to the recovery room in stable condition. The psychologist research assistant MADDIE Ram was required due to the complexity of surgery, and the need for skilled salesperson surgical appliances for positioning, draping, exposure, retraction, and closure of the wound.
[2020-12-20] MEDS ORDERED: LACTATED RINGERS 1,000 ML IV ONE (12:44)
--- NOTE | 2020-12-20 13:21 | XR ---
EXAMINATION TYPE: XR Hip Limited RT DATE OF EXAM: 12/20/2020 Comparison: None Clinical History: 80-year-old female Status post hip surgery, assess surgical alignment Findings: Image shows placement of right hip total articular plasty. Both acetabular cup and femoral stem compo nents of the prosthesis are well seated without periprosthetic fracture. Alignment grossly anatomic. Some soft tissue air related to recent operation. There is a phlebolith in the right side of the pelv is. At least mild degenerative change of the right SI joint joint. Impression: Uncomplicated postoperative appearance right hip total arthroplasty.
--- NOTE | 2020-12-20 13:29 | XR ---
EXAMINATION TYPE: XR Hip Limited RT, FL guidance operating room DATE OF EXAM: 12/20/2020 Comparison: None Clinical History: 80-year-old female Rt Hip-Ant Findings: Intraoperative fluoroscopic images during placement of right hip total arthroplasty. FLUOROSCOPY Fluoroscopy time of 40 seconds was used during anterior right hip replacement. 2 image/s document/s the procedure. Impression: Intraoperative fluoroscopy as above.
[2020-12-20] MEDS ORDERED: ONDANSETRON 4 MG/2 ML VIAL IVP ONE (14:51)
[2020-12-20] MEDS ORDERED: ceFAZolin 10 GM VIAL IVPB ONE (15:43)
[2020-12-20] MEDS: SODIUM CHLORIDE 0.9% 1,000 ML IV SCH ×2 (17:24→17:53)
[2020-12-21] MEDS: LACTATED RINGERS 1,000 ML IV SCH (04:45)
[2020-12-21 08:18] VITALS: BP 102/51; PULSE 62; TEMP 99.1
[2020-12-21 09:47] VITALS: RESP 20
--- NOTE | 2020-12-21 10:46 | P.DS ---
Providers Expected date of discharge: 12/21/20 Attending physician: Alejandro Nugent Primary care physician: Savannah Curtisden - Discharge Diagnosis(es) (1) Primary localized osteoarthritis of right hip Current Visit: Yes Status: Acute (2) Status post total hip replacement, right Current Visit: Yes Status: Acute Hospital Course: This is an 80-year-old female with known history of degenerative arthritis of the right hip. The patient presents for evaluation. After discussion and consideration patient elects to proceed with total hip arthroplasty with direct anterior approach. The patient is seen preoperatively by her primary care physician and cleared for surgery. Patient is admitted to [facility] on 12/20/2020 total hip arthroplasty with direct anterior approach . The procedures performed without complication or sequelae. The patient is doing well postoperatively. Labs and vital signs are stable on day of discharge. On day of discharge patient's hip incision is healing well. There is minimal erythema. There is no drainage noted at this time. There is minimal soft tissue swelling to the hip and thigh. Patient has full foot and ankle motion without difficulty or pain. Neurovascular status to the right lower extremity is intact. Patient is discharged to home in good condition. Please see med rec for accurate list of home medications. Patient Condition at Discharge: Good Plan - Discharge Summary Discharge Rx Participant: No New Discharge Prescriptions: New HYDROcodone/APAP 7.5-325MG [[place] 7.5-325] 1 - 2 tab PO Q6H PRN #32 tab PRN Reason: Pain Sennosides [Senokot] 2 tab PO DAILY PRN #60 tablet PRN Reason: Constipation Ondansetron Odt [Zofran Odt] 1 tab PO Q8HR PRN #10 tab PRN Reason: Nausea No Action Montelukast [Singulair] 10 mg PO HS Apixaban [Eliquis] 5 mg PO BID #60 tab Metoprolol Tartrate [Lopressor] 25 mg PO DAILY Losartan [Cozaar] 50 mg PO DAILY Turmeric Root Extract [Turmeric] 500 mg PO DAILY PRN PRN Reason: Pain Naproxen Sodium [Aleve] 220 - 440 mg PO DAILY PRN PRN Reason: Pain Sulfamethox-Tmp 800-160Mg [Bactrim DS 800-160 mg] 1 tab PO Q12HR Vitamin D3 Drops 3 - 4 drops PO DAILY Spironolactone [Aldactone] 25 mg PO DAILY Vitamin B-12 (Unknown Dose) 1 tab PO DAILY Discharge Medication List Montelukast [Singulair] 10 mg PO HS 03/14/19 [History] Apixaban [Eliquis] 5 mg PO BID #60 tab 03/18/19 [Rx] Losartan [Cozaar] 50 mg PO DAILY 03/27/19 [History] Metoprolol Tartrate [Lopressor] 25 mg PO DAILY 03/27/19 [History] Turmeric Root Extract [Turmeric] 500 mg PO DAILY PRN 04/15/19 [History] Naproxen Sodium [Aleve] 220 - 440 mg PO DAILY PRN 05/11/19 [History] Sulfamethox-Tmp 800-160Mg [Bactrim DS 800-160 mg] 1 tab PO Q12HR 05/11/19 [History] Spironolactone [Aldactone] 25 mg PO DAILY 12/16/20 [History] Vitamin B-12 (Unknown Dose) 1 tab PO DAILY 12/16/20 [History] Vitamin D3 Drops 3 - 4 drops PO DAILY 12/16/20 [History] HYDROcodone/APAP 7.5-325MG [[place] 7.5-325] 1 - 2 tab PO Q6H PRN #32 tab 12/20/20 [Rx] Ondansetron Odt [Zofran Odt] 1 tab PO Q8HR PRN #10 tab 12/20/20 [Rx] Sennosides [Senokot] 2 tab PO DAILY PRN #60 tablet 12/20/20 [Rx] Follow up Appointment(s)/Referral(s): Savannah Hill III, MD [Primary Care Provider] - 12/26/20 9:00 am [facility], [NON-STAFF] - As Needed Care,Aly Dickson [NON-STAFF] - As Needed Alejandro Nugent DO [Doctor of Osteopathic Medicine] - 01/04/21 10:20 am Patient Instructions/Handouts: *Surgery [facility] - Anesthesia Discharge Instructions, How to Use an Incentive Spirometer (DC), Precautions after Total Joint Replacement Surgery (DC), Anterior Hip Replacement (DC) Activity/Diet/Wound Care/Special Instructions: weight bearing as andre with walker Leave dressing intact- dressing may be removed by homecare nurse or pt in 7 days, then change dressing twice a day. Discharge Disposition: HOME SELF-CARE
[2020-12-21 11:38] LABS: Basophils # (A) 0.04 X 10*3/uL (0.00-0.10); Basophils % (A) 0.4 %; Eosinophils # (A) 0.03 X 10*3/uL (0.04-0.35); Eosinophils % (A) 0.3 %; HCT 30.2 % (37.2-46.3); HGB 9.7 g/dL (12.0-15.0); Lymphocytes # (A) 1.16 X 10*3/uL (0.90-5.00); Lymphocytes % (A) 10.3 %; MCH 27.6 pg (27.0-32.0); MCHC 32.1 g/dL (32.0-37.0); Mean Platelet Volume 9.5 fL (9.5-12.2); Monocytes # (A) 1.24 X 10*3/uL (0.20-1.00); Neutrophils # (A) 8.76 X 10*3/uL (1.80-7.70); Neutrophils % (A) 77.6 %; Platelet Count 234 X 10*3/uL (140-440); RBC 3.51 X 10*6/uL (4.10-5.20); RDW 14.1 % (11.5-14.5); WBC 11.28 X 10*3/uL (4.50-10.00)
== END 2020-12-21 11:36 | disposition home or self-care (01) ==
LOC: OR 09:32 → 4SSUR 17:10 → OR 12-21 11:36
PROVIDERS: ATTEND Orthopaedic Surgery
DX: M16.11 Unilateral primary osteoarthritis, right hip (principal); I10 Essential (primary) hypertension; I48.91 Unspecified atrial fibrillation; Z79.01 Long term (current) use of anticoagulants
CPT/HCPCS: 27130; 97116; 97162; 97535; 97165; 86891; 86900; 86901; 85025; 86850; 88300; 73501; C1776; J0171; J1644; J2710; J0690 ×2; J2405; J2001; J3010; J1885; J1170 ×2; J2795; J0330; J2704; J0735

== ENCOUNTER → 2021-04-08 | Outpatient (CLI) | payer MEDICARE, OTHER ==
[2021-04-08 16:21] LABS: HCT 37.8 % (37.2-46.3); HGB 11.3 g/dL (12.0-15.0); MCH 22.9 pg (27.0-32.0); MCHC 29.9 g/dL (32.0-37.0); MCV 76.5 fL (80.0-97.0); Mean Platelet Volume 8.8 fL (9.5-12.2); NRBC Per 100 WBC 0 /100 WBCS (0.0-0.0); Platelet Count 389 X 10*3/uL (140-440); RBC 4.94 X 10*6/uL (4.10-5.20); RDW 15.6 % (11.5-14.5); WBC 9.21 X 10*3/uL (4.50-10.00)
[2021-04-08 16:28] LABS: African American GFR (CKD) 84.7 (60.0-200.0); Anion Gap 11.7 mmol/L (10.00-18.00); Blood Urea Nitrogen 17.4 mg/dL (9.0-27.0); Carbon Dioxide 21.6 mmol/L (20.0-27.5); Potassium 4.3 mmol/L (3.5-5.5)
[2021-04-09 13:08] LABS: Coronavirus SARS CoV-2 Not Detected (Not Detected)
== END | disposition home or self-care (01) ==
LOC: LABPAT 09:56
PROVIDERS: ATTEND Internal Medicine Interventional Cardiology
DX: Z01.812 Encounter for preprocedural laboratory examination (principal); Z20.822 Contact with and (suspected) exposure to COVID-19; I48.19 Other persistent atrial fibrillation
CPT/HCPCS: 80051; 82565; 84520; 85027; U0003; U0005

== ENCOUNTER 2021-04-11 06:31 | Day surgery (SDC) | payer MEDICARE, OTHER ==
[2021-04-07 14:00] VITALS: BMI 35.5
[~2021-04-11 06:31] MED LIST changes: -ACETAMINOPHEN TAB 500 MG TAB PO PRN; -GABAPENTIN 300 MG CAP PO PRN; -HYDROmorphone 0.5 MG/0.5 ML SYRINGE IVP PRN; -LIDOCAINE 1% (10MG/ML) FOR IV START INTRADERMA PRN; -MELOXICAM 7.5 MG TAB PO PRN; -ONDANSETRON 4 MG/2 ML VIAL IVP ONE; +SODIUM CHLORIDE 0.9% 1,000 ML IV SCH; -TRANEXAMIC ACID 1,000 MG in SODIUM CHLORIDE 0.9% 100 ML IVPB PRN
[2021-04-11] MEDS ORDERED: SODIUM CHLORIDE 0.9% 500 ML 500 ML IV ONE (06:48)
[2021-04-11 07:30] VITALS: TEMP 98
[2021-04-11] MEDS ORDERED: PROPOFOL 10 MG/ML 20 ML VIAL IV ONE (07:30)
[2021-04-11] MEDS ORDERED: LIDOCAINE 1% INJ 10MG/ML (20 ML MDV) ONE (07:30)
--- NOTE | 2021-04-11 09:14 | PCN ---
PROCEDURE NOTE ELECTRICAL CARDIOVERSION REPORT: DATE OF SERVICE: 04/11/2021. PROCEDURE: Electrical cardioversion. INDICATION: Persistent atrial fibrillation. Mrs. Alonzo is an 80-year-old lady with a history of nonischemic cardiomyopathy and persistent atrial fibrillation. She was adequately anticoagulated with Eliquis 5 mg b.i.d. and also rate control with metoprolol. She was brought in for the procedure electively after due discussion regarding risks, benefits and options. PROCEDURE NOTE: Under the influence of an [id number] intravenous anesthetic agent with the attendance of the anesthesiologist, a single shock was delivered to the chest wall with anterior and posterior patches. She converted to sinus rhythm, had sinus bradycardia, remained neurologically intact and hemodynamically stable. This was a successful electrical cardioversion. Patient will be discharged later on today when she is finally awake and ambulates. We will send her home on 12.5 mg metoprolol tartrate t.i.d. and I will see her in the office this Saturday. MMSAUL / CONYN: [id number] /
[2021-04-11] MEDS ORDERED: NON FORMULARY DRUG (Turmeric Root Extract [Turmeric] 500 MG Capsule) PO PRN (10:52)
[2021-04-11] MEDS ORDERED: NAPROXEN 250 MG TAB PO PRN (10:52)
[2021-04-11 16:02] VITALS: RESP 16
[2021-04-11 16:04] VITALS: PULSE 45
[2021-04-11 16:06] VITALS: BP 121/67
[2021-04-11] MEDS ORDERED: APIXABAN 5 MG TAB PO SCH (21:00)
[2021-04-11] MEDS ORDERED: MONTELUKAST 10 MG TAB PO SCH (21:00)
[2021-04-12] MEDS ORDERED: METOPROLOL TARTRATE 12.5 MG TAB PO SCH (09:00)
[2021-04-12] MEDS ORDERED: CYANOCOBALAMIN 500 MCG TAB PO SCH (09:00)
[2021-04-12] MEDS ORDERED: AMIODARONE 200 MG TAB PO SCH (09:00)
[2021-04-12] MEDS ORDERED: LOSARTAN 50 MG TAB PO SCH (09:00)
[2021-04-12] MEDS ORDERED: SPIRONOLACTONE 25 MG TAB PO SCH (09:00)
== END 2021-04-11 11:04 | disposition home or self-care (01) ==
LOC: CATHCVL 06:31
PROVIDERS: ATTEND Internal Medicine Interventional Cardiology
DX: I48.19 Other persistent atrial fibrillation (principal); I42.8 Other cardiomyopathies; I11.0 Hypertensive heart disease with heart failure; I50.22 Chronic systolic (congestive) heart failure; Z96.641 Presence of right artificial hip joint; Z98.890 Other specified postprocedural states; Z79.01 Long term (current) use of anticoagulants; Z79.899 Other long term (current) drug therapy; Z79.1 Long term (current) use of non-steroidal anti-inflammatories (NSAID)
CPT/HCPCS: 92960; J2001; J2704

== ENCOUNTER → 2021-10-05 | Outpatient (CLI) | payer MEDICARE, OTHER ==
--- NOTE | 2021-10-06 08:05 | MM ---
Reason for Exam: Screening (asymptomatic). Last screening mammogram was performed 12 month(s) ago. Patient History: Menarche at age 12. First Full-Term at age 21. Left ovary removed at age 48. Right ovary removed at age 48. Hysterectomy at age 48. Postmenopausal. Estrogen for 9 years from age 48 until age 58. Progesterone for 9 years from age 48 until age 58. Risk Values: Diann 5 year model risk: 1.5%. NCI Lifetime model risk: 2.3%. Prior Study Comparison: 05/09/2018 Screening Mammogram, Unknown. 09/10/2019 Bilateral Screening Mammogram, [facility]. 10/04/2020 Bilateral Screening Mammogram, [facility]. Tissue Density: There are scattered fibroglandular densities. Findings: Analyzed By CAD. There is no suspicious group of microcalcifications or new suspicious mass in either breast. Overall Assessment: Negative, BI-RAD 1 Management: Screening Mammogram of both breasts in 1 year. A clinical breast exam by your physician is recommended on an annual basis and results should be correlated with mammographic findings. Electronically signed and approved by: Earl Crow DO
== END | disposition home or self-care (01) ==
LOC: RADMAMWWP 16:48
PROVIDERS: ATTEND Family Medicine
DX: Z12.31 Encounter for screening mammogram for malignant neoplasm of breast (principal); Z78.0 Asymptomatic menopausal state
CPT/HCPCS: 77063; 77067

== ENCOUNTER → 2022-08-24 | Outpatient (CLI) | payer MEDICARE, OTHER ==
--- NOTE | 2022-08-24 14:26 | US ---
EXAMINATION TYPE: US kidneys/renal and bladder DATE OF EXAM: 08/24/2022 COMPARISON: NONE CLINICAL INDICATION: Female, 81 years old with history of R05.3 CHRONIC COUGH; abn renal function EXAM MEASUREMENTS: Right Kidney: 11.0x5.0x4.2 cm Left Kidney: 9.6x5.9x4.4 cm Right Kidney: No hydronephrosis or masses seen Left Kidney: No hydronephrosis or masses seen Bladder: wnl Bilateral Jets seen: Yes There is no evidence for hydronephrosis at this point in time. No nephrolithiasis is seen. No bib s are identified. The urinary bladder is anechoic. Bilateral ureteral jets are seen. Exam slightly limited due to limited patient mobility, bowel gas and rib shadows IMPRESSION: No discrete abnormalities seen
--- NOTE | 2022-08-24 19:09 | CT ---
EXAMINATION TYPE: CT chest wo con DATE OF EXAM: 08/24/2022 COMPARISON: 03/14/2019 HISTORY: 81-year-old female R05.3, chronic cough TECHNIQUE: Contiguous axial scanning of the chest without IV contrast. Coronal and sagittal reconstru ctions performed. CT DLP: 386.1 mGycm Automated exposure control for dose reduction was used. FINDINGS: Suspect a 1.3 cm hypodense nodule left lobe of the thyroid gland, not well seen previously. Thyroid u ltrasound to exclude underlying nodule. Heart is enlarged without pericardial effusion. LAD coronary artery calcifications are present. Ectatic ascending aorta 3.9 cm. Minimal atherosclerotic arch calcifications with commensurate vessel branching anatomy. Large caliber to the main right and left pulmonary arteries up to 3.1 cm suggesting underlying pulmon tom hypertension. No thoracic lymphadenopathy by CT size criteria. There is diffuse breathing motion which limits evaluation. There appears to be dynamic flattening of the bilateral mainstem bronchi. Some strandy atelectasis in the lower lungs. No consolidation or pleu ral effusion. Small hiatal hernia. Otherwise, visualized upper abdomen shows no gross abnormality. Bones: DISH throughout the thoracic spine. There appears to be a subacute, healing transverse fractur e through the sternal manubrium with periosteal callus with persistent fracture line. Further clinica l correlation recommended. IMPRESSION: 1. PROMINENT BREATHING MOTION. NO ACUTE PULMONARY PROCESS SEEN. 2. There appears to be a subacute, healing transverse fracture through the sternal manubrium. Further clinical correlation advised. 3. Large caliber to the main right and left pulmonary arteries suggesting underlying pulmonary arteri al hypertension. Clinically correlate. 4. There appears to be dynamic collapsibility of the mainstem bronchi which is apparent only because the patient was breathing during the scan. Correlate for possible bronchomalacia. 5. Thyroid ultrasound to exclude an underlying 1.3 cm left thyroid lobe nodule. 6. Small hiatal hernia.
== END | disposition home or self-care (01) ==
LOC: RADUSWWP 12:57
PROVIDERS: ATTEND Internal Medicine
DX: K44.9 Diaphragmatic hernia without obstruction or gangrene (principal); E04.1 Nontoxic single thyroid nodule
CPT/HCPCS: 71250; 76770

== ENCOUNTER → 2022-10-01 | Outpatient (CLI) | payer MEDICARE, OTHER ==
--- NOTE | 2022-10-01 10:36 | US ---
EXAMINATION TYPE: US thyroid st tissue head/neck DATE OF EXAM: 10/01/2022 COMPARISON: CLINICAL INDICATION: Female, 81 years old with history of E04.1 THYROID NODULE; Recent CT chest showe d left thyroid nodule. Not on thyroid meds. GLAND SIZE: Right Lobe: 2.7 x 1.7 x 1.9 cm Overall Parenchyma: heterogenous Left Lobe: 3.1 x 1.8 x 1.9 cm Overall Parenchyma: heterogenous Isthmus Thickness: 0.7 cm NODULES- Multiple subcentimeter nodules visualized bilaterally, largest measured RIGHT: # of nodules measured on right: 1 1. 0.7 X 0.7 x 0.6 cm, upper lateral, Prior size: No prior TIRADS Score: 3 TIRADS Category 3: Mildly Suspicious Composition: Solid or almost completely solid (2 points). Echogenicity: Hyperechoic or isoechoic (1 point). Shape: Wider than tall (0 points). Margin: Smooth (0 points). Echogenic foci: None or large comet-tail artifacts (0 points) Recommendation: If >2.5cm: FNA; If >1.5cm: Follow up at 1,3,5 years LEFT: # of nodules measured on left: 1 1. 1.1 X 1.0 x 1.0 cm, upper mid, Prior size: CT 1.3 cm TIRADS Score: 3 TIRADS Category 3: Mildly Suspicious Composition: Solid or almost completely solid (2 points). Echogenicity: Hyperechoic or isoechoic (1 point). Shape: Wider than tall (0 points). Margin: Smooth (0 points). Echogenic foci: None or large comet-tail artifacts (0 points) Recommendation: If >2.5cm: FNA; If >1.5cm: Follow up at 1,3,5 years ISTHMUS: # of nodules measured in the isthmus: 0 Bilateral neck scanned, no evidence of lymphadenopathy. IMPRESSION: Bilateral thyroid nodules which do not meet criteria for tissue sampling. Consider follow-up imaging in one year.
== END | disposition home or self-care (01) ==
LOC: RADUSWWP 09:27
PROVIDERS: ATTEND Internal Medicine
DX: E04.2 Nontoxic multinodular goiter (principal)
CPT/HCPCS: 76536

== ENCOUNTER 2022-11-07 10:49 | Inpatient (IN) | payer MEDICARE, OTHER ==
--- NOTE | 2022-11-07 11:28 | XR ---
EXAMINATION TYPE: XR chest 2V DATE OF EXAM: 11/07/2022 COMPARISON: 03/17/2019 INDICATION: Dysrhythmia, confusion TECHNIQUE: Frontal and lateral views of the chest are obtained. FINDINGS: The heart size is normal. The pulmonary vasculature is upper limits for normal. The lateral projection there is some slight increased density within the lower lung field. Clinical c orrelation for infiltrate is recommended. This is nonspecific. Atelectasis, pneumonia, atypical pulmo nary edema could be considered. IMPRESSION: 1. Nonspecific posterior lung infiltrate may be present. Correlation recommended.
[2022-11-07 11:36] LABS: Anisocytosis Slight; Basophils # (A) 0.1 k/uL (0-0.2); Basophils % (A) 1 %; Eosinophils # (A) 0.3 k/uL (0-0.7); Eosinophils % (A) 3 %; HGB 13.1 gm/dL (11.4-16.0); Lymphocytes # (A) 0.8 k/uL (1.0-4.8); Lymphocytes % (A) 8 %; MCH 28.3 pg (25.0-35.0); MCHC 33.5 g/dL (31.0-37.0); MCV 84.5 fL (80.0-100.0); Mean Platelet Volume 7.2; Monocytes # (A) 0.7 k/uL (0-1.0); Monocytes % (A) 7 %; Neutrophils # (A) 8.1 k/uL (1.3-7.7); Neutrophils % (A) 80 %; Platelet Count 275 k/uL (150-450); RBC 4.62 m/uL (3.80-5.40); RDW 16.1 % (11.5-15.5); WBC 10.2 k/uL (3.8-10.6)
[2022-11-07 11:41] LABS: Prothrombin Time 10.9 sec (9.0-12.0)
[2022-11-07 11:46] LABS: ALT 21 U/L (4-34); AST 33 U/L (14-36); African American GFR (CKD) 54 (>60 ml/min/1.73 sqM); Albumin 3.6 g/dL (3.5-5.0); Alkaline Phosphatase 92 U/L (38-126); Anion Gap 10 mmol/L; Blood Urea Nitrogen 19 mg/dL (7-17); Carbon Dioxide 22 mmol/L (22-30); Chloride 103 mmol/L (98-107); Glucose 113 mg/dL (74-99); Magnesium 2.3 mg/dL (1.6-2.3); Non-African American GFR(CKD) 47 (>60 ml/min/1.73 sqM); Potassium 4.5 mmol/L (3.5-5.1); Sodium 135 mmol/L (137-145); Total Protein 6.5 g/dL (6.3-8.2)
[2022-11-07 11:50] LABS: Partial Thromboplastin Time 20.3 sec (22.0-30.0)
--- NOTE | 2022-11-07 11:59 | ED ---
General Adult HPI - General Chief complaint: Arrhythmia/Palpitations Stated complaint: Bradycardia Time Seen by Provider: 11/07/22 10:50 Source: patient, EMS, RN notes reviewed, old records reviewed Mode of arrival: EMS Limitations: no limitations - History of Present Illness Initial comments: 81-year-old female presenting from urgent care for evaluation of bradycardia. Patient had gone to urgent care initially for a progressive cough over the past one week which is productive of yellow sputum and concern for urinary tract infection as the patient does have history of recurrent UTI. No central chest pain. No dyspnea. No lower extremity pain or swelling. Patient is on metoprolol and amiodarone. No central chest pain. - Related Data Home Medications Medication Instructions Recorded Confirmed Montelukast [Singulair] 10 mg PO HS 03/14/19 11/07/22 Losartan [Cozaar] 25 mg PO DAILY 03/27/19 11/07/22 Spironolactone [Aldactone] 25 mg PO DAILY 12/16/20 11/07/22 Amiodarone [Cordarone] 200 mg PO DAILY 04/11/21 11/07/22 Cranberry Fruit Extract [Cranberry] 500 mg PO DAILY 11/07/22 11/07/22 Estradiol Cream [Estrace Cream 0.5 applic VAGINAL DIRECTED 11/07/22 11/07/22 0.01%] Fesoterodine Fumarate 4 mg PO DAILY 11/07/22 11/07/22 [Fesoterodine Fumarate ER] Metoprolol Tartrate [Lopressor] 25 mg PO BID 11/07/22 11/07/22 Previous Rx's Medication Instructions Recorded Apixaban [Eliquis] 5 mg PO BID #60 tab 03/18/19 Allergies Allergy/AdvReac Type Severity Reaction Status Date / Time Penicillins Allergy Unknown Verified 11/07/22 11:17 Review of Systems ROS Statement: Those systems with pertinent positive or pertinent negative responses have been documented in the HPI. ROS Other: All systems not noted in ROS Statement are negative. Past Medical History Past Medical History: Atrial Fibrillation, Heart Failure, Musculoskeletal Disorder, Osteoarthritis (OA) Additional Past Medical History / Comment(s): Hx Allergies, UTI's, osteoporosis, Rt hip OA. History of Any Multi-Drug Resistant Organisms: None Reported Past Surgical History: Adenoidectomy, Hysterectomy, Joint Replacement, Tonsillectomy Additional Past Surgical History / Comment(s): THBSO, Rhinoplasty. Colonoscopy. Samm Cataracts. Cardioversion. Total Rt Hip Past Anesthesia/Blood Transfusion Reactions: No Reported Reaction Past Psychological History: No Psychological Hx Reported Smoking Status: Never smoker Past Alcohol Use History: None Reported Past Drug Use History: None Reported - Past Family History Father Additional Family Medical History / Comment(s): Alcoholism Mother Family Medical History: CVA/TIA Additional Family Medical History / Comment(s): . General Exam Limitations: no limitations General appearance: alert, in no apparent distress Head exam: Present: atraumatic, normocephalic Eye exam: Present: normal appearance, PERRL ENT exam: Present: normal exam Neck exam: Present: normal inspection. Absent: tenderness, meningismus Respiratory exam: Present: normal lung sounds bilaterally. Absent: respiratory distress, wheezes Cardiovascular Exam: Present: normal rhythm, bradycardia GI/Abdominal exam: Present: soft. Absent: distended, tenderness Extremities exam: Present: normal inspection, normal capillary refill. Absent: pedal edema, calf tenderness Neurological exam: Present: alert, oriented X3, CN II-XII intact. Absent: motor sensory deficit Psychiatric exam: Present: normal affect, normal mood Skin exam: Present: warm, dry, intact. Absent: cyanosis, diaphoretic Course Vital Signs 11/07/22 10:50 Temperature 98.1 F Pulse Rate 33 L Respiratory 22 Rate Blood Pressure 98/45 O2 Sat by Pulse 96 Oximetry Medical Decision Making - Medical Decision Making Was pt. sent in by a medical professional or institution (, PA, RELOCATION ASSOCIATE, urgent care, hospital, or long-term...) When possible be specific @ -No Did you speak to anyone other than the patient for history (EMS, parent, family, police, friend...)? What history was obtained from this source @ -No Did you review nursing and triage notes (agree or disagree)? Why? @ -I reviewed and agree with nursing and triage notes Were old charts reviewed (outside hosp., previous admission, EMS record, old EKG, old radiological studies, urgent care reports/EKG's, long-term records)? Report findings @ -No old charts were reviewed Differential Diagnosis (chest pain, altered mental status, abdominal pain women, abdominal pain men, vaginal bleeding, weakness, fever, dyspnea, syncope, headache, dizziness, GI bleed, back pain, seizure, CVA, palpatations, mental health, musculoskeletal)? @ -not applicable EKG interpreted by me (3pts min.). @ -Bradycardia rate of 31 QRS duration 121, QTC 359, no ST segment elevation. Repeat EKG at 1252, narrow complex rhythm no P waves, ventricular rate of 28, QRS duration 118, QTC 369, no ST segment elevation. X-rays interpreted by me (1pt min.). @ -None done CT interpreted by me (1pt min.). @ -None done U/S interpreted by me (1pt. min.). @ -None done What testing was considered but not performed or refused? (CT, X-rays, U/S, labs)? Why? @ -None What meds were considered but not given or refused? Why? @ -None Did you discuss the management of the patient with other professionals (professionals i.e. , PA, RELOCATION ASSOCIATE, lab, RT, psych nurse, social welfare research worker, scheduling manager, teacher, corporate security officer, lining caser)? Give summary @ -[Case discussed with [facility] and Dr. Drew covering for cardiology, will hold amiodarone and metoprolol at this time. Was smoking cessation discussed for >3mins.? @ -No Was critical care preformed (if so, how long)? @ -No Were there social determinants of health that impacted care today? How? (Homelessness, low income, unemployed, alcoholism, drug addiction, transportation, low edu. Level, literacy, decrease access to med. care, correction, rehab)? @ -No Was there de-escalation of care discussed even if they declined (Discuss DNR or withdrawal of care, Hospice)? DNR status @ -No What co-morbidities impacted this encounter? (DM, HTN, Smoking, COPD, CAD, Can cer, CVA, ARF, Chemo, Hep., AIDS, mental health diagnosis, sleep apnea, morbid obesity)? @ A fibrillation Was patient admitted / discharged? Hospital course, mention meds given and route, prescriptions, significant lab abnormalities, going to OR and other pertinent info. @ -81-year-old female with cough, bradycardia. Presented from urgent care with bradycardia. Patient asymptomatic. She is in near complex rhythm, suspect slow junctional rhythm rate around 30. Hemodynamics are stable. Amiodarone and metoprolol will be held. She has essentially normal laboratory testing, chest x-ray shows concern for possible infiltrate patient is started on antibiotics for developing pneumonia. Case is discussed with internal medicine and card iology. Patient admitted. Undiagnosed new problem with uncertain prognosis? @ -No Drug Therapy requiring intensive monitoring for toxicity (Heparin, Nitro, Insulin, Cardizem)? @ -No Were any procedures done? @ -No Diagnosis/symptom? @ Pneumonia, bradycardia Acute, or Chronic, or Acute on Chronic? @ -Acute Uncomplicated (without systemic symptoms) or Complicated (systemic symptoms)? @ Complicated Side effects of treatment? @ -No Exacerbation, Progression, or Severe Exacerbation? @ -No Poses a threat to life or bodily function? How? (Chest pain, USA, ME, pneumonia, PE, COPD, DKA, ARF, appy, cholecystitis, CVA, Diverticulitis, Homicidal, Suicidal, threat to staff... and all critical care pts) @ -[Yes, arrhythmia, cyanosis - Lab Data Result diagrams: 11/07/22 11:04 11/07/22 11:04 Lab Results 11/07/22 11/07/22 11/07/22 Range/Units 11:04 11:04 11:04 WBC 10.2 (3.8-10.6) k/uL RBC 4.62 (3.80-5.40) m/uL Hgb 13.1 (11.4-16.0) gm/dL Hct 39.0 (34.0-46.0) % MCV 84.5 (80.0-100.0) fL MCH 28.3 (25.0-35.0) pg MCHC 33.5 (31.0-37.0) g/dL RDW 16.1 H (11.5-15.5) % Plt Count 275 (150-450) k/uL MPV 7.2 Neutrophils % 80 % Lymphocytes % 8 % Monocytes % 7 % Eosinophils % 3 % Basophils % 1 % Neutrophils # 8.1 H (1.3-7.7) k/uL Lymphocytes # 0.8 L (1.0-4.8) k/uL Monocytes # 0.7 (0-1.0) k/uL Eosinophils # 0.3 (0-0.7) k/uL Basophils # 0.1 (0-0.2) k/uL Anisocytosis Slight PT 10.9 (9.0-12.0) sec INR 1.0 (<1.2) APTT 20.3 L (22.0-30.0) sec Sodium 135 L (137-145) mmol/L Potassium 4.5 (3.5-5.1) mmol/L Chloride 103 (98-107) mmol/L Carbon Dioxide 22 (22-30) mmol/L Anion Gap 10 mmol/L BUN 19 H (7-17) mg/dL Creatinine 1.10 H (0.52-1.04) mg/dL Est GFR (CKD-EPI)AfAm 54 (>60 ml/min/1.73 sqM) Est GFR (CKD-EPI)NonAf 47 (>60 ml/min/1.73 sqM) Glucose 113 H (74-99) mg/dL Calcium 9.0 (8.4-10.2) mg/dL Magnesium 2.3 (1.6-2.3) mg/dL Total Bilirubin 1.0 (0.2-1.3) mg/dL AST 33 (14-36) U/L ALT 21 (4-34) U/L Alkaline Phosphatase 92 (38-126) U/L Troponin I (0.000-0.034) ng/mL Total Protein 6.5 (6.3-8.2) g/dL Albumin 3.6 (3.5-5.0) g/dL Influenza Type A (PCR) (Not Detectd) Influenza Type B (PCR) (Not Detectd) RSV (PCR) (Not Detectd) SARS-CoV-2 (PCR) (Not Detectd) 11/07/22 11/07/22 Range/Units 11:04 11:05 WBC (3.8-10.6) k/uL RBC (3.80-5.40) m/uL Hgb (11.4-16.0) gm/dL Hct (34.0-46.0) % MCV (80.0-100.0) fL MCH (25.0-35.0) pg MCHC (31.0-37.0) g/dL RDW (11.5-15.5) % Plt Count (150-450) k/uL MPV Neutrophils % % Lymphocytes % % Monocytes % % Eosinophils % % Basophils % % Neutrophils # (1.3-7.7) k/uL Lymphocytes # (1.0-4.8) k/uL Monocytes # (0-1.0) k/uL Eosinophils # (0-0.7) k/uL Basophils # (0-0.2) k/uL Anisocytosis PT (9.0-12.0) sec INR (<1.2) APTT (22.0-30.0) sec Sodium (137-145) mmol/L Potassium (3.5-5.1) mmol/L Chloride (98-107) mmol/L Carbon Dioxide (22-30) mmol/L Anion Gap mmol/L BUN (7-17) mg/dL Creatinine (0.52-1.04) mg/dL Est GFR (CKD-EPI)AfAm (>60 ml/min/1.73 sqM) Est GFR (CKD-EPI)NonAf (>60 ml/min/1.73 sqM) Glucose (74-99) mg/dL Calcium (8.4-10.2) mg/dL Magnesium (1.6-2.3) mg/dL Total Bilirubin (0.2-1.3) mg/dL AST (14-36) U/L ALT (4-34) U/L Alkaline Phosphatase (38-126) U/L Troponin I <0.012 (0.000-0.034) ng/mL Total Protein (6.3-8.2) g/dL Albumin (3.5-5.0) g/dL Influenza Type A (PCR) Not Detected (Not Detectd) Influenza Type B (PCR) Not Detected (Not Detectd) RSV (PCR) Not Detected (Not Detectd) SARS-CoV-2 (PCR) Not Detected (Not Detectd) Disposition Clinical Impression: Pneumonia, Bradycardia Disposition: ADMITTED IP TO THIS HOSP Condition: Stable Is patient prescribed a controlled substance at d/c from ED?: No Referrals: Addi Craig MD [Primary Care Provider] - 1-2 days Time of Disposition: 13:13
[2022-11-07] MEDS ORDERED: ACETAMINOPHEN TAB 325 MG TAB PO PRN (13:09)
[2022-11-07] MEDS ORDERED: NALOXONE 0.4 MG/ML 1 ML VIAL IV PRN (13:09)
[2022-11-07] MEDS: SODIUM CHLORIDE 0.9% 1,000 ML IV SCH (13:27)
--- NOTE | 2022-11-07 16:30 | P.HPIM ---
History of Present Illness H&P Date: 11/07/22 Patient is a 81F with hx of COPD, Afib, HTN presenting with cough and SOB. She lives in [place] and [place] at times. She recently came back from [place] and has been having persistently worsening cough, productive. She has also been having increased confusion which prompted the family to bring her to urgent care. At urgent care she was noted to be bradycardic, and was asked to come to the ER. She denies any issues with lightheadedness, chest pain, nausea, vomiting, abdominal pain, urinary or bowel complaints. In the past she is also urinary tract infection causing encephalopathy. She normally ambulates without assistance. She denies any smoking, alcohol use, or illicit drug use. In the ED, temp was 98.1F, pulse 33, RR 22, BP 98/45, 96% on RA. WBC 10.2, Hgb 13.1, plt 275, Na 135, K 4.5, Cr 1.1, Trop neg x1, respiratory viral panel negative. CXR shows developing posterior infarct. EKG shows bradycardia with junctional rhythm. Patient admitted for bradycardia and pneumonia. Pertinent positives and negatives as discussed in HPI, a complete review of systems was performed and all other systems are negative. Patient seen and examined at bedside. Vital signs reviewed General: nontoxic, no distress, appears at stated age Derm: warm, dry Head: atraumatic, normocephalic, symmetric Eyes: EOMI, no lid lag, anicteric sclera, pupils equal round reactive to light ENT: Nose and ears atraumatic Neck: No thyromegaly, supple Mouth: no lip lesion, mucus membranes moist Cardiovascular: S1S2 reg, bradycardia, no murmur, no edema Lungs: clear to auscultation bilateral, no rhonchi, no rales, no wheeze, no accessory muscle use Abdominal: soft, nontender to palpation, no guarding, no appreciable organomegaly Ext: no gross muscle atrophy, muscle strength muscle strength 5 out of 5 in all 4 extremities, no contractures Neuro: CN II-XII grossly intact Psych: Alert, oriented, appropriate affect Assessment/Plan: Community acquired pneumonia Bradycardia Acute metabolic encephalopathy Hypotension Atrial fibrillation - blood cx, sputum cx, procal ordered - lactate ordered - IV ceftriaxone and azithromycin - cardiology consulted - TSH ordered - trop negative - hold metoprolol, and amio - encephalopathy likely in the setting of acute illness - hold losartan and aldactone - echo ordered The patient is admitted with an anticipated greater than 2 midnight stay as inpatient status for evaluation of CAP and bradycardia. Surrogate decision-maker: son CODE STATUS:Full code DVT prophylaxis: eliquis Anticipated discharge date: pending clinical course Anticipated discharge place: pending clinical course Past Medical History Past Medical History: Atrial Fibrillation, Heart Failure, Musculoskeletal Disorder, Osteoarthritis (OA) Additional Past Medical History / Comment(s): Hx Allergies, UTI's, osteoporosis, Rt hip OA. History of Any Multi-Drug Resistant Organisms: None Reported Past Surgical History: Adenoidectomy, Hysterectomy, Joint Replacement, Tonsillectomy Additional Past Surgical History / Comment(s): THBSO, Rhinoplasty. Colonoscopy. Smam Cataracts. Cardioversion. Total Rt Hip Past Anesthesia/Blood Transfusion Reactions: No Reported Reaction Past Psychological History: No Psychological Hx Reported Smoking Status: Never smoker Past Alcohol Use History: None Reported Past Drug Use History: None Reported - Past Family History Father Additional Family Medical History / Comment(s): Alcoholism Mother Family Medical History: CVA/TIA Additional Family Medical History / Comment(s): . Medications and Allergies Home Medications Medication Instructions Recorded Confirmed Type Montelukast [Singulair] 10 mg PO HS 03/14/19 11/07/22 History Apixaban [Eliquis] 5 mg PO BID #60 tab 03/18/19 11/07/22 Rx Losartan [Cozaar] 25 mg PO DAILY 03/27/19 11/07/22 History Spironolactone [Aldactone] 25 mg PO DAILY 12/16/20 11/07/22 History Amiodarone [Cordarone] 200 mg PO DAILY 04/11/21 11/07/22 History Cranberry Fruit Extract [Cranberry] 500 mg PO DAILY 11/07/22 11/07/22 History Estradiol Cream [Estrace Cream 0.5 applic VAGINAL DIRECTED 11/07/22 11/07/22 History 0.01%] Fesoterodine Fumarate 4 mg PO DAILY 11/07/22 11/07/22 History [Fesoterodine Fumarate ER] Metoprolol Tartrate [Lopressor] 25 mg PO BID 11/07/22 11/07/22 History Allergies Allergy/AdvReac Type Severity Reaction Status Date / Time Penicillins Allergy Unknown Verified 11/07/22 11:17 Physical Exam Vitals: Vital Signs Temp Pulse Resp BP Pulse Ox 11/07/22 13:00 28 L 19 119/88 98 11/07/22 12:30 29 L 18 110/81 96 11/07/22 12:00 30 L 18 80/67 97 11/07/22 11:30 30 L 19 117/74 97 11/07/22 10:50 98.1 F 33 L 22 98/45 96 Intake and Output 11/06/22 11/07/22 11/07/22 22:59 06:59 14:59 Other: Weight 99.79 kg Results CBC & Chem 7: 11/07/22 11:04 11/07/22 11:04 Labs: Abnormal Lab Results - Last 24 Hours (Table) 11/07/22 11/07/22 11/07/22 Range/Units 11:04 11:04 11:04 RDW 16.1 H (11.5-15.5) % Neutrophils # 8.1 H (1.3-7.7) k/uL Lymphocytes # 0.8 L (1.0-4.8) k/uL APTT 20.3 L (22.0-30.0) sec Sodium 135 L (137-145) mmol/L BUN 19 H (7-17) mg/dL Creatinine 1.10 H (0.52-1.04) mg/dL Glucose 113 H (74-99) mg/dL
[2022-11-07] MEDS: APIXABAN 5 MG TAB PO SCH (20:21)
[2022-11-07] MEDS: MONTELUKAST 10 MG TAB PO SCH (20:21)
[2022-11-07] MEDS: AZITHROMYCIN 500 MG in SODIUM CHLORIDE 0.9% 250 ML IVPB SCH (20:21)
[2022-11-07 22:44] LABS: Amorphous Sediment,Urine Occasional /hpf; Appearance,Urine Clear (Clear); Bacteria,Urine Occasional /hpf; Bilirubin,Urine Negative (Negative); Blood,Urine Trace (Negative); Color,Urine Light Yellow; Glucose,Urine (UA) Negative (Negative); Hyaline Casts,Urine 6 /lpf (0-2); Ketones,Urine Negative (Negative); Leukocyte Esterase,Urine Large (Negative); Nitrite,Urine Positive (Negative); PH, Urine 6.5 (5.0-8.0); Protein,Urine Negative (Negative); RBC,Urine 1 /hpf (0-5); Specific Gravity,Urine 1.012 (1.001-1.035); Squamous Epithelial Cell,Urine 1 /hpf (0-4); Urobilinogen,Urine <2.0 mg/dL (<2.0); WBC,Urine 52 /hpf (0-5)
[2022-11-08] MEDS: SODIUM CHLORIDE 0.9% 1,000 ML IV SCH ×2 (05:41→17:05)
[2022-11-08 08:44] LABS: Anisocytosis Slight; Basophils % (A) 0 %; Eosinophils # (A) 0.4 k/uL (0-0.7); Eosinophils % (A) 5 %; HCT 39.5 % (34.0-46.0); HGB 12.4 gm/dL (11.4-16.0); Lymphocytes # (A) 0.7 k/uL (1.0-4.8); Lymphocytes % (A) 9 %; MCH 27.4 pg (25.0-35.0); MCHC 31.5 g/dL (31.0-37.0); MCV 87.1 fL (80.0-100.0); Mean Platelet Volume 7.4; Monocytes # (A) 0.5 k/uL (0-1.0); Monocytes % (A) 6 %; Neutrophils # (A) 6.7 k/uL (1.3-7.7); Neutrophils % (A) 79 %; Platelet Count 248 k/uL (150-450); RBC 4.54 m/uL (3.80-5.40); WBC 8.5 k/uL (3.8-10.6)
[2022-11-08] MEDS: APIXABAN 5 MG TAB PO SCH (08:57)
[2022-11-08] MEDS: AZITHROMYCIN 500 MG in SODIUM CHLORIDE 0.9% 250 ML IVPB SCH (08:57)
[2022-11-08 09:25] LABS: African American GFR (CKD) 68 (>60 ml/min/1.73 sqM); Anion Gap 5 mmol/L; Blood Urea Nitrogen 15 mg/dL (7-17); Calcium 8.7 mg/dL (8.4-10.2); Carbon Dioxide 26 mmol/L (22-30); Chloride 105 mmol/L (98-107); Glucose 95 mg/dL (74-99); Magnesium 2.2 mg/dL (1.6-2.3); Non-African American GFR(CKD) 59 (>60 ml/min/1.73 sqM); Sodium 136 mmol/L (137-145)
--- NOTE | 2022-11-08 09:46 | P.CRDCN ---
History of Present Illness History of present illness: HISTORY OF PRESENT ILLNESS: This is a 81-year-old female with a past medical history significant for nonischemic cardiomyopathy, paroxysmal atrial fibrillation, hypertension, and previous cardioversion. Patient follows in the office with Dr. Eng. We have been asked to see the patient in consultation for bradycardia. Patient examined at the bedside. Patient initially went to urgent care today for a cough for the past week with yellow sputum production. The patient was found to be bradycardic and was sent to the emergency room for further evaluation. EKG on arrival revealed junctional rhythm with a heart rate of 31. Patient is prescribed amiodarone and metoprolol on an outpatient basis which are currently on hold. Patient states she just came home from [place] last week. She was feeling well at that time. Patient reports feeling dizzy and lightheaded on occasion but nothing specific. She denies any episodes of syncope. Her daughter is at the bedside and states that the patient has been very tired recently. * EKG reveals junctional rhythm with a heart rate of 31 * Chest xray nonspecific posterior lung infiltrate may be present. * Laboratory data: W BC 10.2. Hemoglobin 13.1. Platelet count 275. Sodium 135. Potassium 4.5. BUN 19. Creatinine 1.10. Troponin negative 1. * Current home cardiac medications include Aldactone 25 mg daily, losartan 25 mg daily, metoprolol tartrate 25 mg twice a day, amiodarone 200 mg daily, and Eliquis 5mg BID * Most recent echocardiogram obtained in March 2020 revealed ejection fraction 53% * Previous echocardiogram performed in March 2019 revealed ejection fraction 25% with mild to moderate pulmonary hypertension * Cardiac catheterization history: March 2021 revealing right dominant system, normal filling pressures, no gradient across aortic valve. Minor irregularities with no significant CAD noted. Nonischemic cardiomyopathy. * Patient underwent cardioversion with Dr. Eng in April 2021 with successful conversion to sinus bradycardia REVIEW OF SYSTEMS: At the time of my exam: CONSTITUTIONAL: Denies fever or chills. HEENT: Denies blurred vision, vision changes, or eye pain. Denies hemoptysis CARDIOVASCULAR: Denies chest pain. Denies orthopnea. Denies PND. Denies palpitations RESPIRATORY: Denies shortness of breath. GASTROINTESTINAL: Denies abdominal pain. Denies nausea or vomiting. HEMATOLOGIC: Denies bleeding disorders. GENITOURINARY: Denies any blood in urine. SKIN: Denies pruitis. Denies rash. PHYSICAL EXAM: VITAL SIGNS: Reviewed. GENERAL: Well-developed in no acute distress. HEENT: Head is normocephalic. Pupils are equal, round. Sclerae anicteric. Mucous membranes of the mouth are moist. Neck supple. No JVD or thyromegaly LUNGS: Respirations even and unlabored. Lungs essentially clear to auscultation bilaterally. HEART: Bradycardic. Regular rate and rhythm. S1 and S2 heard. ABDOMEN: Soft. Nondistended. Nontender. EXTREMITIES: Normal range of motion. No clubbing or cyanosis. Peripheral pulses intact. No lower extremity edema NEUROLOGIC: Awake and alert. Oriented x 3. ASSESSMENT: Possible pneumonia Urinary tract infection Shortness of breath with cough 1 week Junctional rhythm with possibility of complete heart block Paroxysmal atrial fibrillation History of cardioversion, March 2021 History of nonischemic cardiomyopathy, 25% with recovered EF, 53% in 2020 Hypertension PLAN: Obtain 2D echo to assess cardiac structure and function TSH pending Hold metoprolol and amiodarone Continue telemetry monitoring Continue to monitor heart rates for an additional 24 hours. If she remains significantly bradycardic, will plan for pacemaker implantation pending Dr. Eng's availability and timing Hold Eliquis Further recommendations pending patient course Nurse practitioner note has been reviewed by physician. Signing provider agrees with the documented findings, assessment, and plan of care. Past Medical History Past Medical History: Atrial Fibrillation, Heart Failure, Musculoskeletal Disorder, Osteoarthritis (OA) Additional Past Medical History / Comment(s): Hx Allergies, UTI's, osteoporosis, Rt hip OA. History of Any Multi-Drug Resistant Organisms: None Reported Past Surgical History: Adenoidectomy, Hysterectomy, Joint Replacement, Tonsillectomy Additional Past Surgical History / Comment(s): THBSO, Rhinoplasty. Colonoscopy. Samm Cataracts. Cardioversion. Total Rt Hip Past Anesthesia/Blood Transfusion Reactions: No Reported Reaction Past Psychological History: No Psychological Hx Reported Smoking Status: Never smoker Past Alcohol Use History: None Reported Past Drug Use History: None Reported - Past Family History Father Additional Family Medical History / Comment(s): Alcoholism Mother Family Medical History: CVA/TIA Additional Family Medical History / Comment(s): . Medications and Allergies Home Medications Medication Instructions Recorded Confirmed Type Montelukast [Singulair] 10 mg PO HS 03/14/19 11/07/22 History Apixaban [Eliquis] 5 mg PO BID #60 tab 03/18/19 11/07/22 Rx Losartan [Cozaar] 25 mg PO DAILY 03/27/19 11/07/22 History Spironolactone [Aldactone] 25 mg PO DAILY 12/16/20 11/07/22 History Amiodarone [Cordarone] 200 mg PO DAILY 04/11/21 11/07/22 History Cranberry Fruit Extract [Cranberry] 500 mg PO DAILY 11/07/22 11/07/22 History Estradiol Cream [Estrace Cream 0.5 applic VAGINAL DIRECTED 11/07/22 11/07/22 History 0.01%] Fesoterodine Fumarate 4 mg PO DAILY 11/07/22 11/07/22 History [Fesoterodine Fumarate ER] Metoprolol Tartrate [Lopressor] 25 mg PO BID 11/07/22 11/07/22 History Allergies Allergy/AdvReac Type Severity Reaction Status Date / Time Penicillins Allergy Unknown Verified 11/07/22 11:17 Physical Exam Vitals: Vital Signs Temp Pulse Resp BP Pulse Ox 11/07/22 13:00 28 L 19 119/88 98 11/07/22 12:30 29 L 18 110/81 96 11/07/22 12:00 30 L 18 80/67 97 11/07/22 11:30 30 L 19 117/74 97 11/07/22 10:50 98.1 F 33 L 22 98/45 96 Intake and Output 11/06/22 11/07/22 11/07/22 22:59 06:59 14:59 Other: Weight 99.79 kg Results 11/08/22 07:49 11/08/22 07:49 Cardiac Enzymes 11/07/22 11/07/22 Range/Units 11:04 11:04 AST 33 (14-36) U/L Troponin I <0.012 (0.000-0.034) ng/mL Coagulation 11/07/22 Range/Units 11:04 PT 10.9 (9.0-12.0) sec APTT 20.3 L (22.0-30.0) sec CBC 11/07/22 Range/Units 11:04 WBC 10.2 (3.8-10.6) k/uL RBC 4.62 (3.80-5.40) m/uL Hgb 13.1 (11.4-16.0) gm/dL Hct 39.0 (34.0-46.0) % Plt Count 275 (150-450) k/uL Comprehensive Metabolic Panel 11/07/22 Range/Units 11:04 Sodium 135 L (137-145) mmol/L Potassium 4.5 (3.5-5.1) mmol/L Chloride 103 (98-107) mmol/L Carbon Dioxide 22 (22-30) mmol/L BUN 19 H (7-17) mg/dL Creatinine 1.10 H (0.52-1.04) mg/dL Glucose 113 H (74-99) mg/dL Calcium 9.0 (8.4-10.2) mg/dL AST 33 (14-36) U/L ALT 21 (4-34) U/L Alkaline Phosphatase 92 (38-126) U/L Total Protein 6.5 (6.3-8.2) g/dL Albumin 3.6 (3.5-5.0) g/dL Current Medications Generic Name Dose Route Start Last Admin Trade Name Freq PRN Reason Stop Dose Admin Acetaminophen 650 mg 11/07/22 13:09 Acetaminophen Tab 325 Mg Tab PO Q6HR PRN Mild Pain or Fever > 100.5 Apixaban 5 mg 11/07/22 21:00 Apixaban 5 Mg Tab PO BID THIERNO Protocol Sodium Chloride 1,000 mls @ 75 mls/hr 11/07/22 13:15 11/07/22 13:27 Saline 0.9% IV 75 mls/hr .[id number] THIERNO Administration Montelukast Sodium 10 mg 11/07/22 21:00 Montelukast 10 Mg Tab PO HS THIERNO Naloxone HCl 0.2 mg 11/07/22 13:09 Naloxone 0.4 Mg/Ml 1 Ml Vial IV Q2M PRN Opioid Reversal Intake and Output 11/06/22 11/07/22 11/07/22 22:59 06:59 14:59 Other: Weight 99.79 kg Patient Weight 11/08/22 06:59 Weight 99.79 kg 11/07/22 11:04 11/07/22 11:04
--- NOTE | 2022-11-08 10:53 | P.PN ---
Subjective Progress Note Date: 11/08/22 Hospital Course: 81F with hx of COPD, Afib, HTN presenting with cough and SOB. In the ED, temp was 98.1F, pulse 33, RR 22, BP 98/45, 96% on RA. WBC 10.2, Hgb 13.1, plt 275, Na 135, K 4.5, Cr 1.1, Trop neg x1, respiratory viral panel negative. CXR shows developing posterior infarct. EKG shows bradycardia with junctional rhythm. Patient admitted for bradycardia and pneumonia, encephalopathy, and urinary tract infection. Currently on IV antibiotics. Cardiology following. Pertinent Imaging: Subjective: Pertinent positives and negatives as discussed above, a complete review of systems was performed and all other systems are negative. Vitals Signs Reviewed. General: nontoxic, no distress, appears at stated age Derm: warm, dry Head: atraumatic, normocephalic, symmetric Eyes: EOMI, no lid lag, anicteric sclera, pupils equal round reactive to light ENT: Nose and ears atraumatic Neck: No thyromegaly, supple Mouth: no lip lesion, mucus membranes moist Cardiovascular: S1S2 reg, bradycardia, no murmur, no edema Lungs: clear to auscultation bilateral, no rhonchi, no rales, no wheeze, no accessory muscle use Abdominal: soft, nontender to palpation, no guarding, no appreciable organomegaly Ext: no gross muscle atrophy, muscle strength muscle strength 5 out of 5 in all 4 extremities, no contractures Neuro: CN II-XII grossly intact Psych: Alert, oriented x2, appropriate affect Data Reviewed Today: Pertinent Labs: WBC 8.5, hemoglobin 12.4, sodium 136, creatinine 0.92, magnesium 2.2, TSH pending, urinalysis positive for nitrites and large leukocyte esterase Imaging: No new imaging Assessment and Plan: Urinary tract infection Community acquired pneumonia Bradycardia, junctional rhythm with possibility of complete heart block Acute metabolic encephalopathy Hypotension Paroxysmal Atrial fibrillation, history of cardioversion History of nonischemic cardiomyopathy with recovered LVEF History of hypertension - blood cx, sputum cx pending -Pro calcitonin is negative, however clinically presenting with pneumonia - IV ceftriaxone and azithromycin - cardiology note reviewed, monitor heart rate for another 24 hours, will possibly need permanent pacemaker, hold Eliquis - TSH pending - trop negative - hold metoprolol, and amio - encephalopathy likely in the setting of acute illness - hold losartan and aldactone - echo pending DVT ppx: SCDs Code status: Full code Anticipated discharge place: Pending clinical course Anticipated discharge time: Pending clinical course Patient is critically ill, prognosis guarded. Objective - Vital Signs Vital signs: Vital Signs Temp 97.9 F 11/08/22 07:57 Pulse 38 L 11/08/22 08:00 Resp 19 11/08/22 07:57 BP 156/69 11/08/22 07:57 Pulse Ox 95 11/08/22 07:57 FiO2 Intake & Output 11/07/22 11/08/22 11/08/22 18:59 06:59 18:59 Intake Total 100 Balance 100 Weight 99.79 kg Intake: Oral 100 Other: Voiding Method External Catheter External Catheter External Catheter # Voids 1 - Labs CBC & Chem 7: 11/08/22 07:49 11/08/22 07:49 Labs: Abnormal Lab Results - Last 24 Hours (Table) 11/07/22 11/07/22 11/07/22 Range/Units 11:04 11:04 11:04 RDW 16.1 H (11.5-15.5) % Neutrophils # 8.1 H (1.3-7.7) k/uL Lymphocytes # 0.8 L (1.0-4.8) k/uL APTT 20.3 L (22.0-30.0) sec Sodium 135 L (137-145) mmol/L BUN 19 H (7-17) mg/dL Creatinine 1.10 H (0.52-1.04) mg/dL Glucose 113 H (74-99) mg/dL Urine Blood (Negative) Urine Nitrite (Negative) Ur Leukocyte Esterase (Negative) Urine WBC (0-5) /hpf Amorphous Sediment (None) /hpf Urine Bacteria (None) /hpf Hyaline Casts (0-2) /lpf 11/07/22 11/08/22 11/08/22 Range/Units 21:30 07:49 07:49 RDW 16.0 H (11.5-15.5) % Neutrophils # (1.3-7.7) k/uL Lymphocytes # 0.7 L (1.0-4.8) k/uL APTT (22.0-30.0) sec Sodium 136 L (137-145) mmol/L BUN (7-17) mg/dL Creatinine (0.52-1.04) mg/dL Glucose (74-99) mg/dL Urine Blood Trace H (Negative) Urine Nitrite Positive H (Negative) Ur Leukocyte Esterase Large H (Negative) Urine WBC 52 H (0-5) /hpf Amorphous Sediment Occasional H (None) /hpf Urine Bacteria Occasional H (None) /hpf Hyaline Casts 6 H (0-2) /lpf
[2022-11-08 17:01] VITALS: RESP 16
[2022-11-08] MEDS: MONTELUKAST 10 MG TAB PO SCH (20:39)
[2022-11-09] MEDS: SODIUM CHLORIDE 0.9% 1,000 ML IV SCH (08:07)
[2022-11-09] MEDS: AZITHROMYCIN 500 MG in SODIUM CHLORIDE 0.9% 250 ML IVPB SCH (08:07)
--- NOTE | 2022-11-09 12:27 | P.PN ---
Subjective HISTORY OF PRESENT ILLNESS: This is a 81-year-old female with a past medical history significant for nonischemic cardiomyopathy, paroxysmal atrial fibrillation, hypertension, and previous cardioversion. Patient follows in the office with Dr. Eng. We have been asked to see the patient in consultation for bradycardia. Patient examined at the bedside. Patient initially went to urgent care today for a cough for the past week with yellow sputum production. The patient was found to be bradycardic and was sent to the emergency room for further evaluation. EKG on arrival revealed junctional rhythm with a heart rate of 31. Patient is prescr ibed amiodarone and metoprolol on an outpatient basis which are currently on hold. Patient states she just came home from [place] last week. She was feeling well at that time. Patient reports feeling dizzy and lightheaded on occasion but nothing specific. She denies any episodes of syncope. Her daughter is at the bedside and states that the patient has been very tired recently. * EKG reveals junctional rhythm with a heart rate of 31 * Chest xray nonspecific posterior lung infiltrate may be present. * Laboratory data: W BC 10.2. Hemoglobin 13.1. Platelet count 275. Sodium 135. Potassium 4.5. BUN 19. Creatinine 1.10. Troponin negative 1. * Current home cardiac medications include Aldactone 25 mg daily, losartan 25 mg daily, metoprolol tartrate 25 mg twice a day, amiodarone 200 mg daily, and Eliquis 5mg BID * Most recent echocardiogram obtained in March 2020 revealed ejection fraction 53% * Previous echocardiogram performed in March 2019 revealed ejection fraction 25% with mild to moderate pulmonary hypertension * Cardiac catheterization history: March 2021 revealing right dominant system, normal filling pressures, no gradient across aortic valve. Minor irregularities with no significant CAD noted. Nonischemic cardiomyopathy. * Patient underwent cardioversion with Dr. Eng in April 2021 with successful conversion to sinus bradycardia 11/09 Seen and examined. Patient denies any chest pain or pressure. No shortness breath. Her metoprolol and amiodarone have been discontinued and her anticoagulation is on hold. Case discussed with Dr. Eng who is hopeful that heart rates will improve with discontinuation of AV zandra blocking agents. Heart rates mainly in the 40s to 50s with paroxysmal A. fib and sinus bradycardia. PHYSICAL EXAM: VITAL SIGNS: Reviewed. GENERAL: Well-developed in no acute distress. HEENT: Head is normocephalic. Pupils are equal, round. Sclerae anicteric. Mucous membranes of the mouth are moist. Neck supple. No JVD or thyromegaly LUNGS: Respirations even and unlabored. Lungs essentially clear to auscultation bilaterally. HEART: Bradycardic. Regular rate and rhythm. S1 and S2 heard. ABDOMEN: Soft. Nondistended. Nontender. EXTREMITIES: Normal range of motion. No clubbing or cyanosis. Peripheral pulses intact. No lower extremity edema NEUROLOGIC: Awake and alert. Oriented x 3. ASSESSMENT: Possible pneumonia Urinary tract infection Shortness of breath with cough 1 week Junctional rhythm with possibility of complete heart block Paroxysmal atrial fibrillation History of cardioversion, March 2021 History of nonischemic cardiomyopathy, 25% with recovered EF, 53% in 2020 Hypertension PLAN: Await 2-D echo. TSH normal. Continue hold amiodarone and metoprolol. Likely give a full 2-3 days and if heart rates improve with likely discharge home with a monitor. If however continue to have significant bradycardia possible pacemaker over the or Saturday. Continue to monitor response of holding amiodarone which can take some time to come out of her system. Objective - Vital Signs Vital signs: Vital Signs Temp 97.7 F 11/09/22 11:15 Pulse 44 L 11/09/22 11:15 Resp 16 11/09/22 11:15 BP 155/67 11/09/22 11:15 Pulse Ox 98 11/09/22 11:15 FiO2 Intake & Output 11/08/22 11/09/22 11/09/22 18:59 06:59 18:59 Output Total 700 1300 Balance -700 -1300 Output: Urine 700 1300 Other: Voiding Method External Catheter External Catheter External Catheter - Labs CBC & Chem 7: 11/08/22 07:49 11/08/22 07:49 Labs: Microbiology - Last 24 Hours (Table) 11/07/22 14:00 Blood Culture - Preliminary Blood 11/07/22 14:05 Blood Culture - Preliminary Blood
--- NOTE | 2022-11-09 14:05 | CDI ---
Documentation Clarification Form Date: 11/09/2022 01:47:10 PM From: Georgia Nevarez RN CCDS Phone: [phone] Admit Date: 11/07/2022 01:09:00 PM Patient Name: Stephanie Alonzo Visit Number: [id number] Discharge Date: ATTENTION: The Clinical Documentation Specialists (CDI) and [facility] Coding Staff appreciate your assistance in clarifying documentation. Please respond to the clarification below the line at the bottom and electronically sign. The CDI & [facility] Coding staff will review the response and follow-up if needed. Please note: Queries are made part of the Legal Health Record. If you have any questions, please contact the author of this message via ITS. Dr. Wally Velázquez Your patient has the documented diagnosis of unspecified CHF 11/07, H&P. Additional information regarding the type, acuity of CHF is requested. History/Risk Factors: 81 year old female presents to the ED with increased confusion and persistently worsening cough which is productive. Medical History: Heart Failure, Atiral Fibrillation and COPD. H&P, 11/07. Clinical Indicators: VS/Pulse OX: BP 98/45; HR 33; Temp 98.1 F oral; RR 22; SpO2 96% room air Echocardiogram Results: 01/15/2020 Left ventricular systolic function is severely impaired with EF 20-25%. Right ventricle is mildly enlarged LA is mildly dilated. Moderate mitral regurgitation, moderate pulmonary hypertension. Chest X Ray: 11/07 Nonspecific posterior lung infiltrate may be present. Home Medications: Lopressor 25mg PO BID; Aldactone 25mg PO Daily Treatment: Hold Metoprolol and Aldactone, pending ECHO In your professional opinion, can you please clarify the acuity and type of CHF if known? [ x ] Chronic Systolic Heart Failure (reduced EF) [ ] Other, please specify [ ] Unable to determine (Template Last Revised: April 2020) MTDD
--- NOTE | 2022-11-09 14:10 | P.PN ---
Subjective Progress Note Date: 11/09/22 Hospital Course: 81F with hx of COPD, Afib, HTN presenting with cough and SOB. In the ED, temp was 98.1F, pulse 33, RR 22, BP 98/45, 96% on RA. WBC 10.2, Hgb 13.1, plt 275, Na 135, K 4.5, Cr 1.1, Trop neg x1, respiratory viral panel negative. CXR shows developing posterior infarct. EKG shows bradycardia with junctional rhythm. Patient admitted for bradycardia and pneumonia, encephalopathy, and urinary tract infection. Currently on IV antibiotics. Cardiology following. TSH normal, monitor over the weekend for heart rate improvement. Subjective: Patient seen and examined at bedside. No acute events overnight. Respiratory symptoms improving. Pertinent positives and negatives as discussed above, a complete review of systems was performed and all other systems are negative. Vitals Signs Reviewed. General: nontoxic, no distress, appears at stated age Derm: warm, dry Head: atraumatic, normocephalic, symmetric Eyes: EOMI, no lid lag, anicteric sclera, pupils equal round reactive to light ENT: Nose and ears atraumatic Neck: No thyromegaly, supple Mouth: no lip lesion, mucus membranes moist Cardiovascular: S1S2 reg, bradycardia, no murmur, no edema Lungs: clear to auscultation bilateral, no rhonchi, no rales, no wheeze, no accessory muscle use Abdominal: soft, nontender to palpation, no guarding, no appreciable organomegaly Ext: no gross muscle atrophy, muscle strength muscle strength 5 out of 5 in all 4 extremities, no contractures Neuro: CN II-XII grossly intact Psych: Alert, oriented x2, appropriate affect Data Reviewed Today: Pertinent Labs: TSH 2.85 Imaging: EKG independently interpreted from this morning, shows bradycardia, junctional rhythm Assessment and Plan: Urinary tract infection Community acquired pneumonia, improved Bradycardia, junctional rhythm with possibility of complete heart block Acute metabolic encephalopathy, resolved Hypotension, resolved Paroxysmal Atrial fibrillation, history of cardioversion History of nonischemic cardiomyopathy with recovered LVEF History of hypertension -Blood cultures negative growth to date, urine cultures pending -Completed azithromycin, continue IV ceftriaxone - cardiology note reviewed, continue to hold Eliquis, continue to hold metoprolol and amiodarone, monitor over the weekend -Restarted losartan and aldactone - echo pending DVT ppx: SCDs Code status: Full code Anticipated discharge place: Pending clinical course Anticipated discharge time: Pending clinical course Objective - Vital Signs Vital signs: Vital Signs Temp 97.7 F 11/09/22 11:15 Pulse 44 L 11/09/22 11:15 Resp 16 11/09/22 11:15 BP 155/67 11/09/22 11:15 Pulse Ox 98 11/09/22 11:15 FiO2 Intake & Output 11/08/22 11/09/22 11/09/22 18:59 06:59 18:59 Intake Total 118 Output Total 700 1300 650 Balance -700 -6983 -046 Intake: Oral 118 Output: Urine 700 1300 650 Other: Voiding Method External Catheter External Catheter Toilet # Voids 1 # Bowel Movements 1 - Labs CBC & Chem 7: 11/08/22 07:49 11/08/22 07:49 Labs: Microbiology - Last 24 Hours (Table) 11/07/22 14:00 Blood Culture - Preliminary Blood 11/07/22 14:05 Blood Culture - Preliminary Blood
--- NOTE | 2022-11-09 17:53 | CA ---
Transthoracic Echo Report Name: Stephanie Alonzo Age: 81 Gender: F : 1940 Exam Date: 11/08/2022 15:30 Exam Location: [facility] Ht (in): 66 Wt (lb): 220 Ordering Physician: Wally Velázquez MD Attending/Referring Phys: Mailing Machine Operator Haja Harp Procedure CPT: Indications: Bradycardia Cardiac Hx: Technical Quality: Fair Contrast 1: Total Dose (mL): Contrast 2: Total Dose (mL): MEASUREMENTS (Male / Female) Normal Values 2D ECHO LV Diastolic Diameter PLAX 5.5 cm 4.2 - 5.9 / 3.9 - 5.3 cm LV Systolic Diameter PLAX 2.6 cm IVS Diastolic Thickness 1.0 cm 0.6 - 1.0 / 0.6 - 0.9 cm LVPW Diastolic Thickness 1.3 cm 0.6 - 1.0 / 0.6 - 0.9 cm LV Relative Wall Thickness 0.4 RV Internal Dim ED PLAX 3.4 cm LVOT Diameter 2.1 cm Aortic Root Diameter 2.7 cm LA Systolic Diameter LX 2.5 cm 3.0 - 4.0 / 2.7 - 3.8 cm LV Diastolic Volume MOD BP 70.1 cm??? 67 - 155 / 56 - 104 cm??? LV Systolic Volume MOD BP 41.4 cm??? 22 - 58 / 19 - 49 cm??? LV Ejection Fraction MOD BP 41.0 % >= 55 % LV Cardiac Index MOD BP 431.8 cm???/min???m??? LV Diastolic Volume MOD 4C 63.1 cm??? LV Systolic Volume MOD 4C 44.2 cm??? LV Ejection Fraction MOD 4C 29.9 % LV Cardiac Index MOD 4C 283.6 cm???/min???m??? LV Diastolic Length 4C 7.4 cm LV Systolic Length 4C 7.1 cm LV Diastolic Volume MOD 2C 76.7 cm??? LV Systolic Volume MOD 2C 32.4 cm??? LV Ejection Fraction MOD 2C 57.8 % LV Cardiac Index MOD 2C 665.5 cm???/min???m??? LV Diastolic Length 2C 7.2 cm LV Systolic Length 2C 5.9 cm LA Volume 61.4 cm??? 18 - 58 / 22 - 52 cm??? DOPPLER AV Peak Velocity 144.3 cm/s AV Peak Gradient 8.3 mmHg LVOT Peak Velocity 89.7 cm/s LVOT Peak Gradient 3.2 mmHg AV Area Cont Eq pk 2.1 cm??? MV Peak Velocity 125.3 cm/s MV Peak Gradient 6.3 mmHg MV Mean Velocity 50.0 cm/s MV Mean Gradient 1.4 mmHg MV Velocity Time Integral 41.7 cm MR Peak Velocity 441.1 cm/s MR Peak Gradient 77.8 mmHg Mitral E Point Velocity 121.6 cm/s Mitral A Point Velocity 40.6 cm/s Mitral E to A Ratio 3.0 MV Deceleration Time 169.6 ms MV E' Velocity 11.3 cm/s Mitral E to MV E' Ratio 10.8 TR Peak Velocity 281.6 cm/s TR Peak Gradient 31.7 mmHg Right Ventricular Systolic Press 37.0 mmHg PV Peak Velocity 128.1 cm/s PV Peak Gradient 6.6 mmHg FINDINGS Left Ventricle Normal LV size and wall thickness. Left ventricular ejection fraction is estimated at _50-55 %. No obvious regional wall motion abnormality Right Ventricle Normal right ventricular size. RVSP= 42mmHg. Right Atrium Normal right atrial size. RA area= 18.1cm2 Left Atrium Normal left atrial size. LA volume index= 30ml/m2 Mitral Valve Structurally normal mitral valve. Aortic Valve Trileaflet aortic valve. No aortic valve stenosis or regurgitation. Tricuspid Valve Structurally normal tricuspid valve. Mild TR. Pulmonic Valve Pulmonic valve not well visualized. Mild PI. Pericardium Normal pericardium. Aorta Normal size aortic root . CONCLUSIONS Left ventricular ejection fraction is estimated at _50-55 %. No obvious regional wall motion abnormality. No significant valvular dysfunction No significant chamber size abnormality Previewed by: Dr Jewel Espinal (Electronically Signed) Final Date: 09 November 2022 17:53
[2022-11-09] MEDS: MONTELUKAST 10 MG TAB PO SCH (21:21)
[2022-11-10] MEDS ORDERED: hydrALAZINE HCL 20 MG/ML 1 ML VIAL IVP STA (05:00)
[2022-11-10] MEDS: SPIRONOLACTONE 25 MG TAB PO SCH (07:39)
[2022-11-10] MEDS ORDERED: LOSARTAN 25 MG TAB PO SCH (09:00)
[2022-11-10] MEDS ORDERED: LOSARTAN 25 MG TAB PO STA (10:48)
--- NOTE | 2022-11-10 10:48 | P.PN ---
Subjective HISTORY OF PRESENT ILLNESS: This is a 81-year-old female with a past medical history significant for nonischemic cardiomyopathy, paroxysmal atrial fibrillation, hypertension, and previous cardioversion. Patient follows in the office with Dr. Eng. We have been asked to see the patient in consultation for bradycardia. Patient examined at the bedside. Patient initially went to urgent care today for a cough for the past week with yellow sputum production. The patient was found to be bradycardic and was sent to the emergency room for further evaluation. EKG on arrival revealed junctional rhythm with a heart rate of 31. Patient is prescr ibed amiodarone and metoprolol on an outpatient basis which are currently on hold. Patient states she just came home from [place] last week. She was feeling well at that time. Patient reports feeling dizzy and lightheaded on occasion but nothing specific. She denies any episodes of syncope. Her daughter is at the bedside and states that the patient has been very tired recently. * EKG reveals junctional rhythm with a heart rate of 31 * Chest xray nonspecific posterior lung infiltrate may be present. * Laboratory data: W BC 10.2. Hemoglobin 13.1. Platelet count 275. Sodium 135. Potassium 4.5. BUN 19. Creatinine 1.10. Troponin negative 1. * Current home cardiac medications include Aldactone 25 mg daily, losartan 25 mg daily, metoprolol tartrate 25 mg twice a day, amiodarone 200 mg daily, and Eliquis 5mg BID * Most recent echocardiogram obtained in March 2020 revealed ejection fraction 53% * Previous echocardiogram performed in March 2019 revealed ejection fraction 25% with mild to moderate pulmonary hypertension * Cardiac catheterization history: March 2021 revealing right dominant system, normal filling pressures, no gradient across aortic valve. Minor irregularities with no significant CAD noted. Nonischemic cardiomyopathy. * Patient underwent cardioversion with Dr. Eng in April 2021 with successful conversion to sinus bradycardia 11/09 Seen and examined. Patient denies any chest pain or pressure. No shortness breath. Her metoprolol and amiodarone have been discontinued and her anticoagulation is on hold. Case discussed with Dr. Eng who is hopeful that heart rates will improve with discontinuation of AV zandra blocking agents. Heart rates mainly in the 40s to 50s with paroxysmal A. fib and sinus bradycardia. 11/10 Patient seen and examined. Patient mostly in sinus rhythm and occasionally A. fib however heart rates somewhat improved up into the 50s to 60s. Per report of heart rates down in the 30s after patient got up from a shower however on pers onal review only appears to be artifact. Denies any shortness breath. Blood pressure had increased up to 190s last night and was given hydralazine and is continued on losartan. PHYSICAL EXAM: VITAL SIGNS: Reviewed. GENERAL: Well-developed in no acute distress. HEENT: Head is normocephalic. Pupils are equal, round. Sclerae anicteric. Mucous membranes of the mouth are moist. Neck supple. No JVD or thyromegaly LUNGS: Respirations even and unlabored. Lungs essentially clear to auscultation bilaterally. HEART: Bradycardic. Regular rate and rhythm. S1 and S2 heard. ABDOMEN: Soft. Nondistended. Nontender. EXTREMITIES: Normal range of motion. No clubbing or cyanosis. Peripheral pulses intact. No lower extremity edema NEUROLOGIC: Awake and alert. Oriented x 3. ASSESSMENT: Possible pneumonia Urinary tract infection Shortness of breath with cough 1 week Junctional rhythm with possibility of complete heart block, improving off Amio and Metoprolol Paroxysmal atrial fibrillation History of cardioversion, March 2021 History of nonischemic cardiomyopathy, 25% with recovered EF, 53% in 2020 Hypertension PLAN: Echo shows predominantly controlled EF 50-55%. Patient's heart rates p redominantly are improving. Report of lower heart rates in the 30s however appears only artifact and overall heart rates better. Monitor for at least another 24 hours. Possible discharge tomorrow however family concerned with setting up an event monitor which likely will not be able to be facilitated tomorrow. Possible discharge Saturday or Saturday depending on further progress. Increase Losartan given elevated BP's. Objective - Vital Signs Vital signs: Vital Signs Temp 98.4 F 11/10/22 07:34 Pulse 62 11/10/22 07:34 Resp 16 11/10/22 07:34 BP 150/69 11/10/22 07:34 Pulse Ox 100 11/10/22 09:14 FiO2 Intake & Output 11/09/22 11/10/22 11/10/22 18:59 06:59 18:59 Intake Total 318 240 Output Total 650 800 Balance -332 -560 Intake: Oral 318 240 Output: Urine 650 800 Other: Voiding Method Toilet Toilet Toilet # Voids 1 # Bowel Movements 1 - Labs CBC & Chem 7: 11/08/22 07:49 11/08/22 07:49 Labs: Microbiology - Last 24 Hours (Table) 11/08/22 21:00 Urine Culture - Final Urine,Voided 11/07/22 14:00 Blood Culture - Preliminary Blood 11/07/22 14:05 Blood Culture - Preliminary Blood
--- NOTE | 2022-11-10 12:56 | P.PN ---
Subjective Progress Note Date: 11/10/22 Hospital Course: 81F with hx of COPD, Afib, HTN presenting with cough and SOB. In the ED, temp was 98.1F, pulse 33, RR 22, BP 98/45, 96% on RA. WBC 10.2, Hgb 13.1, plt 275, Na 135, K 4.5, Cr 1.1, Trop neg x1, respiratory viral panel negative. CXR shows developing posterior infarct. EKG shows bradycardia with junctional rhythm. Patient admitted for bradycardia and pneumonia, encephalopathy, and urinary tract infection. Currently on IV antibiotics. Cardiology following. TSH normal, monitor over the weekend for heart rate improvement. Heart rate has been improving Subjective: Patient seen and examined at bedside. No acute events overnight. Pertinent positives and negatives as discussed above, a complete review of systems was performed and all other systems are negative. Vitals Signs Reviewed. General: nontoxic, no distress, appears at stated age Derm: warm, dry Head: atraumatic, normocephalic, symmetric Eyes: EOMI, no lid lag, anicteric sclera, pupils equal round reactive to light ENT: Nose and ears atraumatic Neck: No thyromegaly, supple Mouth: no lip lesion, mucus membranes moist Cardiovascular: S1S2 reg, bradycardia, no murmur, no edema Lungs: clear to auscultation bilateral, no rhonchi, no rales, no wheeze, no accessory muscle use Abdominal: soft, nontender to palpation, no guarding, no appreciable organomegaly Ext: no gross muscle atrophy, muscle strength muscle strength 5 out of 5 in all 4 extremities, no contractures Neuro: CN II-XII grossly intact Psych: Alert, oriented x2, appropriate affect Data Reviewed Today: Pertinent Labs: No new labs Imaging: No new imaging Assessment and Plan: Urinary tract infection Community acquired pneumonia, improved Bradycardia, junctional rhythm with possibility of complete heart block Acute metabolic encephalopathy, resolved Hypotension, resolved Paroxysmal Atrial fibrillation, history of cardioversion History of nonischemic cardiomyopathy with recovered LVEF History of hypertension -Blood cultures negative growth to date, urine cultures growing genital cora, but was taken after antibiotics started -Completed azithromycin, continue IV ceftriaxone for total of 5 days - cardiology note reviewed, continue to hold Eliquis, continue to hold metoprolol and amiodarone, monitor over the weekend, possibly discharge home with event monitor -Continue Aldactone, uncertain increased -Echocardiogram shows LVEF 50-55% DVT ppx: SCDs Code status: Full code Anticipated discharge place: Pending clinical course Anticipated discharge time: Pending clinical course Objective - Vital Signs Vital signs: Vital Signs Temp 97.8 F 11/10/22 11:26 Pulse 62 11/10/22 11:26 Resp 16 11/10/22 11:26 BP 128/67 11/10/22 11:26 Pulse Ox 97 11/10/22 11:26 FiO2 Intake & Output 11/09/22 11/10/22 11/10/22 18:59 06:59 18:59 Intake Total 318 240 Output Total 650 800 Balance -332 -560 Intake: Oral 318 240 Output: Urine 650 800 Other: Voiding Method Toilet Toilet Toilet # Voids 1 # Bowel Movements 1 - Labs CBC & Chem 7: 11/08/22 07:49 11/08/22 07:49 Labs: Microbiology - Last 24 Hours (Table) 11/08/22 21:00 Urine Culture - Final Urine,Voided 11/07/22 14:00 Blood Culture - Preliminary Blood 11/07/22 14:05 Blood Culture - Preliminary Blood
[2022-11-10] MEDS: MONTELUKAST 10 MG TAB PO SCH (20:50)
[2022-11-11] MEDS: SPIRONOLACTONE 25 MG TAB PO SCH (07:52)
[2022-11-11 07:59] VITALS: BP 146/72; PULSE 63; TEMP 97.7
[2022-11-11] MEDS ORDERED: LOSARTAN 50 MG TAB PO SCH (09:00)
--- NOTE | 2022-11-11 11:32 | P.PN ---
Subjective HISTORY OF PRESENT ILLNESS: This is a 81-year-old female with a past medical history significant for nonischemic cardiomyopathy, paroxysmal atrial fibrillation, hypertension, and previous cardioversion. Patient follows in the office with Dr. Eng. We have been asked to see the patient in consultation for bradycardia. Patient examined at the bedside. Patient initially went to urgent care today for a cough for the past week with yellow sputum production. The patient was found to be bradycardic and was sent to the emergency room for further evaluation. EKG on arrival revealed junctional rhythm with a heart rate of 31. Patient is prescr ibed amiodarone and metoprolol on an outpatient basis which are currently on hold. Patient states she just came home from [place] last week. She was feeling well at that time. Patient reports feeling dizzy and lightheaded on occasion but nothing specific. She denies any episodes of syncope. Her daughter is at the bedside and states that the patient has been very tired recently. * EKG reveals junctional rhythm with a heart rate of 31 * Chest xray nonspecific posterior lung infiltrate may be present. * Laboratory data: W BC 10.2. Hemoglobin 13.1. Platelet count 275. Sodium 135. Potassium 4.5. BUN 19. Creatinine 1.10. Troponin negative 1. * Current home cardiac medications include Aldactone 25 mg daily, losartan 25 mg daily, metoprolol tartrate 25 mg twice a day, amiodarone 200 mg daily, and Eliquis 5mg BID * Most recent echocardiogram obtained in March 2020 revealed ejection fraction 53% * Previous echocardiogram performed in March 2019 revealed ejection fraction 25% with mild to moderate pulmonary hypertension * Cardiac catheterization history: March 2021 revealing right dominant system, normal filling pressures, no gradient across aortic valve. Minor irregularities with no significant CAD noted. Nonischemic cardiomyopathy. * Patient underwent cardioversion with Dr. Eng in April 2021 with successful conversion to sinus bradycardia 11/09 Seen and examined. Patient denies any chest pain or pressure. No shortness breath. Her metoprolol and amiodarone have been discontinued and her anticoagulation is on hold. Case discussed with Dr. Eng who is hopeful that heart rates will improve with discontinuation of AV zandra blocking agents. Heart rates mainly in the 40s to 50s with paroxysmal A. fib and sinus bradycardia. 11/10 Patient seen and examined. Patient mostly in sinus rhythm and occasionally A. fib however heart rates somewhat improved up into the 50s to 60s. Per report of heart rates down in the 30s after patient got up from a shower however on pers onal review only appears to be artifact. Denies any shortness breath. Blood pressure had increased up to 190s last night and was given hydralazine and is continued on losartan. 11/11 Patient seen and examined. Patient overall feeling fairly well. No significant bradycardic episodes. Does still have somewhat of a cough. No lightheadedness. PHYSICAL EXAM: VITAL SIGNS: Reviewed. GENERAL: Well-developed in no acute distress. HEENT: Head is normocephalic. Pupils are equal, round. Sclerae anicteric. Mucous membranes of the mouth are moist. Neck supple. No JVD or thyromegaly LUNGS: Respirations even and unlabored. Lungs essentially clear to auscultation bilaterally. HEART: Bradycardic. Regular rate and rhythm. S1 and S2 heard. ABDOMEN: Soft. Nondistended. Nontender. EXTREMITIES: Normal range of motion. No clubbing or cyanosis. Peripheral pulses intact. No lower extremity edema NEUROLOGIC: Awake and alert. Oriented x 3. ASSESSMENT: Possible pneumonia Urinary tract infection Shortness of breath with cough 1 week Junctional rhythm with possibility of complete heart block, improving off Amio and Metoprolol Paroxysmal atrial fibrillation History of cardioversion, March 2021 History of nonischemic cardiomyopathy, 25% with recovered EF, 53% in 2020 Hypertension PLAN: Heart rates appear better controlled off of the amiodarone and metoprolol. Appears stable for discharge home on increased dose of losartan. Okay to restart anticoagulation. Patient can set up outpatient event monitor. Follow- up in cardiology office within the week. Objective - Vital Signs Vital signs: Vital Signs Temp 97.7 F 11/11/22 07:48 Pulse 63 11/11/22 07:48 Resp 16 11/11/22 07:48 BP 146/72 11/11/22 07:48 Pulse Ox 93 L 11/11/22 07:48 FiO2 Intake & Output 11/10/22 11/11/22 11/11/22 18:59 06:59 18:59 Intake Total 440 240 Output Total 800 1000 900 Balance -360 -1000 -660 Weight 109.5 kg Intake: Oral 440 240 Output: Urine 800 1000 900 Other: Voiding Method Toilet Toilet Toilet # Voids 1 # Bowel Movements 1 - Labs CBC & Chem 7: 11/08/22 07:49 11/08/22 07:49 Labs: Microbiology - Last 24 Hours (Table) 11/07/22 14:00 Blood Culture - Preliminary Blood 11/07/22 14:05 Blood Culture - Preliminary Blood 11/08/22 21:00 Urine Culture - Final Urine,Voided
--- NOTE | 2022-11-11 11:54 | P.DS ---
Providers Date of admission: 11/07/22 13:09 Expected date of discharge: 11/11/22 Attending physician: Giuliana Larios DO Consults: 11/07/22 13:09 Consult Physician Urgent Consulting Provider: Francisco Drew Consult Reason/Comments: Bradycardia Do you want consulting provider notified?: Already Contacted Primary care physician: Addi Craig MD Hospital Course: Discharge Diagnosis: Urinary tract infection Community acquired pneumonia, improved Bradycardia, likely secondary to medications Acute metabolic encephalopathy, resolved Hypotension, resolved Paroxysmal Atrial fibrillation, history of cardioversion History of nonischemic cardiomyopathy with recovered LVEF Uncontrolled hypertension Hospital Course: 81F with hx of COPD, Afib, HTN presenting with cough and SOB. In the ED, temp was 98.1F, pulse 33, RR 22, BP 98/45, 96% on RA. WBC 10.2, Hgb 13.1, plt 275, Na 135, K 4.5, Cr 1.1, Trop neg x1, respiratory viral panel negative. CXR shows developing posterior infarct. EKG shows bradycardia with junctional rhythm. Patient admitted for bradycardia and pneumonia, encephalopathy, and urinary tract infection. Symptoms improved with IV antibiotics. Cardiology following. TSH normal, heart rate improved after holding metoprolol and amiodarone. Losartan increased for uncontrolled hypertension. Patient being discharged home with close follow-up with cardiology Patient seen and examined at bedside. Vital signs reviewed and stable. General: nontoxic, no distress, appears at stated age Derm: warm, dry Head: atraumatic, normocephalic, symmetric Eyes: EOMI, no lid lag, anicteric sclera Mouth: no lip lesion, mucus membranes moist Cardiovascular: S1S2 reg, no murmur Lungs: CTA bilateral, no rhonchi, no rales , no accessory muscle use Abdominal: soft, nontender to palpation, no guarding, no appreciable organomegaly Ext: no gross muscle atrophy, no edema, no contractures Neuro: CN II-XI grossly intact, no focal neuro deficits Psych: Alert, oriented, appropriate affect A total of 33 minutes of time were spent preparing this complex discharge summary. Patient was discharged on 11/11/22 at 10:55. Patient Condition at Discharge: Stable Plan - Discharge Summary Discharge Rx Participant: Yes New Discharge Prescriptions: New Cefdinir 300 mg PO Q12HR #2 cap Losartan [Cozaar] 50 mg PO DAILY #60 tab Continue Montelukast [Singulair] 10 mg PO HS Apixaban [Eliquis] 5 mg PO BID #60 tab Spironolactone [Aldactone] 25 mg PO DAILY Estradiol Cream [Estrace Cream 0.01%] 0.5 applic VAGINAL DIRECTED Fesoterodine Fumarate [Fesoterodine Fumarate ER] 4 mg PO DAILY Cranberry Fruit Extract [Cranberry] 500 mg PO DAILY Discontinued Losartan [Cozaar] 25 mg PO DAILY Amiodarone [Cordarone] 200 mg PO DAILY Metoprolol Tartrate [Lopressor] 25 mg PO BID Discharge Medication List Montelukast [Singulair] 10 mg PO HS 03/14/19 [History] Apixaban [Eliquis] 5 mg PO BID #60 tab 03/18/19 [Rx] Spironolactone [Aldactone] 25 mg PO DAILY 12/16/20 [History] Cranberry Fruit Extract [Cranberry] 500 mg PO DAILY 11/07/22 [History] Estradiol Cream [Estrace Cream 0.01%] 0.5 applic VAGINAL DIRECTED 11/07/22 [History] Fesoterodine Fumarate [Fesoterodine Fumarate ER] 4 mg PO DAILY 11/07/22 [History] Cefdinir 300 mg PO Q12HR #2 cap 11/11/22 [Rx] Losartan [Cozaar] 50 mg PO DAILY #60 tab 11/11/22 [Rx] Follow up Appointment(s)/Referral(s): Francisco Drew DO [STAFF PHYSICIAN] - 1 Week Addi Craig MD [Primary Care Provider] - 1-2 days [facility], [NON-STAFF] - Patient Instructions/Handouts: Urinary Tract Infection in Women (DC), Community Acquired Pneumonia (DC), Bradycardia (DC) Activity/Diet/Wound Care/Special Instructions: Please see your PCP and drill rig operator helper. Discharge Disposition: HOME SELF-CARE
== END 2022-11-11 12:15 | disposition home or self-care (01) | DRG 193 ==
LOC: EC 10:49 → 3SCARD 13:09
PROVIDERS: ADMIT Internal Medicine; ATTEND Internal Medicine
DX: J18.9 Pneumonia, unspecified organism (principal); G93.41 Metabolic encephalopathy; J44.0 Chronic obstructive pulmonary disease with (acute) lower respiratory infection; I42.8 Other cardiomyopathies; N39.0 Urinary tract infection, site not specified; Z20.822 Contact with and (suspected) exposure to COVID-19; R00.1 Bradycardia, unspecified; I95.9 Hypotension, unspecified; I48.0 Paroxysmal atrial fibrillation; I45.5 Other specified heart block; I11.0 Hypertensive heart disease with heart failure; I50.9 Heart failure, unspecified; M81.0 Age-related osteoporosis without current pathological fracture; M17.11 Unilateral primary osteoarthritis, right knee; Z87.440 Personal history of urinary (tract) infections; Z79.01 Long term (current) use of anticoagulants; Z79.899 Other long term (current) drug therapy; Z90.710 Acquired absence of both cervix and uterus; Z88.0 Allergy status to penicillin; I27.20 Pulmonary hypertension, unspecified; M16.11 Unilateral primary osteoarthritis, right hip
CPT/HCPCS: 36415; 71046; 80048; 80053; 81001; 83605; 83735; 84145; 84443; 84484; 85025; 85610; 85730; 87040; 87086; 87636; 93005; 93306; 94760; 96365; 99285

== ENCOUNTER 2023-01-03 16:23 | Emergency (ER) | payer MEDICARE, OTHER ==
[2023-01-03 16:28] LABS: Glucose,Whole Blood 108 mg/dL (70-110)
[2023-01-03 16:47] VITALS: RESP 18
[2023-01-03] MEDS ORDERED: ACETAMINOPHEN TAB 500 MG TAB PO STA (17:36)
--- NOTE | 2023-01-03 18:26 | XR ---
PROCEDURE: XR wrist complete LT - 3V DATE AND TIME: 01/03/2023 6:10 PM CLINICAL INDICATION: PHH; fall, pain TECHNIQUE: Department protocol COMPARISON: None FINDINGS: There is a comminuted apex-volar intra-articular transverse fracture of the distal radius, with one half shaft width override. Transverse fracture through the base of the ulnar styloid also no rajendra. No other fracture or malalignment. IMPRESSION: Distal radius / ulna fractures.
--- NOTE | 2023-01-03 19:45 | ED ---
Fall HPI - General Chief Complaint: Fall Stated Complaint: Fall Source: patient Mode of arrival: EMS - History of Present Illness Initial Comments: 82-year-old female presents to the emergency department after a fall. Patient states that she was pushing a shopping cart when she attempted to push it up a curb. She lost her balance and fell landing on her left wrist. Patient has obvious deformity. Denies hitting her head. No neck or back pain. She does take Eliquis. She denies any numbness or tingling in her hand. She is right- hand dominant. No other alleviating, precipitating or modifying factors - Related Data Home Medications Medication Instructions Recorded Confirmed Montelukast [Singulair] 10 mg PO HS 03/14/19 01/03/23 Spironolactone [Aldactone] 25 mg PO DAILY 12/16/20 01/03/23 Cranberry Fruit Extract [Cranberry] 500 mg PO DAILY 11/07/22 01/03/23 Estradiol Cream [Estrace Cream 0.5 applic VAGINAL DIRECTED 11/07/22 01/03/23 0.01%] Fesoterodine Fumarate 4 mg PO DAILY 11/07/22 01/03/23 [Fesoterodine Fumarate ER] Metoprolol Succinate (ER) [Toprol 12.5 mg PO DAILY 01/03/23 01/03/23 Xl] Previous Rx's Medication Instructions Recorded Apixaban [Eliquis] 5 mg PO BID #60 tab 03/18/19 Losartan [Cozaar] 50 mg PO DAILY #60 tab 11/11/22 HYDROcodone/APAP 7.5-325MG [[place] 1 tab PO Q4HR PRN 3 Days #12 tab 01/03/23 7.5-325] Allergies Allergy/AdvReac Type Severity Reaction Status Date / Time Penicillins Allergy Unknown Verified 01/03/23 17:55 Review of Systems ROS Statement: Those systems with pertinent positive or pertinent negative responses have been documented in the HPI. ROS Other: All systems not noted in ROS Statement are negative. Past Medical History Past Medical History: Atrial Fibrillation, Heart Failure, Musculoskeletal Di sorder, Osteoarthritis (OA) Additional Past Medical History / Comment(s): Hx Allergies, UTI's, osteoporosis, Rt hip OA. History of Any Multi-Drug Resistant Organisms: None Reported Past Surgical History: Adenoidectomy, Hysterectomy, Joint Replacement, Tonsillectomy Additional Past Surgical History / Comment(s): THBSO, Rhinoplasty. Colonoscopy. Samm Cataracts. Cardioversion. Total Rt Hip Past Anesthesia/Blood Transfusion Reactions: No Reported Reaction Past Psychological History: No Psychological Hx Reported Smoking Status: Never smoker Past Alcohol Use History: None Reported Past Drug Use History: None Reported - Past Family History Father Additional Family Medical History / Comment(s): Alcoholism Mother Family Medical History: CVA/TIA Additional Family Medical History / Comment(s): . General Exam Limitations: no limitations General appearance: alert, in no apparent distress Head exam: Present: atraumatic, normocephalic, normal inspection Eye exam: Present: normal appearance, PERRL, EOMI. Absent: scleral icterus, conjunctival injection, periorbital swelling ENT exam: Present: normal exam, mucous membranes moist Neck exam: Present: normal inspection. Absent: tenderness, meningismus, lymphadenopathy Respiratory exam: Present: normal lung sounds bilaterally. Absent: respiratory distress, wheezes, rales, rhonchi, stridor Cardiovascular Exam: Present: regular rate, normal rhythm, normal heart sounds. Absent: systolic murmur, diastolic murmur, rubs, gallop, clicks GI/Abdominal exam: Present: soft, normal bowel sounds. Absent: distended, tenderness, guarding, rebound, rigid Extremities exam: Present: tenderness (to left distal forearm with obvious swelling and deformity. 2+ radial and ulnar pulses. intact sensation in the radial, ulnar and median distributions), normal capillary refill. Absent: pedal edema, joint swelling, calf tenderness Back exam: Present: normal inspection Neurological exam: Present: alert, oriented X3, CN II-XII intact Psychiatric exam: Present: normal affect, normal mood Skin exam: Present: warm, dry, intact, normal color. Absent: rash Course Vital Signs 01/03/23 01/03/23 16:24 20:12 Temperature 96.8 F L 97.9 F Pulse Rate 67 66 Respiratory 18 18 Rate Blood Pressure 139/69 149/69 O2 Sat by Pulse 95 96 Oximetry Procedures - Orthopedic Fracture Reduction Fracture #1 Consent Obtained: verbal consent Side: left Fracture Reduction Location: radius Analgesia: hematoma block Technique: direct manipulation Post Reduction X-rays Demonstrate: acceptable reduction Post-Reduction Neuro Exam: intact Post-Reduction Vascular Exam: intact Splint Applied: Yes Patient Tolerated Procedure: well, no complications - Orthopedic Splinting/Casting Injury #1 Side: left Upper Extremity Injury Location: short arm Upper Extremity Immobilizer: sugar tong splint, Jame wrap, synthetic pre-padded splint Medical Decision Making - Medical Decision Making Was pt. sent in by a medical professional or institution (MADDIE Granger, [employer] P[employer]AGE EXAMINER, urgent care, hospital, or residential...) When possible be specific @ -No Did you speak to anyone other than the patient for history (EMS, parent, family, police, friend...)? What history was obtained from this source @ -EMS Did you review nursing and triage notes (agree or disagree)? Why? @ -I reviewed and agree with nursing and triage notes Were old charts reviewed (outside hosp., previous admission, EMS record, old EKG, old radiological studies, urgent care reports/EKG's, residential records)? Report findings @ -No old charts were reviewed Differential Diagnosis (chest pain, altered mental status, abdominal pain women, abdominal pain men, vaginal bleeding, weakness, fever, dyspnea, syncope, headache, dizziness, GI bleed, back pain, seizure, CVA, palpatations, mental health, musculoskeletal)? @ -Differential Musculoskeletal Muscular strain, contusion, ligament sprain, fracture, arthritis, septic arthritis, bursitis, cellulitis, muscle spasm, nerve compression, DVT, arterial occlusion, herpes zoster, electrolyte abnormality, tumor.... This is not meant to be in all inclusive list EKG interpreted by me (3pts min.). @ -yes and demonstrates sinus rhythm with a rate of 60. HI interval 204. QRS 120. QTC 444. no acute ST segment elevation or depression X-rays interpreted by me (1pt min.). @ -Yes and demonstrates distal radius and ulnar fracture CT interpreted by me (1pt min.). @ -None done U/S interpreted by me (1pt. min.). @ -None done What testing was considered but not performed or refused? (CT, X-rays, U/S, labs)? Why? @ -None What meds were considered but not given or refused? Why? @ -None Did you discuss the management of the patient with other professionals (professionals i.e. MADDIE Granger, [employer] EXAMINER, lab, RT, psych nurse, clinical social worker, pickle water pump operator, teacher, donor relations officer, rn case manager)? Give summary @ -No Was smoking cessation discussed for >3mins.? @ -No Was critical care preformed (if so, how long)? @ -No Were there social determinants of health that impacted care today? How? (Homelessness, low income, unemployed, alcoholism, drug addiction, transportation, low edu. Level, literacy, decrease access to med. care, [facility], rehab)? @ -No Was there de-escalation of care discussed even if they declined (Discuss DNR or withdrawal of care, Hospice)? DNR status @ -No What co-morbidities impacted this encounter? (DM, HTN, Smoking, COPD, CAD, Cancer, CVA, ARF, Chemo, Hep., AIDS, mental health diagnosis, sleep apnea, morbid obesity)? @ -A. fib on Eliquis Was patient admitted / discharged? Hospital course, mention meds given and route, prescriptions, significant lab abnormalities, going to OR and other pertinent info. @ -Upon arrival patient was placed into trauma 1. History and physical exam was performed. X-ray was performed which demonstrates a distal radius and ulnar fracture. Hematoma block performed and fracture is reduced. Patient is placed in Ortho-Glass. She will follow-up with orthopedics for further management and return for any new or worsening symptoms. Patient remains neurovascularly intact before and after reduction. She is given medication for pain control at home and instructed to return for any new or worsening symptoms. Patient agreeable to plan and discharged in stable condition Undiagnosed new problem with uncertain prognosis? @ -No Drug Therapy requiring intensive monitoring for toxicity (Heparin, Nitro, Insulin, Cardizem)? @ -No Were any procedures done? @ -No Diagnosis/symptom? @ -Acute fall, acute distal left radius and ulnar fracture Acute, or Chronic, or Acute on Chronic? @ -Acute Uncomplicated (without systemic symptoms) or Complicated (systemic symptoms)? @ -Uncomplicated Side effects of treatment? @ -No Exacerbation, Progression, or Severe Exacerbation? @ -No Poses a threat to life or bodily function? How? (Chest pain, [place], [place], pneumonia, PE, COPD, DKA, ARF, appy, cholecystitis, CVA, Diverticulitis, Homicidal, Suicidal, threat to staff... and all critical care pts) @ -No - Lab Data Lab Results 01/03/23 Range/Units 16:26 POC Glucose (mg/dL) 108 (70-110) mg/dL POC Glu Piece Maker ID Allyn Ponce Disposition Clinical Impression: Fall, Left wrist fracture Disposition: HOME SELF-CARE Condition: Stable Instructions (If sedation given, give patient instructions): Wrist Fracture in Adults (ED) Additional Instructions: Please rest, ice and elevate the extremity. Take the pain medications as needed. Call the orthopedic office in the morning to make an appointment. Return for any new or worsening symptoms Prescriptions: HYDROcodone/APAP 7.5-325MG [[place] 7.5-325] 1 tab PO Q4HR PRN 3 Days #12 tab PRN Reason: Pain Is patient prescribed a controlled substance at d/c from ED?: Yes When asked, does pt state using other controlled substances?: No If prescribed controlled substance>3 days was MAPS reviewed?: Prescribed <3 Days If opioid is for acute pain is fill amount 7 days or less?: Yes Referrals: Addi Craig MD [Primary Care Provider] - 1-2 days Enzo Ny DO [Doctor of Osteopathic Medicine] - 1-2 days Ascencion Arreola MD [STAFF PHYSICIAN] - 1-2 days Time of Disposition: 19:52
--- NOTE | 2023-01-03 19:59 | XR ---
PROCEDURE: XR wrist limited LT - 3V DATE AND TIME: 01/03/2023 7:41 PM CLINICAL INDICATION: PHH; post reduction TECHNIQUE: Department protocol COMPARISON: Prereduction radiographs 01/03/2023. FINDINGS: Interval improvement in the anatomic positioning and alignment of the fracture fragments. IMPRESSION: Postreduction radiographs
[2023-01-03 20:26] VITALS: BP 149/69; PULSE 66; TEMP 97.9
== END 2023-01-03 20:13 | disposition home or self-care (01) ==
LOC: EC 16:23
DX: S52.592A Other fractures of lower end of left radius, initial encounter for closed fracture (principal); S52.692A Other fracture of lower end of left ulna, initial encounter for closed fracture; I48.91 Unspecified atrial fibrillation; I50.9 Heart failure, unspecified; Z79.899 Other long term (current) drug therapy; Z88.0 Allergy status to penicillin; W18.30XA Fall on same level, unspecified, initial encounter; Y92.512 Supermarket, store or market as the place of occurrence of the external cause
CPT/HCPCS: 25605; 36415; 93005; 99285